=== PATIENT | male | born 1960 | race Caucasian/White ===

== ENCOUNTER 2016-08-23 13:11 | Inpatient (IN) | payer OTHER ==
[~2016-08-23] VITALS: Ht 177.8 cm; Wt 90.0 kg
[2016-08-23] VITALS (11 sets, daily range): BP systolic 108–178; BP diastolic 77–118; PULSE 87–150; RESP 14–23; TEMP 98.5; O2SAT 94–99
[~2016-08-23 13:11] MED LIST: AMIO200 PO; ASPI81TA21 PO; ATOR20TA42 PO; COUM1TAB PO; COUM5TAB PO; DIGO.25 PO; DILTCD240 PO; ENOX60P SQ; GLUCTAB PO; METO25 PO; WARF5TAB PO
[2016-08-23] MEDS ORDERED: DILTIAZEM HCL 25 MG/5 ML VIAL IV PUSH ONE (13:45)
[2016-08-23] MEDS ORDERED: SODIUM CHLORIDE 0.9% FLUSH 5 ML FLUSH IVF PRN ×3 (13:45→16:45)
[2016-08-23] MEDS ORDERED: ASPIRIN 81 MG CHEW TAB PO ONE (13:45)
--- NOTE | 2016-08-23 13:48 | PD ---
HPI . Rapid heartbeat Chief Complaint: Cardiac Complaint Time Seen by Provider: 13:30 Travel History International Travel<30 days: No Contact w/Intl Traveler<30days: No Traveled to known affect area: No History of Present Illness HPI Patient was sent to us from his primary care physician's office for rapid heartbeat. Patient reports no complaints. He states that he went there today to reestablish care. He states that his insurance had run out and he just recently got insurance back. As been out of all of his medications except Coumadin for a while now. He ran out of Coumadin about 3 days ago. He states that he always has an irregular heartbeat. 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) Psychiatric: No Reproductive: No Respiratory: No Seizures: Yes (NO MEDS) Thyroid Disease: No Tetanus Vaccination: < 5 Years Influenza Vaccination: No Past Surgical History Abdominal Surgery: Yes (APPENDECTOMY) Appendectomy: Yes Body Medical Devices: CARDIAC STENTS, plates and pins under r eye, AORTIC VALVE Cardiac Surgery: Yes (AVR) Coronary Artery Bypass Graft: Yes (TRIPLE BYPASS MAR 2015) Coronary Stent: Yes Ear Surgery: No Endocrine Surgery: No Eye Surgery: Yes (RT EYE SOCKET SHATTERED R/T TRAUMA) Genitourinary Surgery: No Joint Replacement: No Oral Surgery: Yes (TONSILLECTOMY) Pacemaker: No Thoracic Surgery: No Tonsillectomy: Yes Other Surgery: Yes (open heart , tonsilectomy, appy, cancer removal, facial) Social History Alcohol Use: Yes (often) Tobacco Use: Yes (CIGARETTES 1 PPD) Substance Use: No Allergies-Medications (Allergen,Severity, Reaction): Coded Allergies: No Known Allergies (Verified , 08/23/16) Reported Meds & Prescriptions Reported Meds & Active Scripts Active Reported Metoprolol Tartrate 25 Mg Tab 25 Mg PO BID Metformin ER (Metformin HCl) 500 Mg Tab 500 Mg PO DAILY Warfarin 10 Mg Tab 9 Mg PO DAILY Diltiazem HCl (Diltiazem HCl Extended Release) 360 Mg Cap 240 Mg MT DAILY Digoxin 0.25 Mg Tab 0.25 Mg PO DAILY Lipitor (Atorvastatin Calcium) 20 Mg Tab 20 Mg PO HS Aspirin 81 Mg Tabdr 81 Mg PO DAILY Review of Systems Except as stated in HPI: all other systems reviewed are Neg HENT: No: Lightheadedness Cardiovascular: No: Chest Pain or Discomfort, Palpitations Respiratory: No: Shortness of Breath Physical Exam Narrative GENERAL: Healthy-appearing older gentleman in no acute distress. SKIN: Warm and dry. HEAD: Atraumatic. Normocephalic. EYES: Pupils equal and round. ENT: No nasal bleeding or discharge. Mucous membranes pink and moist. NECK: Trachea midline. No JVD. CARDIOVASCULAR: Regular, rapid rate and rhythm. RESPIRATORY: No accessory muscle use. Lungs are clear with full air movement throughout. GASTROINTESTINAL: Abdomen soft, non-tender, nondistended. MUSCULOSKELETAL: No obvious deformities. No edema. NEUROLOGICAL: Awake and alert. No obvious cranial nerve deficits. Motor grossly within normal limits. Normal speech. PSYCHIATRIC: Appropriate mood and affect; insight and judgment normal. Data Data Last Documented VS Vital Signs Date Time Temp Pulse Resp B/P Pulse Ox O2 Delivery O2 Flow Rate FiO2 08/23/16 14:04 98 18 133/93 97 Room Air 08/23/16 13:13 98.5 Orders Ecg Monitoring (08/23/16 13:31) Blood Pressure (08/23/16 13:31) Iv Access Insert/Monitor (08/23/16 13:31) Oximetry (08/23/16 13:31) Vital Signs (08/23/16 13:31) Diltiazem Inj (Cardizem Inj) (08/23/16 13:45) Diltiazem Inj (Cardizem Inj) (08/23/16 13:45) Sodium Chloride 0.9% Flush (Ns Flush) (08/23/16 13:45) Electrocardiogram (08/23/16 13:32) Basic Metabolic Panel (Bmp) (08/23/16 13:32) Ckmb (Isoenzyme) Profile (08/23/16 13:32) Complete Blood Count With Diff (08/23/16 13:32) D-Dimer (08/23/16 13:32) Magnesium (Mg) (08/23/16 13:32) Prothrombin Time / Inr (Pt) (08/23/16 13:32) Act Partial Throm Time (Ptt) (08/23/16 13:32) Troponin I (08/23/16 13:32) Chest, Single Ap (08/23/16 13:32) Bilateral Bp Monitoring (08/23/16 13:32) Oxygen Administration (08/23/16 13:32) Aspirin Chew (Aspirin Chew) (08/23/16 13:45) Sodium Chloride 0.9% Flush (Ns Flush) (08/23/16 13:45) CKMB (08/23/16 13:35) CKMB% (08/23/16 13:35) Labs Laboratory Tests Test 08/23/16 13:35 White Blood Count 11.4 TH/MM3 Red Blood Count 5.22 MIL/MM3 Hemoglobin 17.4 GM/DL Hematocrit 51.3 % Mean Corpuscular Volume 98.2 FL Mean Corpuscular Hemoglobin 33.3 PG Mean Corpuscular Hemoglobin 33.9 % Concent Red Cell Distribution Width 14.4 % Platelet Count 226 TH/MM3 Mean Platelet Volume 8.2 FL Neutrophils (%) (Auto) 67.9 % Lymphocytes (%) (Auto) 20.6 % Monocytes (%) (Auto) 8.2 % Eosinophils (%) (Auto) 2.6 % Basophils (%) (Auto) 0.7 % Neutrophils # (Auto) 7.8 TH/MM3 Lymphocytes # (Auto) 2.4 TH/MM3 Monocytes # (Auto) 0.9 TH/MM3 Eosinophils # (Auto) 0.3 TH/MM3 Basophils # (Auto) 0.1 TH/MM3 CBC Comment DIFF FINAL Differential Comment Prothrombin Time 11.6 SEC Prothromb Time International 1.0 RATIO Ratio Activated Partial 27.2 SEC Thromboplast Time D-Dimer Quantitative (PE/DVT) 1.18 MG/L FEU Sodium Level 138 MEQ/L Potassium Level 4.2 MEQ/L Chloride Level 107 MEQ/L Carbon Dioxide Level 24.4 MEQ/L Anion Gap 7 MEQ/L Blood Urea Nitrogen 26 MG/DL Creatinine 1.15 MG/DL Estimat Glomerular Filtration 66 ML/MIN Rate Random Glucose 90 MG/DL Calcium Level 8.8 MG/DL Magnesium Level 2.2 MG/DL Total Creatine Kinase 110 U/L Creatine Kinase MB 1.8 NG/ML Troponin I 0.02 NG/ML [facility] Medical Decision Making Medical Screen Exam Complete: Yes Emergency Medical Condition: Yes Medical Record Reviewed: Yes (medical history is significant for a flutter, previous multivessel CABG and previous St. found. His last echo was done about a year ago and showed an ejection fraction of 50-55%. He had mild left ventricular dilation.) Interpretation(s) EKG shows atrial flutter with a rate of 146. The atrial flutter is not new. However his rate has been previously controlled. Differential Diagnosis Differential diagnosis includes but is not limited to tachycardia, SVT, atrial fibrillation with rapid ventricular response, atrial flutter with rapid ventricular. Narrative Course Patient presents asymptomatic with the chief complaint of a rapid heart rate. He is in atrial flutter with a rapid ventricular response. I have ordered Cardizem. Patient's heart rate quickly went below 100 following the Cardizem bolus. He has continued to have a rate less than 100. He has not required an additional bolus of Cardizem nor has he required a drip. Last Impressions Chest X-Ray 08/23/16 1332 Signed Impressions: Service Date/Time: Tuesday, August 23, 2016 13:44 - CONCLUSION: 1. Coarse streaky opacity at the left lung base which appears mildly increased from the prior study. 2. The left costophrenic angle now appears mildly blunted which could indicate a small effusion. 3. That is post median sternotomy with no evidence of perihilar edema. Willian Rai MD The chest x-ray was independently viewed by me. The patient reports no respiratory distress. CBC & BMP Diagram 08/23/16 13:35 Cardiac enzymes are negative. INR is 1.18. I will restart his usual medications. I will give him a prescription for Lovenox to use until his INR becomes therapeutic. He needs to follow up with his doctor later this week. Diagnosis Primary Impression: Paroxysmal atrial fibrillation Additional Impression: Subtherapeutic international normalized ratio (INR) Additional Instructions: Lovenox for now until INR is appropriate. See your doctor later this week for recheck. Scripts Enoxaparin Inj (Lovenox Inj)100 Mg/Ml Syr90 Mg SQ BID #10 SYRINGE Ref 0 Prov:Aliza Haro MD 08/23/16 Metoprolol Tartrate 25 Mg Tab25 Mg PO BID #60 TAB Ref 0 Prov:Aliza Haro MD 08/23/16 Metformin ER 500 Mg Cut733 Mg PO DAILY 90 Days Prov:Aliza Haro MD 08/23/16 Warfarin 10 Mg Tab9 Mg PO DAILY #30 TAB Ref 0 Prov:Aliza Haro MD 08/23/16 Diltiazem HCl Extended Release (Diltiazem HCl)360 Mg Mnl055 Mg MT DAILY 90 Days Prov:Aliza Haro MD 08/23/16 Digoxin 0.25 Mg Tab0.25 Mg PO DAILY #30 TAB Ref 0 Prov:Aliza Haro MD 08/23/16 Atorvastatin (Lipitor)20 Mg Tab20 Mg PO HS #30 TAB Ref 0 Prov:Aliza Haro MD 08/23/16 Aspirin 81 Mg Tabdr81 Mg PO DAILY 90 Days Prov:Aliza Haro MD 08/23/16 Disposition: 01 DISCHARGE HOME Condition: Stable Aliza Haro MD Aug 23, 2016 13:48
[2016-08-23 13:56] LABS: AUTOMATED NEUTROPHIL # 7.8 TH/MM3 (1.8-7.7); BASOPHIL # 0.1 TH/MM3 (0-0.2); BASOPHIL % 0.7 % (0.0-2.0); EOSINOPHIL # 0.3 TH/MM3 (0-0.4); EOSINOPHIL % 2.6 % (0.0-4.0); HEMATOCRIT 51.3 % (39.0-51.0); HEMO FLAGS DIFF FINAL; LYMPH % 20.6 % (9.0-44.0); LYMPHOCYTE # 2.4 TH/MM3 (1.0-4.8); MEAN CELL VOLUME 98.2 FL (80.0-100.0); MEAN CORPUSCULAR HEMOGLOBIN 33.3 PG (27.0-34.0); MEAN CORPUSCULAR HGB CONC 33.9 % (32.0-36.0); MONO % 8.2 % (0.0-8.0); NEUT % 67.9 % (16.0-70.0); PLATELET COUNT 226 TH/MM3 (150-450); RED BLOOD COUNT 5.22 MIL/MM3 (4.50-5.90); RED CELL DISTRIBUTION WIDTH 14.4 % (11.6-17.2); WHITE BLOOD COUNT 11.4 TH/MM3 (4.0-11.0)
[2016-08-23] MEDS ORDERED: DILT1CAP9 MT ×2 (14:04→14:47)
[2016-08-23] MEDS ORDERED: WARF-22 PO ×2 (14:04→14:47)
[2016-08-23] MEDS ORDERED: DIGO0.25 PO ×2 (14:04→14:47)
[2016-08-23] MEDS ORDERED: METO25TA3 PO ×2 (14:04→14:47)
[2016-08-23] MEDS ORDERED: LIPI20TA PO ×2 (14:04→14:47)
[2016-08-23] MEDS ORDERED: METF-639 PO ×2 (14:04→14:47)
[2016-08-23] MEDS ORDERED: ASPI1TAB69 PO ×2 (14:04→14:47)
[2016-08-23 14:11] LABS: APTT (PATIENT) 27.2 SEC (24.3-30.1); PROTHROMBIN TIME - PATIENT 11.6 SEC (9.8-11.6)
[2016-08-23 14:15] LABS: ANION GAP 7 MEQ/L (5-15); BICARBONATE 24.4 MEQ/L (21.0-32.0); BLOOD UREA NITROGEN 26 MG/DL (7-18); CHLORIDE 107 MEQ/L (98-107); CREATINE KINASE 110 U/L (39-308); GLOMERULAR FILTRATION RATE 66 ML/MIN (>89); MAGNESIUM 2.2 MG/DL (1.5-2.5); POTASSIUM 4.2 MEQ/L (3.5-5.1); SODIUM (NA) 138 MEQ/L (136-145)
[2016-08-23 14:28] LABS: CKMB 1.8 NG/ML (0.5-3.6)
--- NOTE | 2016-08-23 14:31 | RADRPT ---
EXAM DATE/TIME: 08/23/2016 13:44 [facility] COMPARISON: CHEST SINGLE AP, March 26, 2015, 5:08. CHEST SINGLE AP, September 11, 2015, 12:15. INDICATIONS : Shortness of breath. MEDICAL HISTORY : Hypertension. Myocardial infarction. SURGICAL HISTORY : CABG. ENCOUNTER: Initial ACUITY: 1 day PAIN SCORE: 0/10 LOCATION: Bilateral chest FINDINGS: A single AP portable erect view of the chest was obtained and again demonstrates that the patient is status post median sternotomy there is coarse streaky opacity at the left lung base which is mildly i ncreased from the prior study. The left lateral costophrenic angle appears mildly blunted. The right lung is clear. The heart size remains at the upper limits of normal with no perihilar edema. There is an artificial heart valve in place. CONCLUSION: 1. Coarse streaky opacity at the left lung base which appears mildly increased from the prior study. 2. The left costophrenic angle now appears mildly blunted which could indicate a small effusion. 3. That is post median sternotomy with no evidence of perihilar edema. Willian Rai MD on August 23, 2016 at 14:27 Board Certified Radiologist. This report was verified electronically.
[2016-08-23] MEDS ORDERED: ENOX100P SQ (14:47)
[2016-08-23] MEDS: DILTIAZEM INJ 125 MG in SODIUM CHLORIDE 0.9% INJ 100 ML IV SCH ×2 (16:14→16:38)
[2016-08-23] MEDS ORDERED: SODIUM CHLORIDE 0.9% FLUSH 5 ML FLUSH FLUSH PRN (16:45)
[2016-08-23] MEDS ORDERED: BISACODYL 10 MG SUPP PR PRN (16:45)
[2016-08-23] MEDS ORDERED: DILTIAZEM INJ 125 MG in SODIUM CHLORIDE 0.9% INJ 100 ML IV SCH (16:45)
[2016-08-23] MEDS ORDERED: ACETAMINOPHEN 325 MG TAB PO PRN (16:45)
[2016-08-23] MEDS ORDERED: NALOXONE HCL 0.4 MG/ML AMP IV PRN (16:45)
[2016-08-23] MEDS ORDERED: ENOXAPARIN SODIUM 40 MG/0.4 ML SYRINGE SQ SCH (16:45)
[2016-08-23] MEDS ORDERED: ONDANSETRON HCL 4 MG/2 ML VIAL IVP PRN (16:45)
[2016-08-23] MEDS ORDERED: MAGNESIUM HYDROXIDE SUSP 30 ML CUP PO PRN (16:45)
[2016-08-23] MEDS ORDERED: DILTIAZEM HCL 50 MG/10 ML VIAL IV PUSH ONE (17:00)
[2016-08-23] MEDS ORDERED: DEXTROSE 50% IN WATER 50 ML VIAL(D50) IV PUSH PRN (17:15)
[2016-08-23] MEDS ORDERED: GLUCAGON 1 MG/ML VIAL OTHER PRN (17:15)
[2016-08-23] MEDS ORDERED: WARFARIN SOD 3 MG TAB PO SCH (17:30)
[2016-08-23] MEDS: metFORMIN HCL 500 MG TAB PO SCH (18:20)
--- NOTE | 2016-08-23 19:28 | HHI.HP ---
HPI Service CP Hospitalists Primary Care Physician Yury Garcia Admission Diagnosis AF with RVR Chief Complaint: rapid heart rate Travel History International Travel<30 Days: No Contact w/Intl Traveler <30 Da: No Traveled to Known Affected Are: No History of Present Illness 56 y/o male with history of atrial fib /flutter on metoprolol and cardiazem also on coumadin who just got insurance and was without and waws unable to take his meds . Patient went to [facility] new PCP found to have rapid heart rate and sent to [place] for evaluation. In [place] was found to be in rapid a flutter started on cardiazem which initially helped then heart rate went back up and admitted and will restart his known medication . Patient to restart coumadin and use lovenox until therapeutis . Patient with hx AVR. Patient denies chest pain, shortness of breath,nausea or vomit. Review of Systems Cardiovascular: COMPLAINS OF: Palpitations Past Family Social History Past Medical History hyperlipidemia,CAD,dm,djd hx melanoma ,atrial fib,seizure in past Past Surgical History appendix,cardiac stent,triple by passs ,AVR,rt eye trama tonsil Reported Medications metoprolol 25 bid,metformin 250bid,coumadin 9,diltiazem 240,digoxin.25,[id number] ,asa Allergies: Coded Allergies: No Known Allergies (Verified , 08/23/16) Social History smokes 1ppd Physical Exam Vital Signs Vital Signs Date Time Temp Pulse Resp B/P Pulse Ox O2 Delivery O2 Flow Rate FiO2 08/23/16 18:22 115 20 140/94 97 Room Air 08/23/16 17:31 114 20 141/94 95 Room Air 08/23/16 16:12 94 20 126/85 97 Room Air 08/23/16 14:04 98 18 133/93 97 Room Air 08/23/16 13:43 148 18 178/111 96 Room Air 08/23/16 13:38 97 Room Air 08/23/16 13:38 20 97 Room Air 08/23/16 13:30 148 20 97 Room Air 08/23/16 13:13 98.5 150 14 166/118 96 Room Air Physical Exam GENERAL: This is a well-nourished, well-developed patient, in no apparent distress. SKIN: No rashes, ecchymoses or lesions. Cool and dry. HEAD: Atraumatic. Normocephalic. No temporal or scalp tenderness. EYES: Pupils equal round and reactive. Extraocular motions intact. No scleral icterus. No injection or drainage. ENT: Nose without bleeding, purulent drainage or septal hematoma. Throat without erythema, tonsillar hypertrophy or exudate. Uvula midline. Airway patent. NECK: Trachea midline. No JVD or lymphadenopathy. Supple, nontender, no meningeal signs. CARDIOVASCULAR: IRREG rate and rhythm without murmurs, gallops, or rubs. RESPIRATORY: Clear to auscultation. Breath sounds equal bilaterally. No wheezes , rales, or rhonchi. GASTROINTESTINAL: Abdomen soft, non-tender, nondistended. No hepato-splenomegaly , or palpable masses. No guarding. MUSCULOSKELETAL: Extremities without clubbing, cyanosis, or edema. No joint tenderness, effusion, or edema noted. No calf tenderness. Negative Homans sign bilaterally. NEUROLOGICAL: Awake and alert. Cranial nerves II through XII intact. Motor and sensory grossly within normal limits. Five out of 5 muscle strength in all muscle groups. Normal speech. Laboratory Laboratory Tests Test 08/23/16 13:35 White Blood Count 11.4 Red Blood Count 5.22 Hemoglobin 17.4 Hematocrit 51.3 Mean Corpuscular Volume 98.2 Mean Corpuscular Hemoglobin 33.3 Mean Corpuscular Hemoglobin 33.9 Concent Red Cell Distribution Width 14.4 Platelet Count 226 Mean Platelet Volume 8.2 Neutrophils (%) (Auto) 67.9 Lymphocytes (%) (Auto) 20.6 Monocytes (%) (Auto) 8.2 Eosinophils (%) (Auto) 2.6 Basophils (%) (Auto) 0.7 Neutrophils # (Auto) 7.8 Lymphocytes # (Auto) 2.4 Monocytes # (Auto) 0.9 Eosinophils # (Auto) 0.3 Basophils # (Auto) 0.1 CBC Comment DIFF FINAL Differential Comment Prothrombin Time 11.6 Prothromb Time International 1.0 Ratio Activated Partial 27.2 Thromboplast Time D-Dimer Quantitative (PE/DVT) 1.18 Sodium Level 138 Potassium Level 4.2 Chloride Level 107 Carbon Dioxide Level 24.4 Anion Gap 7 Blood Urea Nitrogen 26 Creatinine 1.15 Estimat Glomerular Filtration 66 Rate Random Glucose 90 Calcium Level 8.8 Magnesium Level 2.2 Total Creatine Kinase 110 Creatine Kinase MB 1.8 Troponin I 0.02 Result Diagram: 08/23/16 1335 08/23/16 1335 Imaging Last 24 hours Impressions Chest X-Ray 08/23/16 1332 Signed Impressions: Service Date/Time: Tuesday, August 23, 2016 13:44 - CONCLUSION: 1. Coarse streaky opacity at the left lung base which appears mildly increased from the prior study. 2. The left costophrenic angle now appears mildly blunted which could indicate a small effusion. 3. That is post median sternotomy with no evidence of perihilar edema. Willian Rai MD Course in er started on cardiazem IV Assessment and Plan Problem List: (1) Paroxysmal atrial fibrillation Status: Acute Plan: started on cardiazem drip and will restart his regular meds (2) Subtherapeutic international normalized ratio (INR) Status: Acute Plan: restart coumadin and add lovenox until therapeutic (3) Diabetes Status: Chronic Plan: continue home meds Assessment and Plan further plan depending on response to cardiazem also ? abnormal chest xray no signs of chf or pneumonia will follow up xray and lab work . Patient did have abnormal d dimmer will get CTA Code Status full Discussed Condition With patient Physician Certification 2 Midnight Certification Type: Admission for Inpatient Services Order for Inpatient Services The services are ordered in accordance with Medicare regulations or non- Medicare payer requirements, as applicable. In the case of services not specified as inpatient-only, they are appropriately provided as inpatient services in accordance with the 2-midnight benchmark. Estimated LOS (days): 3 3 days is the estimated time the patient will need to remain in the hospital, assuming treatment plan goals are met and no additional complications. Post-Hospital Plan: Not yet determined Problem Qualifiers (1) Diabetes: Brandon Nicholson MD Aug 23, 2016 19:28
--- NOTE | 2016-08-23 19:44 | HHI.HP ---
HPI Service CP Hospitalists Primary Care Physician Yury Garcia Admission Diagnosis AF with RVR Travel History International Travel<30 Days: No Contact w/Intl Traveler <30 Da: No Traveled to Known Affected Are: No History of Present Illness 56 y/o male with history of atrial fib /flutter on metoprolol and cardiazem also on coumadin who just got insurance and was without and waws unable to take his meds . Patient went to [facility] new PCP found to have rapid heart rate and sent to [place] for evaluation. In er was found to be in rapid a flutter started on cardiazem which initially helped then heart rate went back up and admitted and will restart his known medication . Patient to restart coumadin and use lovenox until therapeutis . Patient with hx AVR. Patient denies chest pain, shortness of breath,nausea or vomit. Past Family Social History Past Medical History hyperlipidemia,CAD,dm,djd hx melanoma ,atrial fib,seizure in past Past Surgical History appendix,cardiac stent,triple by passs ,AVR,rt eye trama tonsil Allergies: Coded Allergies: No Known Allergies (Verified , 08/23/16) Social History smokes 1ppd Physical Exam Vital Signs Vital Signs Date Time Temp Pulse Resp B/P Pulse Ox O2 Delivery O2 Flow Rate FiO2 08/23/16 18:22 115 20 140/94 97 Room Air 08/23/16 17:31 114 20 141/94 95 Room Air 08/23/16 16:12 94 20 126/85 97 Room Air 08/23/16 14:04 98 18 133/93 97 Room Air 08/23/16 13:43 148 18 178/111 96 Room Air 08/23/16 13:38 97 Room Air 08/23/16 13:38 20 97 Room Air 08/23/16 13:30 148 20 97 Room Air 08/23/16 13:13 98.5 150 14 166/118 96 Room Air Physical Exam GENERAL: This is a well-nourished, well-developed patient, in no apparent distress. SKIN: No rashes, ecchymoses or lesions. Cool and dry. HEAD: Atraumatic. Normocephalic. No temporal or scalp tenderness. EYES: Pupils equal round and reactive. Extraocular motions intact. No scleral icterus. No injection or drainage. ENT: Nose without bleeding, purulent drainage or septal hematoma. Throat without erythema, tonsillar hypertrophy or exudate. Uvula midline. Airway patent. NECK: Trachea midline. No JVD or lymphadenopathy. Supple, nontender, no meningeal signs. CARDIOVASCULAR: Regular rate and rhythm without murmurs, gallops, or rubs. RESPIRATORY: Clear to auscultation. Breath sounds equal bilaterally. No wheezes , rales, or rhonchi. GASTROINTESTINAL: Abdomen soft, non-tender, nondistended. No hepato-splenomegaly , or palpable masses. No guarding. MUSCULOSKELETAL: Extremities without clubbing, cyanosis, or edema. No joint tenderness, effusion, or edema noted. No calf tenderness. Negative Homans sign bilaterally. NEUROLOGICAL: Awake and alert. Cranial nerves II through XII intact. Motor and sensory grossly within normal limits. Five out of 5 muscle strength in all muscle groups. Normal speech. Laboratory Laboratory Tests Test 08/23/16 13:35 White Blood Count 11.4 Red Blood Count 5.22 Hemoglobin 17.4 Hematocrit 51.3 Mean Corpuscular Volume 98.2 Mean Corpuscular Hemoglobin 33.3 Mean Corpuscular Hemoglobin 33.9 Concent Red Cell Distribution Width 14.4 Platelet Count 226 Mean Platelet Volume 8.2 Neutrophils (%) (Auto) 67.9 Lymphocytes (%) (Auto) 20.6 Monocytes (%) (Auto) 8.2 Eosinophils (%) (Auto) 2.6 Basophils (%) (Auto) 0.7 Neutrophils # (Auto) 7.8 Lymphocytes # (Auto) 2.4 Monocytes # (Auto) 0.9 Eosinophils # (Auto) 0.3 Basophils # (Auto) 0.1 CBC Comment DIFF FINAL Differential Comment Prothrombin Time 11.6 Prothromb Time International 1.0 Ratio Activated Partial 27.2 Thromboplast Time D-Dimer Quantitative (PE/DVT) 1.18 Sodium Level 138 Potassium Level 4.2 Chloride Level 107 Carbon Dioxide Level 24.4 Anion Gap 7 Blood Urea Nitrogen 26 Creatinine 1.15 Estimat Glomerular Filtration 66 Rate Random Glucose 90 Calcium Level 8.8 Magnesium Level 2.2 Total Creatine Kinase 110 Creatine Kinase MB 1.8 Troponin I 0.02 Result Diagram: 08/23/16 5727 08/23/16 0649 Imaging Last 24 hours Impressions Chest X-Ray 08/23/16 1332 Signed Impressions: Service Date/Time: Tuesday, August 23, 2016 13:44 - CONCLUSION: 1. Coarse streaky opacity at the left lung base which appears mildly increased from the prior study. 2. The left costophrenic angle now appears mildly blunted which could indicate a small effusion. 3. That is post median sternotomy with no evidence of perihilar edema. Willian Rai MD Assessment and Plan Problem List: (1) Paroxysmal atrial fibrillation Status: Acute Plan: started on cardiazem drip and will restart his regular meds (2) Subtherapeutic international normalized ratio (INR) Status: Acute Plan: restart coumadin and add lovenox until therapeutic (3) Diabetes Status: Chronic Plan: continue home meds (4) Atrial flutter with rapid ventricular response Status: Acute Plan: start cardiazem drip restart on medications consult cardiology Assessment and Plan Patient had positive d dimmer will get CTA also chest xray slightly abnormal will recheck and recheck labs Code Status full Discussed Condition With patient Physician Certification 2 Midnight Certification Type: Admission for Inpatient Services Order for Inpatient Services The services are ordered in accordance with Medicare regulations or non- Medicare payer requirements, as applicable. In the case of services not specified as inpatient-only, they are appropriately provided as inpatient services in accordance with the 2-midnight benchmark. Estimated LOS (days): 3 3 days is the estimated time the patient will need to remain in the hospital, assuming treatment plan goals are met and no additional complications. Post-Hospital Plan: Not yet determined Problem Qualifiers (1) Diabetes: Brandon Nicholson MD Aug 23, 2016 19:44
[2016-08-23] MEDS ORDERED: IOHEXOL 350 MG/ML 10 ML VIAL (for RAD DIAG) IV ONE (20:23)
[2016-08-23] MEDS: SODIUM CHLORIDE 0.9% FLUSH 5 ML FLUSH FLUSH SCH (20:52)
[2016-08-23] MEDS: ENOXAPARIN SODIUM 100 MG/ML SYRINGE SQ SCH (20:56)
[2016-08-23] MEDS ORDERED: ATORVASTATIN 20 MG TAB PO SCH (21:00)
[2016-08-23] MEDS ORDERED: METOPROLOL TARTRATE 25 MG TAB PO SCH (21:00)
--- NOTE | 2016-08-23 21:03 | RADRPT ---
EXAM DATE/TIME: 08/23/2016 20:18 [facility] COMPARISON: No previous studies available for comparison. INDICATIONS : Rapid heart beat with elevated D-Dimer. IV CONTRAST: 65 cc Omnipaque 350 (iohexol) IV RADIATION DOSE: 23.16 CTDIvol (mGy) MEDICAL HISTORY : Cardiovascular disease. Hypertension. Diabetes mellitus type 2.Melanoma SURGICAL HISTORY : Cardiac valve replacement ENCOUNTER: Initial ACUITY: 1 day PAIN SCALE: 0/10 LOCATION: Chest TECHNIQUE: Volumetric scanning of the chest was performed using a pulmonary embolism protocol MIP images were reconstructed. Using automated exposure control and adjustment of the mA and/or kV acco rding to patient size, radiation dose was kept as low as reasonably achievable to obtain optimal diag nostic quality images. FINDINGS: No pulmonary embolus is seen. The lungs demonstrate emphysematous change in the mid an d upper lungs. There is some increased density at the posterior left lung base likely representing at electasis or consolidation. There is a lesser degree of consolidation or atelectasis at the anterior lateral left base. There is a mild pleural effusion on the left side. The patient is status post sternotomy. There is a prosthetic aortic valve in place. There is aneurys mal dilatation of the ascending aorta measuring up to 4.5 cm. CONCLUSION: 1. No pulmonary embolus. 2. Diffuse emphysematous change. 3. Mild left pleural effusion with some focal areas of consolidation or atelectasis at the left base. Patrice Cota MD on August 23, 2016 at 20:37 Board Certified Radiologist. This report was verified electronically.
[2016-08-23] MEDS: INSULIN ASPART SUPPLEMENTAL SCALE SQ SCH (21:04)
[2016-08-24] VITALS (7 sets, daily range): BP systolic 111–132; BP diastolic 71–81; PULSE 68–80; RESP 15–20; TEMP 97.8; O2SAT 93–96
--- NOTE | 2016-08-24 05:55 | RADRPT ---
EXAM DATE/TIME: 08/24/2016 05:35 [facility] COMPARISON: CHEST PA & LAT, March 19, 2015, 13:01. INDICATIONS : Chest pain. MEDICAL HISTORY : Hypertension. Myocardial infarction. SURGICAL HISTORY : CABG. ENCOUNTER: Subsequent ACUITY: 2 days PAIN SCORE: 0/10 LOCATION: Bilateral chest FINDINGS: The cardiac silhouette is normal in transverse diameter. Median sternotomy wires are present. A prost hetic valve is in place. There is left lower lobe atelectasis versus pneumonia. A small left sided ef fusion is present.CONCLUSION: 1. Cardiomegaly Left lower lobe atelectasis versus pneumonia.left pleural effusion Doug There is aB. Lelia MD on August 24, 2016 at 5:52 Board Certified Radiologist. This report was verified electronically.
[2016-08-24] MEDS: INSULIN ASPART SUPPLEMENTAL SCALE SQ SCH ×2 (07:00→11:00)
[2016-08-24 07:48] LABS: AUTOMATED NEUTROPHIL # 6.2 TH/MM3 (1.8-7.7); BASOPHIL # 0.1 TH/MM3 (0-0.2); BASOPHIL % 0.8 % (0.0-2.0); EOSINOPHIL # 0.3 TH/MM3 (0-0.4); EOSINOPHIL % 3.2 % (0.0-4.0); HEMO FLAGS DIFF FINAL; LYMPH % 26.2 % (9.0-44.0); LYMPHOCYTE # 2.6 TH/MM3 (1.0-4.8); MEAN CELL VOLUME 98.8 FL (80.0-100.0); MEAN CORPUSCULAR HEMOGLOBIN 33.8 PG (27.0-34.0); MEAN CORPUSCULAR HGB CONC 34.2 % (32.0-36.0); MONO % 8.8 % (0.0-8.0); PLATELET COUNT 214 TH/MM3 (150-450); RED BLOOD COUNT 4.86 MIL/MM3 (4.50-5.90); RED CELL DISTRIBUTION WIDTH 14.2 % (11.6-17.2); WHITE BLOOD COUNT 10.1 TH/MM3 (4.0-11.0)
--- NOTE | 2016-08-24 07:50 | MB ---
cc: FERMÍN HERNANDEZ MD DATE OF CONSULTATION: 08/24/2016 HISTORY OF PRESENT ILLNESS This is a 56-year-old gentleman who is admitted to the hospital with rapid heart rate. He has a history of coronary artery disease and atrial fibrillation and atrial flutter with revascularization in 2014 with aortic valve replacement for severe aortic stenosis. At that time he underwent SANTINO and maze procedure, but has had recurrent atrial fibrillation. He had been medicated with metoprolol, diltiazem and digoxin as well as Coumadin. He recently got his insurance but stopped taking his medications on Tuesday because he had run out. He went to see his primary care doctor and was found to have a rapid heart rate and he was sent to [place] for further evaluation. While here an electrocardiogram has demonstrated atrial flutter with a rapid response. MEDICATIONS His medications at home have included: 1. Metoprolol 25 mg twice a day. 2. Diltiazem 240 mg daily. 3. Digoxin 0.25 mg daily. 4. Warfarin 9 mg daily for thromboembolic control. 5. Metformin. 6. NovoLog sliding scale. 7. Atorvastatin 20 mg daily. His INR here in the hospital was 1.0, probably secondary to medical noncompliance. PAST MEDICAL HISTORY 1. Type 2 diabetes. 2. Hyperlipidemia. ALLERGIES None. SOCIAL HISTORY The patient smokes a pack of cigarettes per day. He has a moderate to heavy use of alcohol. He does not use recreational drugs. PHYSICAL EXAMINATION VITAL SIGNS: Heart rate varies between 80 and 125. Blood pressure is 130/70. NECK: There is no neck vein distension. LUNGS: Clear. CARDIOVASCULAR: Irregular rate and rhythm. No significant murmur is noted and there is no gallop. ABDOMEN: Soft. There is no tenderness or organomegaly. EXTREMITIES: No edema. ASSESSMENT The patient has a long history of atrial fibrillation/flutter with a rapid response, probably secondary to not taking his medications. Certainly agree with restarting them and I have increased the dose of his metoprolol to 50 mg twice a day to help better control his heart rate. Will need to recheck an INR in 2-3 days as he has just been restarted. I have also drawn a lipid profile this morning to further evaluate his LDL in view of his coronary artery disease. MD ELIZABETH Braun/TYSON /7:12 AM /7:40 AM
[2016-08-24 07:55] LABS: INTERNATIONAL NORMALIZED RATIO 1.1 RATIO; PROTHROMBIN TIME - PATIENT 11.7 SEC (9.8-11.6)
[2016-08-24 08:08] LABS: ALT (GPT) 21 U/L (12-78); ANION GAP 7 MEQ/L (5-15); AST (GOT) 14 U/L (15-37); BLOOD UREA NITROGEN 23 MG/DL (7-18); CHLORIDE 103 MEQ/L (98-107); GLOMERULAR FILTRATION RATE 64 ML/MIN (>89); POTASSIUM 4.2 MEQ/L (3.5-5.1); SODIUM (NA) 136 MEQ/L (136-145)
[2016-08-24 08:09] LABS: ALKALINE PHOSPHATASE 81 U/L (45-117); HDL CHOLESTEROL 38.9 MG/DL (40.0-60.0); TOTAL BILIRUBIN ADULT 1.5 MG/DL (0.2-1.0)
[2016-08-24] MEDS ORDERED: DIGOXIN 0.25 MG TAB PO SCH (09:00)
[2016-08-24] MEDS ORDERED: DILTIAZEM-CD 240 MG CAP ER PO SCH (09:00)
[2016-08-24] MEDS ORDERED: ASPIRIN EC 81 MG TABEC PO SCH (09:00)
[2016-08-24] MEDS ORDERED: NON-FORMULARY DRUG (Metformin ER 500 MG) PO SCH (09:00)
[2016-08-24] MEDS: SODIUM CHLORIDE 0.9% FLUSH 5 ML FLUSH FLUSH SCH (09:00)
[2016-08-24] MEDS ORDERED: METOPROLOL TARTRATE 100 MG TAB PO SCH (09:00)
[2016-08-24] MEDS: metFORMIN HCL 500 MG TAB PO SCH ×2 (09:36→13:43)
[2016-08-24] MEDS: ENOXAPARIN SODIUM 100 MG/ML SYRINGE SQ SCH (09:41)
--- NOTE | 2016-08-24 11:10 | EKG ---
Date Performed: 08/23/2016 Time Performed: 13:36:47 PTAGE: 56 years EKG: ATRIAL FLUTTER WITH 2:1 CONDUCTION Compared to previous tracing, increased ventricular rate is new. ABNORMAL ECG PREVIOUS TRACING : 09/11/2015 16.45 DOCTOR: Gabe Hoff Interpretating Date/Time 08/24/2016 11:08:14
[2016-08-24] MEDS ORDERED: METO-338 PO (12:59)
[2016-08-24] MEDS ORDERED: APIX5TAB PO (12:59)
--- NOTE | 2016-08-24 13:02 | HHI.PR ---
Subjective Remarks Pt currently in rate controlled atrial fibrillation Pt is anxious for discharge. Objective Vitals Vital Signs Date Time Temp Pulse Resp B/P Pulse Ox O2 Delivery O2 Flow Rate FiO2 08/24/16 12:00 80 16 132/78 96 Room Air 08/24/16 10:00 76 16 125/76 96 Room Air 08/24/16 08:15 97.8 68 17 124/81 96 Room Air 08/24/16 08:15 Room Air 08/24/16 05:00 78 15 121/72 93 Room Air 08/24/16 04:00 74 16 121/71 94 Room Air 08/24/16 02:00 72 18 94 Room Air 08/24/16 01:00 80 20 111/80 95 Room Air 08/23/16 23:00 92 23 108/77 94 Room Air 08/23/16 22:00 95 20 146/95 98 Room Air 08/23/16 20:54 87 18 130/86 96 Room Air 08/23/16 20:35 102 18 139/79 99 Room Air 08/23/16 18:22 115 20 140/94 97 Room Air 08/23/16 17:31 114 20 141/94 95 Room Air 08/23/16 16:12 94 20 126/85 97 Room Air 08/23/16 14:04 98 18 133/93 97 Room Air 08/23/16 13:43 148 18 178/111 96 Room Air 08/23/16 13:38 97 Room Air 08/23/16 13:38 20 97 Room Air 08/23/16 13:30 148 20 97 Room Air 08/23/16 13:13 98.5 150 14 166/118 96 Room Air 08/23/16 08/23/16 08/24/16 15:00 23:00 07:00 Output Total 280 ml Balance -280 ml Output Urine Total 280 ml # Voids 1 Result Diagram: 08/24/16 0733 08/24/16 0733 Other Results Laboratory Tests Test 08/23/16 08/24/16 13:35 07:33 White Blood Count 11.4 TH/MM3 10.1 TH/MM3 Red Blood Count 5.22 MIL/MM3 4.86 MIL/MM3 Hemoglobin 17.4 GM/DL 16.4 GM/DL Hematocrit 51.3 % 48.0 % Mean Corpuscular Volume 98.2 FL 98.8 FL Mean Corpuscular Hemoglobin 33.3 PG 33.8 PG Mean Corpuscular Hemoglobin 33.9 % 34.2 % Concent Red Cell Distribution Width 14.4 % 14.2 % Platelet Count 226 TH/MM3 214 TH/MM3 Mean Platelet Volume 8.2 FL 8.2 FL Neutrophils (%) (Auto) 67.9 % 61.0 % Lymphocytes (%) (Auto) 20.6 % 26.2 % Monocytes (%) (Auto) 8.2 % 8.8 % Eosinophils (%) (Auto) 2.6 % 3.2 % Basophils (%) (Auto) 0.7 % 0.8 % Neutrophils # (Auto) 7.8 TH/MM3 6.2 TH/MM3 Lymphocytes # (Auto) 2.4 TH/MM3 2.6 TH/MM3 Monocytes # (Auto) 0.9 TH/MM3 0.9 TH/MM3 Eosinophils # (Auto) 0.3 TH/MM3 0.3 TH/MM3 Basophils # (Auto) 0.1 TH/MM3 0.1 TH/MM3 CBC Comment DIFF FINAL DIFF FINAL Differential Comment Prothrombin Time 11.6 SEC 11.7 SEC Prothromb Time International 1.0 RATIO 1.1 RATIO Ratio Activated Partial 27.2 SEC Thromboplast Time D-Dimer Quantitative (PE/DVT) 1.18 MG/L FEU Sodium Level 138 MEQ/L 136 MEQ/L Potassium Level 4.2 MEQ/L 4.2 MEQ/L Chloride Level 107 MEQ/L 103 MEQ/L Carbon Dioxide Level 24.4 MEQ/L 26.0 MEQ/L Anion Gap 7 MEQ/L 7 MEQ/L Blood Urea Nitrogen 26 MG/DL 23 MG/DL Creatinine 1.15 MG/DL 1.19 MG/DL Estimat Glomerular Filtration 66 ML/MIN 64 ML/MIN Rate Random Glucose 90 MG/DL 111 MG/DL Calcium Level 8.8 MG/DL 8.7 MG/DL Magnesium Level 2.2 MG/DL Total Creatine Kinase 110 U/L Creatine Kinase MB 1.8 NG/ML Troponin I 0.02 NG/ML Total Bilirubin 1.5 MG/DL Aspartate Amino Transf 14 U/L (AST/SGOT) Alanine Aminotransferase 21 U/L (ALT/SGPT) Alkaline Phosphatase 81 U/L Total Protein 6.9 GM/DL Albumin 3.4 GM/DL Triglycerides Level 122 MG/DL Cholesterol Level 148 MG/DL LDL Cholesterol 85 MG/DL HDL Cholesterol 38.9 MG/DL Cholesterol/HDL Ratio 3.80 RATIO Imaging Last Impressions Chest X-Ray 08/24/16 0600 Signed Impressions: Service Date/Time: Wednesday, August 24, 2016 05:35 - CONCLUSION: 1. Cardiomegaly Left lower lobe atelectasis versus pneumonia.left pleural effusion Doug There is aB. MD Lelia CT Angiography 08/23/16 0000 Signed Impressions: Service Date/Time: Tuesday, August 23, 2016 20:18 - CONCLUSION: 1. No pulmonary embolus. 2. Diffuse emphysematous change. 3. Mild left pleural effusion with some focal areas of consolidation or atelectasis at the left base. Patrice Cota MD Last 24 hours Impressions Chest X-Ray 08/23/16 1332 Signed Impressions: Service Date/Time: Tuesday, August 23, 2016 13:44 - CONCLUSION: 1. Coarse streaky opacity at the left lung base which appears mildly increased from the prior study. 2. The left costophrenic angle now appears mildly blunted which could indicate a small effusion. 3. That is post median sternotomy with no evidence of perihilar edema. Willian Rai MD Objective Remarks General: NAD, AAOx3 Chest: CTA Cardiac: Irregular, rate controlled Abd: +BS, soft ND/NT Ext: No edema A/P Problem List: (1) Atrial fibrillation and flutter Status: Acute Plan: - Pt presented to the ED at [facility] on 08/23/16 from his PCP office for A. fib RVR - Pt had recently ran out of his medications prior to admission. - Pt found to be in A. fib/flutter with RVR and was started on Cardizem gtt - Pt previous home meds were resumed (Cardizem 240mg po daily, Digoxin 0,25mg po daily, and Metoprolol was increased to 100mg po BID) - Appreciate Cardiology consult - Coumadin was resumed at 9mg po daily - INR was 1.1 today - Pt is on Lovenox 90mg BID - Cont. Lipitor 20mg QHS - Currently pt is rate controlled on telemetry - Pulmonary CTA (08/23) --> No pulmonary embolus. Diffuse emphysematous change. Mild left pleural effusion with some focal areas of consolidation or atelectasis at the left base. - Pt has not had any fevers, cough, congestion and WBC count is WNL. - Pt is anxious to go home. - We will change his anticoagulant to Eliquis 5mg po BID to be started tonight. - He will be discharged home this afternoon and will need followup with Dr. Garcia in [address] Angela in 2-3 weeks. \ - Pt will be discharged on increased dose of Metoprolol 100mg BID. (2) Subtherapeutic international normalized ratio (INR) Status: Acute Plan: - Stop Coumadin and Lovenox - Pt to be discharged on Eliquis 5mg po BID (3) Diabetes Status: Chronic Plan: - Continue home meds Problem Qualifiers (1) Diabetes: Irma Lundy Aug 24, 2016 13:02 Aubrey Randolph DO Aug 29, 2016 06:57
--- NOTE | 2016-08-24 13:03 | HHI.DCPOC ---
Discharge Care Plan Diagnosis: (1) Atrial flutter with rapid ventricular response (2) HTN (hypertension) (3) Diabetes Goals to Promote Your Health - Patient is being discharged with new medications and new prescriptions for his previous medications including: - Metoprolol 100mg twice daily (increased from previous dose for blood pressure management and heart rate control). Start this medication tonight. - Eliquis 5mg twice daily (this is a blood thinner which is taking the place of the Coumadin you were previously taking). Start this medication tonight - Digoxin 0.25mg once daily. Resume this tomorrow morning. - Diltiazem HCL 240mg once daily. Resume this tomorrow morning. - Atorvastatin 20mg before bedtime. Take this tonight. - Aspirin 81mg once daily. Resume this tomorrow morning. - Metformin 500mg once daily. Resume this tomorrow morning. - Pt is to followup with his PCP, Dr. Garcia, in 1 week, call for an appt. - Pt is to followup with Dr. Angela in 2-3 weeks, call for an appt. Directions to Meet Your Goals Take your medications as prescribed Follow your dietary instruction Follow activity as directed Keep your appointments as scheduled Take your immunizations and boosters as scheduled If your symptoms worsen call your PCP, if no PCP go to Urgent Care Center or Emergency Room Smoking is Dangerous to Your Health. Avoid second hand smoke Call the 24-hour hour crisis hotline for domestic abuse at Irma Lundy Aug 24, 2016 13:03 Aubrey Randolph DO Aug 29, 2016 06:57
== END 2016-08-24 14:35 | disposition home or self-care (01) | DRG 310 ==
LOC: NEPA 13:11 → NEDA 16:34 → NEDH 20:59
PROVIDERS: ADMIT Hospitalist; ATTEND Hospitalist
DX: I48.0 Paroxysmal atrial fibrillation (principal); I48.92 Unspecified atrial flutter; I25.10 Atherosclerotic heart disease of native coronary artery without angina pectoris; Z95.1 Presence of aortocoronary bypass graft; Z95.2 Presence of prosthetic heart valve; Z95.5 Presence of coronary angioplasty implant and graft; E11.9 Type 2 diabetes mellitus without complications; Z85.820 Personal history of malignant melanoma of skin; E78.5 Hyperlipidemia, unspecified; M19.90 Unspecified osteoarthritis, unspecified site; F17.210 Nicotine dependence, cigarettes, uncomplicated; Z79.84 Long term (current) use of oral hypoglycemic drugs; Z79.82 Long term (current) use of aspirin; Z91.14 Patient's other noncompliance with medication regimen
CPT/HCPCS: 71010; 71020; 71275; 80048; 80053; 80061; 82550; 82552; 83735; 84484; 85025; 85379; 85610; 85730; 93005; 96374; J1650; J1815; Q9967

== ENCOUNTER 2017-08-17 23:24 | Inpatient (IN) | payer MEDICARE, MEDICAID ==
[~2017-08-17] VITALS: Ht 177.8 cm; Wt 94.5 kg
[~2017-08-17 23:24] MED LIST changes: -AMIO200 PO; +APIX5TAB PO; +ASPI1TAB69 PO; -ASPI81TA21 PO; -ATOR20TA42 PO; -COUM1TAB PO; -COUM5TAB PO; -DIGO.25 PO; +DIGO0.25 PO; +DILT1CAP9 MT; -DILTCD240 PO; -ENOX60P SQ; -GLUCTAB PO; +LIPI20TA PO; +METF-639 PO; +METO-338 PO; -METO25 PO; -WARF5TAB PO
[2017-08-17 23:34] VITALS: BP 116/76; PULSE 119; RESP 15; TEMP 98.9; O2SAT 94
[2017-08-17] MEDS ORDERED: ASPI81CH6 CHEW (23:40)
[2017-08-17] MEDS ORDERED: SODIUM CHLORID 0.9% 500 ML INJ 500 ML IV ONE (23:45)
[2017-08-17] MEDS ORDERED: SODIUM CHLORIDE 0.9% FLUSH 10 ML FLUSH IVF PRN (23:45)
[2017-08-17] MEDS ORDERED: NITROGLYCERIN-D5W 50 MG/250 ML 250 ML IV ONE (23:45)
[2017-08-17 23:47] VITALS: RESP 17; O2SAT 96
--- NOTE | 2017-08-17 23:51 | PD ---
HPI Chief Complaint: Chest Pain Time Seen by Provider: 23:43 Travel History International Travel<30 days: No Contact w/Intl Traveler<30days: No Traveled to known affect area: No History of Present Illness HPI 57-year-old male presents to the emergency department from home by EMS transport for evaluation of chest pain. Patient states he has known coronary vessel disease with previous stent placement and bypass surgery. Patient also has history of diabetes hypertension dyslipidemia and tobaccoism. Patient states he was experiencing 8/10 chest pain across his chest since 4 PM until the paramedics arrived and administered sublingual nitroglycerin 3. Patient rates his discomfort is milder insignificant at this time he gives it a number of 1-2/10 in intensity. Patient denies any shortness of breath. Patient reports earlier he had shortness of breath sweats and nausea but no vomiting. Patient denies any referred neck jaw back shoulder abdominal pain. She also has history of atrial fibrillation and is prescribed Eliquis but has been out of his Eliquis and his digoxin and Cardizem for the past 3 days. Patient used to be under the care of Dr. Flores'carlito but now does not have a medicaid specialist. PFSH Past Medical History Narrative Medical cad, mi cath w stents cabg htn high cholesterol dm tobacco use afib medical non- compliance; nursing notes reviewed Hx Anticoagulant Therapy: Yes (COUMADIN) Blood Disorders: No Cancer: Yes (MELANOMA) Cardiac Catheterization: Yes Cardiovascular Problems: Yes High Cholesterol: Yes Chest Pain: Yes COPD: Yes Coronary Artery Disease: Yes Diabetes: Yes Patient Takes Glucophage: Yes Diminished Hearing: No Endocrine: No Gastrointestinal Disorders: No Genitourinary: No Hepatitis: Yes Hiatal Hernia: No Hypertension: Yes Immune Disorder: No Implanted Vascular Access Dvce: Yes Musculoskeletal: Yes (PAIN IN KNEES) 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) Psychiatric: No Reproductive: No Respiratory: No Seizures: Yes (NO MEDS) Thyroid Disease: No Tetanus Vaccination: < 5 Years Influenza Vaccination: No Past Surgical History Abdominal Surgery: Yes (APPENDECTOMY) Appendectomy: Yes Body Medical Devices: CARDIAC STENTS, plates and pins under r eye, AORTIC VALVE Cardiac Surgery: Yes (AVR) Coronary Artery Bypass Graft: Yes (TRIPLE BYPASS MAR 2015) Coronary Stent: Yes Ear Surgery: No Endocrine Surgery: No Eye Surgery: Yes (RT EYE SOCKET SHATTERED R/T TRAUMA) Genitourinary Surgery: No Joint Replacement: No Oral Surgery: Yes (TONSILLECTOMY) Pacemaker: No Thoracic Surgery: No Tonsillectomy: Yes Other Surgery: Yes (open heart , tonsilectomy, appy, cancer removal, facial) Social History Alcohol Use: Yes (often) Tobacco Use: Yes (1 PPD) Substance Use: No Allergies-Medications (Allergen,Severity, Reaction): Coded Allergies: No Known Allergies (Verified Allergy, Unknown, 08/17/17) Reported Meds & Prescriptions Reported Meds & Active Scripts Active Eliquis (Apixaban) 5 Mg Tab 5 Mg PO BID Lopressor (Metoprolol Tartrate) 100 Mg Tab 100 Mg PO BID Metformin ER (Metformin HCl) 500 Mg Tab 500 Mg PO DAILY 90 Days Diltiazem HCl (Diltiazem HCl Extended Release) 360 Mg Cap 240 Mg MT DAILY 90 Days Digoxin 0.25 Mg Tab 0.25 Mg PO DAILY Lipitor (Atorvastatin Calcium) 20 Mg Tab 20 Mg PO HS Reported Aspirin Low Dose (Aspirin) 81 Mg Chew 81 Mg CHEW DAILY Review of Systems Except as stated in HPI: all other systems reviewed are Neg Physical Exam Narrative GENERAL: Well developed well nourished male in no acute distress no respiratory distress. SKIN: Warm and dry. HEAD: Normocephalic. EYES: No scleral icterus. No injection or drainage. NECK: Supple, trachea midline. No JVD or lymphadenopathy. CARDIOVASCULAR: Regular rate and rhythm without murmurs, gallops, or rubs. RESPIRATORY: Breath sounds equal bilaterally. No accessory muscle use. GASTROINTESTINAL: Abdomen soft, non-tender, nondistended. MUSCULOSKELETAL: No cyanosis, or edema. BACK: Nontender without obvious deformity. No CVA tenderness. Data Data Last Documented VS Vital Signs Date Time Temp Pulse Resp B/P (MAP) Pulse Ox O2 Delivery O2 Flow Rate FiO2 08/18/17 01:00 78 16 91/55 (67) 98 Room Air 08/17/17 23:47 2.00 08/17/17 23:34 98.9 Orders Orders Electrocardiogram (08/17/17 23:43) Basic Metabolic Panel (Bmp) (08/17/17 23:43) B-Type Natriuretic Peptide (08/17/17 23:43) Ckmb (Isoenzyme) Profile (08/17/17 23:43) Complete Blood Count With Diff (08/17/17 23:43) Magnesium (Mg) (08/17/17 23:43) Prothrombin Time / Inr (Pt) (08/17/17 23:43) Act Partial Throm Time (Ptt) (08/17/17 23:43) Troponin I (08/17/17 23:43) Chest, Single Ap (08/17/17 23:43) Ecg Monitoring (08/17/17 23:43) Bilateral Bp Monitoring (08/17/17 23:43) Iv Access Insert/Monitor (08/17/17 23:43) Oximetry (08/17/17 23:43) Oxygen Administration (08/17/17 23:43) Nitroglycerin-D5w 50 Mg/250 Ml (Nitrogly (08/17/17 23:45) Sodium Chloride 0.9% Flush (Ns Flush) (08/17/17 23:45) Sodium Chlorid 0.9% 500 Ml Inj (Ns 500 M (08/17/17 23:45) Sodium Chlor 0.9% 1000 Ml Inj (Ns 1000 M (08/17/17 23:45) Digoxin (08/17/17 23:43) Heparin Inj (Heparin Inj) (08/18/17 01:00) Heparin-D5w 25,000 U/250 Ml (Heparin-D5w (08/18/17 01:00) Cbc No Diff, Includes Plts (08/21/17 06:00) Act Partial Throm Time (Ptt) (08/18/17 07:57) Occult Blood (Hemoccult) Stool (08/18/17 00:57) Morphine Inj (Morphine Inj) (08/18/17 01:00) CKMB (08/17/17 23:55) CKMB% (08/17/17 23:55) Admit Order (Ed Use Only) (08/18/17 ) Lineworker / Telemetry [email or web address] (08/18/17 02:33) Activity Bed Rest (08/18/17 02:33) Notify Dr: Other (08/18/17 02:33) Labs Laboratory Tests Test 08/17/17 23:55 White Blood Count 13.4 TH/MM3 Red Blood Count 4.41 MIL/MM3 Hemoglobin 15.3 GM/DL Hematocrit 43.1 % Mean Corpuscular Volume 97.8 FL Mean Corpuscular Hemoglobin 34.7 PG Mean Corpuscular Hemoglobin Concent 35.4 % Red Cell Distribution Width 13.6 % Platelet Count 165 TH/MM3 Mean Platelet Volume 8.7 FL Neutrophils (%) (Auto) 59.1 % Lymphocytes (%) (Auto) 25.8 % Monocytes (%) (Auto) 9.0 % Eosinophils (%) (Auto) 5.6 % Basophils (%) (Auto) 0.5 % Neutrophils # (Auto) 7.9 TH/MM3 Lymphocytes # (Auto) 3.5 TH/MM3 Monocytes # (Auto) 1.2 TH/MM3 Eosinophils # (Auto) 0.7 TH/MM3 Basophils # (Auto) 0.1 TH/MM3 CBC Comment DIFF FINAL Differential Comment Prothrombin Time 10.5 SEC Prothromb Time International Ratio 1.0 RATIO Activated Partial Thromboplast Time 24.3 SEC Blood Urea Nitrogen 22 MG/DL Creatinine 1.19 MG/DL Random Glucose 111 MG/DL Calcium Level 8.5 MG/DL Magnesium Level 1.9 MG/DL Sodium Level 138 MEQ/L Potassium Level 4.2 MEQ/L Chloride Level 106 MEQ/L Carbon Dioxide Level 25.9 MEQ/L Anion Gap 6 MEQ/L Estimat Glomerular Filtration Rate 63 ML/MIN Total Creatine Kinase 127 U/L Creatine Kinase MB 2.8 NG/ML Troponin I 0.39 NG/ML B-Type Natriuretic Peptide 628 PG/ML Digoxin Level LESS THAN 0.1 NG/ML MDM Medical Decision Making Medical Screen Exam Complete: Yes Emergency Medical Condition: Yes Medical Record Reviewed: Yes Interpretation(s) EKG: normal sinus rhythm with no st elevation subendocardial st depression noted Last Impressions Chest X-Ray 08/17/17 1610 Signed Impressions: Service Date/Time: Thursday, August 17, 2017 23:53 - CONCLUSION: 1. No acute finding is identified. 2. Stable emphysema with subpleural interstitial opacities/scar in the inferior left upper lobe. There is blunting of the left costophrenic sulcus which previously was related to mild pleural thickening and small pleural effusion. Patrice Beasley MD CBC & BMP Diagram 08/17/17 23:55 Calcium Level 8.5, Magnesium Level 1.9 Vital Signs Date Time Temp Pulse Resp B/P (MAP) Pulse Ox O2 Delivery O2 Flow Rate FiO2 08/18/17 01:00 78 16 91/55 (67) 98 Room Air 08/18/17 00:12 93 113/80 08/17/17 23:47 17 96 Nasal Cannula 2.00 08/17/17 23:47 96 Nasal Cannula 2.00 08/17/17 23:36 119 15 94 Room Air 08/17/17 23:34 98.9 119 15 116/76 (89) 94 troponin I: 0.39, elevated Differential Diagnosis chest pain, acs, mi, chf, dissection aneurysm Narrative Course placed on environmental monitoring technician, continuous pulse oximeter; received aspirin and sublingual nitroglycerin x 3 by EMS pain 1-08/20 started on nitroglycerin infusion; denies current medicaid specialist administered heparin bolus and heparin infusion troponin I: 0.39, elevated patient is CP free 010 and otherwise asymptomatic call placed to [facility] service --admit to [facility] for nstemi Physician Communication Physician Communication discussed with Dr Gentile --- admit to [facility] Diagnosis Primary Impression: NSTEMI (non-ST elevated myocardial infarction) Admitting Information Admitting Physician Requests: it Ana Roberto MD Aug 17, 2017 23:51
[2017-08-18] VITALS (19 sets, daily range): BP systolic 89–116; BP diastolic 55–74; PULSE 62–96; RESP 16–24; TEMP 97.9–98.5; O2SAT 93–98
[2017-08-18 00:04] LABS: AUTOMATED NEUTROPHIL # 7.9 TH/MM3 (1.8-7.7); BASOPHIL # 0.1 TH/MM3 (0-0.2); BASOPHIL % 0.5 % (0.0-2.0); EOSINOPHIL # 0.7 TH/MM3 (0-0.4); EOSINOPHIL % 5.6 % (0.0-4.0); HEMATOCRIT 43.1 % (39.0-51.0); HEMOGLOBIN 15.3 GM/DL (13.0-17.0); LYMPH % 25.8 % (9.0-44.0); LYMPHOCYTE # 3.5 TH/MM3 (1.0-4.8); MEAN CELL VOLUME 97.8 FL (80.0-100.0); MEAN CORPUSCULAR HEMOGLOBIN 34.7 PG (27.0-34.0); MEAN CORPUSCULAR HGB CONC 35.4 % (32.0-36.0); MEAN PLATELET VOLUME 8.7 FL (7.0-11.0); MONOCYTE # 1.2 TH/MM3 (0-0.9); NEUT % 59.1 % (16.0-70.0); PLATELET COUNT 165 TH/MM3 (150-450); RED BLOOD COUNT 4.41 MIL/MM3 (4.50-5.90); RED CELL DISTRIBUTION WIDTH 13.6 % (11.6-17.2); WHITE BLOOD COUNT 13.4 TH/MM3 (4.0-11.0)
--- NOTE | 2017-08-18 00:09 | RADRPT ---
EXAM DATE/TIME: 08/17/2017 23:53 [facility] COMPARISON: CT PULMONARY ANGIOGRAM, August 23, 2016, 20:18. CHEST PA & LAT, August 24, 2016, 5:35. CHEST SI NGLE AP, August 23, 2016, 13:44. INDICATIONS : Chest pain. MEDICAL HISTORY : Diabetes mellitus type II. Hypertension Chronic obstructive pulmonary disease. SURGICAL HISTORY : Coronary artery stent. CABG. Valve replacement. ENCOUNTER: Initial ACUITY: 1 day PAIN SCORE: 1/10 LOCATION: Bilateral chest FINDINGS: Portable AP view of the chest demonstrates a normal-sized cardiac silhouette post median sternotomy a nd valve replacement. There are chronic changes in the left inferior hemithorax with subpleural inter stitial lung changes and blunting of the left costophrenic sulcus. The findings are similar to the pr ior studies. Right lung demonstrates no acute abnormality. Bones and soft tissues demonstrate no acut e finding. CONCLUSION: 1. No acute finding is identified. 2. Stable emphysema with subpleural interstitial opacities/scar in the inferior left upper lobe. Ther e is blunting of the left costophrenic sulcus which previously was related to mild pleural thickening and small pleural effusion. Patrice Beasley MD on August 18, 2017 at 0:05 Board Certified Radiologist. This report was verified electronically.
[2017-08-18] MEDS: SODIUM CHLOR 0.9% 1000 ML INJ 1,000 ML IV SCH ×4 (00:11→19:45)
[2017-08-18 00:19] LABS: PROTHROMBIN TIME - PATIENT 10.5 SEC (9.8-11.6)
[2017-08-18 00:25] LABS: BICARBONATE 25.9 MEQ/L (21.0-32.0); BLOOD UREA NITROGEN 22 MG/DL (7-18); CALCIUM 8.5 MG/DL (8.5-10.1); CHLORIDE 106 MEQ/L (98-107); CREATININE 1.19 MG/DL (0.60-1.30); GLOMERULAR FILTRATION RATE 63 ML/MIN (>89); GLUCOSE,RANDOM 111 MG/DL (74-106); MAGNESIUM 1.9 MG/DL (1.5-2.5); SODIUM (NA) 138 MEQ/L (136-145)
[2017-08-18] MEDS ORDERED: HEPARIN SODIUM - IV 10,000 UNITS/10 ML VIAL IV PUSH ONE (01:00)
[2017-08-18] MEDS ORDERED: MORPHINE SULFATE 2 MG/ML INJ IV PUSH ONE (01:00)
[2017-08-18 01:02] LABS: DIGOXIN LESS THAN 0.1 NG/ML (0.8-2.0); TROPONIN I 0.39 NG/ML (0.02-0.05)
[2017-08-18] MEDS: HEPARIN-D5W 25,000 U/250 ML 250 ML IV PRN ×2 (02:13→09:49)
[2017-08-18] MEDS ORDERED: SODIUM CHLORIDE 0.9% FLUSH 10 ML FLUSH IV FLUSH PRN (02:45)
[2017-08-18] MEDS ORDERED: DEXTROSE 50% IN WATER 50 ML VIAL(D50) IV PUSH PRN (02:45)
[2017-08-18] MEDS ORDERED: MORPHINE SULFATE 4 MG/ML INJ IV PUSH PRN (02:45)
[2017-08-18] MEDS ORDERED: GLUCAGON 1 MG/ML VIAL OTHER PRN (02:45)
[2017-08-18] MEDS ORDERED: ACETAMINOPHEN 500 MG CPLT PO PRN (02:45)
[2017-08-18] MEDS ORDERED: SODIUM CHLOR 0.9% 1000 ML INJ 1,000 ML IV ONE (03:00)
[2017-08-18] MEDS: RESP: ALBUTEROL 2.5 MG/IPRATROPIUM 0.5 MG NEB (PRN) NEB (04:01)
--- NOTE | 2017-08-18 05:25 | HHI.HP ---
HPI Service [facility] Primary Care Physician Yury Garcia D.O. Admission Diagnosis nstemi Diagnoses: Travel History International Travel<30 Days: No Contact w/Intl Traveler <30 Da: No Traveled to Known Affected Are: No History of Present Illness 57-year-old male with a past medical history significant for CAD status post CABG, atrial fibrillation anticoagulated on Eliquis, hypertension, diabetes mellitus, hyperlipidemia and COPD presents to the emergency department complaining of chest pain. The patient states his chest pain began last night and felt as though an elephant was sitting on his chest. He describes it as substernal and nonradiating. He endorses positive shortness of breath. He has had a cough productive of yellow sputum for approximately 3 weeks. He denies nausea vomiting. Denies fever/chills. Of note, the patient reports he has been out of his medications including his Cardizem and Eliquis for the past 3 days. Review of Systems Except as stated in HPI: all other systems reviewed are Neg Past Family Social History Past Medical History CAD Hypertension Diabetes mellitus Hyperlipidemia COPD Atrial fibrillation anticoagulated on Eliquis Past Surgical History CABG 3 and aVR in 2014 Cardiac catheterization with stent 2 in 2006 Appendectomy Orbital floor repair Reported Medications Reported Meds & Active Scripts Active Eliquis (Apixaban) 5 Mg Tab 5 Mg PO BID Lopressor (Metoprolol Tartrate) 100 Mg Tab 100 Mg PO BID Metformin ER (Metformin HCl) 500 Mg Tab 500 Mg PO DAILY 90 Days Diltiazem HCl (Diltiazem HCl Extended Release) 360 Mg Cap 240 Mg MT DAILY 90 Days Digoxin 0.25 Mg Tab 0.25 Mg PO DAILY Lipitor (Atorvastatin Calcium) 20 Mg Tab 20 Mg PO HS Reported Aspirin Low Dose (Aspirin) 81 Mg Chew 81 Mg CHEW DAILY Allergies: Coded Allergies: No Known Allergies (Verified Allergy, Unknown, 08/17/17) Family History Mother with diabetes mellitus. Father of an [place] at age 59. Social History Smokes approximately one pack per day. Occasional alcohol. Denies illicit drugs. Physical Exam Vital Signs Vital Signs Date Time Temp Pulse Resp B/P (MAP) Pulse Ox O2 Delivery O2 Flow Rate FiO2 2/8/18 03:59 98 Nasal Cannula 2.00 08/18/17 00:12 93 113/80 08/17/17 23:47 17 96 Nasal Cannula 2.00 08/17/17 23:47 96 Nasal Cannula 2.00 08/17/17 23:36 119 15 94 Room Air 08/17/17 23:34 98.9 119 15 116/76 (89) 94 Physical Exam GENERAL: male sitting up in bed SKIN: No rashes, ecchymoses or lesions. Cool and dry. HEAD: Atraumatic. Normocephalic. No temporal or scalp tenderness. EYES: Pupils equal round and reactive. Extraocular motions intact. No scleral icterus. No injection or drainage. ENT: Nose without bleeding, purulent drainage or septal hematoma. Throat without erythema, tonsillar hypertrophy or exudate. Uvula midline. Airway patent. NECK: Trachea midline. No JVD or lymphadenopathy. Supple, nontender, no meningeal signs. CARDIOVASCULAR: Regular rate and rhythm without murmurs, gallops, or rubs. RESPIRATORY: Clear to auscultation. Breath sounds equal bilaterally. No wheezes , rales, or rhonchi. GASTROINTESTINAL: Abdomen soft, non-tender, nondistended. No hepato-splenomegaly , or palpable masses. No guarding. MUSCULOSKELETAL: Extremities without clubbing, cyanosis, or edema. No joint tenderness, effusion, or edema noted. No calf tenderness. NEUROLOGICAL: Awake and alert. Cranial nerves II through XII intact. Motor and sensory grossly within normal limits. Normal speech. Laboratory Laboratory Tests Test 08/17/17 23:55 White Blood Count 13.4 Red Blood Count 4.41 Hemoglobin 15.3 Hematocrit 43.1 Mean Corpuscular Volume 97.8 Mean Corpuscular Hemoglobin 34.7 Mean Corpuscular Hemoglobin Concent 35.4 Red Cell Distribution Width 13.6 Platelet Count 165 Mean Platelet Volume 8.7 Neutrophils (%) (Auto) 59.1 Lymphocytes (%) (Auto) 25.8 Monocytes (%) (Auto) 9.0 Eosinophils (%) (Auto) 5.6 Basophils (%) (Auto) 0.5 Neutrophils # (Auto) 7.9 Lymphocytes # (Auto) 3.5 Monocytes # (Auto) 1.2 Eosinophils # (Auto) 0.7 Basophils # (Auto) 0.1 CBC Comment DIFF FINAL Differential Comment Prothrombin Time 10.5 Prothromb Time International Ratio 1.0 Activated Partial Thromboplast Time 24.3 Blood Urea Nitrogen 22 Creatinine 1.19 Random Glucose 111 Calcium Level 8.5 Magnesium Level 1.9 Sodium Level 138 Potassium Level 4.2 Chloride Level 106 Carbon Dioxide Level 25.9 Anion Gap 6 Estimat Glomerular Filtration Rate 63 Total Creatine Kinase 127 Creatine Kinase MB 2.8 Troponin I 0.39 B-Type Natriuretic Peptide 628 Digoxin Level LESS THAN 0.1 Result Diagram: 08/17/17235408/17/172354 Caprin VTE Risk Assessment [facility] VTE Risk Assessment: No/Low Risk (score <= 1) Caprini Risk Assessment Model Point Value = 1 Point Value = 2 Point Value = 3 Point Value = 5 Age 41-60 Minor surgery BMI > 25 kg/m2 Swollen legs Varicose veins or History of unexplained or recurrent spontaneous Oral contraceptives or hormone replacement Sepsis (< 1 month) Serious lung disease, including pneumonia (< 1 month) Abnormal pulmonary function Acute myocardial infarction Congestive heart failure (< 1 month) History of inflammatory bowel disease Medical patient at bed rest Age 61-74 Arthroscopic surgery Major open surgery (> 45 min) Laparoscopic surgery (> 45 min) Malignancy Confined to bed (> 72 hours) Immobilizing plaster cast Central venous access Age >= 75 History of VTE Family history of VTE Factor V Leiden Prothrombin [id number] Lupus anticoagulant Anticardiolipin antibodies Elevated serum homocysteine Heparin-induced thrombocytopenia Other congenital or acquired thrombophilia Stroke (< 1 month) Elective arthroplasty Hip, pelvis, or leg fracture Acute spinal cord injury (< 1 month) Prophylaxis Regimen Total Risk Factor Score Risk Level Prophylaxis Regimen 0-1 Low Early ambulation 2 Moderate Order ONE of the following: *Sequential Compression Device (SCD) *Heparin 5000 units SQ BID 3-4 Higher Order ONE of the following medications: *Heparin 5000 units SQ TID *Enoxaparin/Lovenox 40 mg SQ daily (WT < 150 kg, CrCl > 30 mL/min) *Enoxaparin/Lovenox 30 mg SQ daily (WT < 150 kg, CrCl > 10-29 mL/min) *Enoxaparin/Lovenox 30 mg SQ BID (WT < 150 kg, CrCl > 30 mL/min) AND/OR *Sequential Compression Device (SCD) 5 or more Highest Order ONE of the following medications: *Heparin 5000 units SQ TID (Preferred with Epidurals) *Enoxaparin/Lovenox 40 mg SQ daily (WT < 150 kg, CrCl > 30 mL/min) *Enoxaparin/Lovenox 30 mg SQ daily (WT < 150 kg, CrCl > 10-29 mL/min) *Enoxaparin/Lovenox 30 mg SQ BID (WT < 150 kg, CrCl > 30 mL/min) AND *Sequential Compression Device (SCD) Assessment and Plan Assessment and Plan Assessment/plan: 1. NSTEMI/chest pain Initial troponin 0.39 EKG significant for sinus tachycardia with ST depression in lateral leads, personally reviewed Heparin drip Nitro drip Aspirin Morphine for pain Cardiology consulted, appreciate recommendations Serial troponin/EKGs 2. Atrial fibrillation Continue home diltiazem, metoprolol Holding Eliquis until cleared by cardiology 3. CAD/CHF/HLD Continue home medications including digoxin 4. Diabetes mellitus Sliding scale insulin Monitor blood glucose 5. COPD DuoNeb's FEN Nothing by mouth Electrolytes: Monitor and replete when necessary Heparin drip Physician Certification 2 Midnight Certification Type: Admission for Inpatient Services Order for Inpatient Services The services are ordered in accordance with Medicare regulations or non- Medicare payer requirements, as applicable. In the case of services not specified as inpatient-only, they are appropriately provided as inpatient services in accordance with the 2-midnight benchmark. Estimated LOS (days): 2 2 days is the estimated time the patient will need to remain in the hospital, assuming treatment plan goals are met and no additional complications. Post-Hospital Plan: Not yet determined Irma Gentile MD Aug 18, 2017 05:25
[2017-08-18] MEDS ORDERED: RESP: ALBUTEROL 2.5 MG/IPRATROPIUM 0.5 MG NEB (PRN) NEB (05:30)
[2017-08-18 06:31] LABS: TROPONIN I 0.84 NG/ML (0.02-0.05)
[2017-08-18] MEDS: INSULIN ASPART SUPPLEMENTAL SCALE SQ SCH ×4 (08:00→21:00)
--- NOTE | 2017-08-18 08:00 | PD.CONS ---
HPI Service cardiology Consult Requested By Reason for Consult NSTEMI Primary Care Physician Yury Garcia D.O. History of Present Illness this is a 57 yo WM with history of CAD, CABG x 3 in 2014 (LOPEZ-LAD, SVG-PDA, SVG - OM1), mechanical AVR, afib (on Eliquis), HTN, COPD and DMII who presents with intermittent exertional chest pain and sob x 3 weeks. Yesterday symptoms became more pronounced, he was seen in his PCP office where HR was ~120bpm and he was directed to the ED for evaluation. 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 Upon evaluation in ED he was tachycardic with HR approx 120 bpm. ECG shows T wave inversion laterally and troponins elevated and increasing. He is now on digoxin and Cardizem with controlled HR in sinus rhythm. no chest pain currently. Review of Systems Consitutional: DENIES: Fatigue, Fever, Chills, Weight gain, Weight loss Respiratory: DENIES: Cough, Snoring, Shortness of breath, Wheezing, Sputum production Cardiovascular: DENIES: Palpitations, Syncope, Tachycardia Gastrointestinal: DENIES: Nausea, Vomiting, Change in bowel habits, Reflux, Bloody stools, Melena Past Family Social History Allergies: Coded Allergies: No Known Allergies (Verified Allergy, Unknown, 08/17/17) Past Medical History CAD Hypertension Diabetes mellitus Hyperlipidemia COPD Atrial fibrillation anticoagulated on Eliquis Past Surgical History CABG 3 and aVR in 2014 Cardiac catheterization with stent 2 in 2006 Appendectomy Orbital floor repair Reported Medications Reported Meds & Active Scripts Active Eliquis (Apixaban) 5 Mg Tab 5 Mg PO BID Lopressor (Metoprolol Tartrate) 100 Mg Tab 100 Mg PO BID Metformin ER (Metformin HCl) 500 Mg Tab 500 Mg PO DAILY 90 Days Diltiazem HCl (Diltiazem HCl Extended Release) 360 Mg Cap 240 Mg MT DAILY 90 Days Digoxin 0.25 Mg Tab 0.25 Mg PO DAILY Lipitor (Atorvastatin Calcium) 20 Mg Tab 20 Mg PO HS Reported Aspirin Low Dose (Aspirin) 81 Mg Chew 81 Mg CHEW DAILY Active Ordered Medications Current Medications Medications (Trade) Dose Ordered Sig/Mitchel Route Start Time Stop Time Status Last Admin Nitroglycerin/ Dextrose 250 ml @ 1.5 mls/hr TITRATE ONCE IV 08/17/17 23:45 2/14/18 22:24 08/18/17 00:12 Sodium Chloride 1,000 ml @ 100 mls/hr Q10H IV 08/17/17 23:45 08/18/17 00:11 Heparin Sodium/ Dextrose 250 ml @ 10 mls/hr TITRATE PRN IV 08/18/17 01:00 08/18/17 02:13 (NS Flush) 2 ml BID IV FLUSH 08/18/17 09:00 (NS Flush) 2 ml UNSCH PRN IV FLUSH 08/18/17 02:45 (Aspirin) 325 mg DAILY PO 08/18/17 09:00 (Tylenol) 500 mg Q4H PRN PO 08/18/17 02:45 (Morphine Inj) 2 mg Q3H PRN IV PUSH 08/18/17 02:45 (D50w (Vial) Inj) 50 ml UNSCH PRN IV PUSH 08/18/17 02:45 (Glucagon Inj) 1 mg UNSCH PRN OTHER 08/18/17 02:45 (NovoLOG SUPPLEMENTAL SCALE) 1 ACHS SLIDING SCALE SQ 08/18/17 08:00 (Duoneb Neb) 1 ampule Q4HR NEB PRN NEB 08/18/17 02:45 08/18/17 04:01 (Lipitor) 20 mg HS PO 08/18/17 21:00 (Lanoxin) 0.25 mg DAILY PO 08/18/17 09:00 (Lopressor) 100 mg BID PO 08/18/17 09:00 (Cardizem Cd) 240 mg DAILY PO 08/18/17 09:00 (Duoneb Neb) 1 ampule Q4HR NEB PRN NEB 08/18/17 05:30 Family History Mother with diabetes mellitus. Father of an [place] at age 59. Social History Smokes approximately one pack per day. Occasional alcohol. Denies illicit drugs. Physical Exam Vital Signs Vital Signs Date Time Temp Pulse Resp B/P (MAP) Pulse Ox O2 Delivery O2 Flow Rate FiO2 08/18/17 07:14 71 18 99/68 (78) 93 08/18/17 05:00 78 16 106/70 (82) 97 Room Air 08/18/17 03:59 98 Nasal Cannula 2.00 08/18/17 03:00 96 16 97/70 (79) 98 Room Air 08/18/17 01:00 78 16 91/55 (67) 98 Room Air 08/18/17 00:12 93 113/80 08/17/17 23:47 17 96 Nasal Cannula 2.00 08/17/17 23:47 96 Nasal Cannula 2.00 08/17/17 23:36 119 15 94 Room Air 08/17/17 23:34 98.9 119 15 116/76 (89) 94 Physical Exam GENERAL: SKIN: Warm and dry. HEAD: Atraumatic. Normocephalic. EYES: Pupils equal and round. No scleral icterus. No injection or drainage. ENT: No nasal bleeding or discharge. NECK: Trachea midline. No JVD. CARDIOVASCULAR: Regular rate and rhythm. no murmurs RESPIRATORY: No accessory muscle use. coarse breath sounds bilaterally GASTROINTESTINAL: Abdomen soft, non-tender, nondistended. MUSCULOSKELETAL: Extremities without clubbing, cyanosis, or edema. No obvious deformities. NEUROLOGICAL: Awake and alert. No obvious cranial nerve deficits. Normal speech. PSYCHIATRIC: Appropriate mood and affect; insight and judgment normal. Laboratory Laboratory Tests Test 08/17/17 23:55 08/18/17 05:30 White Blood Count 13.4 Red Blood Count 4.41 Hemoglobin 15.3 Hematocrit 43.1 Mean Corpuscular Volume 97.8 Mean Corpuscular Hemoglobin 34.7 Mean Corpuscular Hemoglobin Concent 35.4 Red Cell Distribution Width 13.6 Platelet Count 165 Mean Platelet Volume 8.7 Neutrophils (%) (Auto) 59.1 Lymphocytes (%) (Auto) 25.8 Monocytes (%) (Auto) 9.0 Eosinophils (%) (Auto) 5.6 Basophils (%) (Auto) 0.5 Neutrophils # (Auto) 7.9 Lymphocytes # (Auto) 3.5 Monocytes # (Auto) 1.2 Eosinophils # (Auto) 0.7 Basophils # (Auto) 0.1 CBC Comment DIFF FINAL Differential Comment Prothrombin Time 10.5 Prothromb Time International Ratio 1.0 Activated Partial Thromboplast Time 24.3 Blood Urea Nitrogen 22 Creatinine 1.19 Random Glucose 111 Calcium Level 8.5 Magnesium Level 1.9 Sodium Level 138 Potassium Level 4.2 Chloride Level 106 Carbon Dioxide Level 25.9 Anion Gap 6 Estimat Glomerular Filtration Rate 63 Total Creatine Kinase 127 109 Creatine Kinase MB 2.8 Troponin I 0.39 0.84 B-Type Natriuretic Peptide 628 Digoxin Level LESS THAN 0.1 Result Diagram: 08/17/17 2355 08/17/17 2355 Imaging Last 48 hours Impressions Chest X-Ray 08/17/17 2343 Signed Impressions: Service Date/Time: Thursday, August 17, 2017 23:53 - CONCLUSION: 1. No acute finding is identified. 2. Stable emphysema with subpleural interstitial opacities/scar in the inferior left upper lobe. There is blunting of the left costophrenic sulcus which previously was related to mild pleural thickening and small pleural effusion. Patrice Beasley MD Assessment and Plan Problem List: (1) NSTEMI (non-ST elevated myocardial infarction) ICD Codes: I21.4 - Non-ST elevation (NSTEMI) myocardial infarction Status: Acute (2) HTN (hypertension) ICD Codes: I10 - Hypertension Status: Chronic (3) CAD (coronary artery disease) ICD Codes: I25.10 - Coronary artery disease Status: Acute Assessment and Plan this is a 57 yo WM with history of CAD, CABG x 3 in 2014 (LOPEZ-LAD, SVG-PDA, SVG - OM1), mechanical AVR, afib (on Eliquis), HTN, COPD and DMII who presents with intermittent exertional chest pain and sob x 3 weeks. Yesterday symptoms became more pronounced, he was seen in his PCP office where HR was ~120bpm and he was directed to the ED for evaluation. NSTEMI- troponins increasing. patient currently asymptomatic will need cardiac catheterization likely tomorrow. hold Maura Leon Aug 18, 2017 08:00
[2017-08-18] MEDS: SODIUM CHLORIDE 0.9% FLUSH 10 ML FLUSH IV FLUSH SCH ×2 (09:00→21:26)
[2017-08-18] MEDS: DIGOXIN 0.25 MG TAB PO SCH (09:50)
[2017-08-18] MEDS: DILTIAZEM-CD 240 MG CAP ER PO SCH (09:50)
[2017-08-18] MEDS: ASPIRIN 325 MG TAB PO SCH (09:50)
[2017-08-18] MEDS: METOPROLOL TARTRATE 100 MG TAB PO SCH ×2 (09:51→21:25)
[2017-08-18 15:44] LABS: TROPONIN I 1.09 NG/ML (0.02-0.05)
[2017-08-18] MEDS: ATORVASTATIN 20 MG TAB PO SCH (21:25)
[2017-08-19] VITALS (23 sets, daily range): BP systolic 96–107; BP diastolic 60–78; PULSE 66–84; RESP 17–20; TEMP 97.8–98.9; O2SAT 93–98
[2017-08-19] MEDS: HEPARIN-D5W 25,000 U/250 ML 250 ML IV PRN ×2 (01:34→22:54)
[2017-08-19 05:06] LABS: AUTOMATED NEUTROPHIL # 9.7 TH/MM3 (1.8-7.7); BASOPHIL # 0.1 TH/MM3 (0-0.2); BASOPHIL % 0.7 % (0.0-2.0); EOSINOPHIL # 0.6 TH/MM3 (0-0.4); EOSINOPHIL % 4.2 % (0.0-4.0); HEMATOCRIT 40.8 % (39.0-51.0); HEMOGLOBIN 14.3 GM/DL (13.0-17.0); LYMPH % 19.2 % (9.0-44.0); LYMPHOCYTE # 2.7 TH/MM3 (1.0-4.8); MEAN CELL VOLUME 98.4 FL (80.0-100.0); MEAN CORPUSCULAR HEMOGLOBIN 34.4 PG (27.0-34.0); MEAN PLATELET VOLUME 8.7 FL (7.0-11.0); MONO % 7.3 % (0.0-8.0); NEUT % 68.6 % (16.0-70.0); PLATELET COUNT 142 TH/MM3 (150-450); RED BLOOD COUNT 4.15 MIL/MM3 (4.50-5.90); RED CELL DISTRIBUTION WIDTH 13.5 % (11.6-17.2); WHITE BLOOD COUNT 14.2 TH/MM3 (4.0-11.0)
[2017-08-19 05:33] LABS: ALBUMIN 3.2 GM/DL (3.4-5.0); AST (GOT) 20 U/L (15-37); BICARBONATE 26.5 MEQ/L (21.0-32.0); BLOOD UREA NITROGEN 14 MG/DL (7-18); CALCIUM 8.2 MG/DL (8.5-10.1); CHLORIDE 105 MEQ/L (98-107); CREATININE 0.95 MG/DL (0.60-1.30); GLOMERULAR FILTRATION RATE 82 ML/MIN (>89); GLUCOSE,RANDOM 123 MG/DL (74-106); SODIUM (NA) 139 MEQ/L (136-145)
[2017-08-19 05:34] LABS: ALT (GPT) 29 U/L (12-78)
[2017-08-19 05:37] LABS: ALKALINE PHOSPHATASE 73 U/L (45-117); TOTAL BILIRUBIN ADULT 1.5 MG/DL (0.2-1.0); TOTAL PROTEIN 6.2 GM/DL (6.4-8.2)
--- NOTE | 2017-08-19 07:48 | PD.CARD.PN ---
Subjective Subjective Remarks no complaints Objective Medications Current Medications Medications (Trade) Dose Ordered Sig/Mitchel Route Start Time Stop Time Status Last Admin Nitroglycerin/ Dextrose 250 ml @ 1.5 mls/hr TITRATE ONCE IV 08/17/17 23:45 08/24/17 22:24 08/18/17 00:12 Sodium Chloride 1,000 ml @ 100 mls/hr Q10H IV 08/17/17 23:45 08/18/17 19:00 Heparin Sodium/ Dextrose 250 ml @ 10 mls/hr TITRATE PRN IV 08/18/17 01:00 08/19/17 01:34 (NS Flush) 2 ml BID IV FLUSH 08/18/17 09:00 08/18/17 21:26 (NS Flush) 2 ml UNSCH PRN IV FLUSH 08/18/17 02:45 (Aspirin) 325 mg DAILY PO 08/18/17 09:00 08/18/17 09:50 (Tylenol) 500 mg Q4H PRN PO 08/18/17 02:45 (Morphine Inj) 2 mg Q3H PRN IV PUSH 08/18/17 02:45 (D50w (Vial) Inj) 50 ml UNSCH PRN IV PUSH 08/18/17 02:45 (Glucagon Inj) 1 mg UNSCH PRN OTHER 08/18/17 02:45 (NovoLOG SUPPLEMENTAL SCALE) 1 ACHS SLIDING SCALE SQ 08/18/17 08:00 08/18/17 17:00 (Duoneb Neb) 1 ampule Q4HR NEB PRN NEB 08/18/17 02:45 08/18/17 04:01 (Lipitor) 20 mg HS PO 08/18/17 21:00 08/18/17 21:25 (Lanoxin) 0.25 mg DAILY PO 08/18/17 09:00 08/18/17 09:50 (Lopressor) 100 mg BID PO 08/18/17 09:00 08/18/17 21:25 (Cardizem Cd) 240 mg DAILY PO 08/18/17 09:00 08/18/17 09:50 (Duoneb Neb) 1 ampule Q4HR NEB PRN NEB 08/18/17 05:30 Vital Signs / I&O Vital Signs Date Time Temp Pulse Resp B/P (MAP) Pulse Ox O2 Delivery O2 Flow Rate FiO2 08/19/17 07:31 97.8 79 20 104/76 (85) 98 08/19/17 06:00 70 08/19/17 05:00 66 08/19/17 04:00 74 08/19/17 03:06 98.9 68 18 104/60 (75) 97 08/19/17 03:00 69 08/19/17 02:00 66 08/19/17 01:00 66 08/19/17 00:00 98.9 70 20 107/72 (84) 97 08/19/17 00:00 74 08/18/17 23:00 74 08/18/17 22:00 76 08/18/17 21:00 74 18 116/73 (87) 96 08/18/17 21:00 76 08/18/17 20:00 74 08/18/17 20:00 98.5 80 22 90/65 (73) 96 08/18/17 19:00 80 08/18/17 19:00 70 20 95/68 (77) 94 08/18/17 18:00 68 08/18/17 18:00 78 17 102/71 (81) 96 08/18/17 17:00 73 08/18/17 17:00 68 24 104/64 (77) 94 08/18/17 16:00 66 08/18/17 16:00 64 18 89/63 (72) 94 08/18/17 15:00 65 08/18/17 15:00 68 21 97/67 (77) 97 08/18/17 14:00 67 22 95/71 (79) 95 08/18/17 14:00 67 08/18/17 13:00 63 08/18/17 13:00 63 18 96/65 (75) 96 08/18/17 12:30 97.9 69 20 99/74 (82) 97 08/18/17 12:30 69 08/18/17 11:34 08/18/17 11:30 62 17 103/63 (76) 98 08/18/17 08:03 77 18 109/71 (84) 96 Nasal Cannula 2.00 I/O 08/18/17 08/18/17 08/18/17 08/19/17 08/19/17 08/19/17 07:00 15:00 23:00 07:00 15:00 23:00 Intake Total 1775 ml Output Total 1500 ml Balance 275 ml Intake Oral 420 ml IV Total 1355 ml Output Urine Total 1500 ml Physical Exam EYES: No scleral icterus. No injection or drainage. NECK: Supple, trachea midline. No JVD or lymphadenopathy. CARDIOVASCULAR: Regular rate and rhythm without murmurs, gallops, or rubs. RESPIRATORY: Breath sounds equal bilaterally. No accessory muscle use. GASTROINTESTINAL: Abdomen soft, non-tender, nondistended. MUSCULOSKELETAL: No cyanosis, or edema. BACK: Nontender without obvious deformity. No CVA tenderness. Laboratory Laboratory Tests Test 08/18/17 08:35 08/18/17 15:02 08/18/17 21:21 08/19/17 04:43 Activated Partial Thromboplast Time 37.8 SEC 38.5 SEC 35.5 SEC 43.9 SEC Total Creatine Kinase 111 U/L Troponin I 1.09 NG/ML White Blood Count 14.2 TH/MM3 Red Blood Count 4.15 MIL/MM3 Hemoglobin 14.3 GM/DL Hematocrit 40.8 % Mean Corpuscular Volume 98.4 FL Mean Corpuscular Hemoglobin 34.4 PG Mean Corpuscular Hemoglobin Concent 35.0 % Red Cell Distribution Width 13.5 % Platelet Count 142 TH/MM3 Mean Platelet Volume 8.7 FL Neutrophils (%) (Auto) 68.6 % Lymphocytes (%) (Auto) 19.2 % Monocytes (%) (Auto) 7.3 % Eosinophils (%) (Auto) 4.2 % Basophils (%) (Auto) 0.7 % Neutrophils # (Auto) 9.7 TH/MM3 Lymphocytes # (Auto) 2.7 TH/MM3 Monocytes # (Auto) 1.0 TH/MM3 Eosinophils # (Auto) 0.6 TH/MM3 Basophils # (Auto) 0.1 TH/MM3 CBC Comment DIFF FINAL Differential Comment Blood Urea Nitrogen 14 MG/DL Creatinine 0.95 MG/DL Random Glucose 123 MG/DL Total Protein 6.2 GM/DL Albumin 3.2 GM/DL Calcium Level 8.2 MG/DL Alkaline Phosphatase 73 U/L Aspartate Amino Transf (AST/SGOT) 20 U/L Alanine Aminotransferase (ALT/SGPT) 29 U/L Total Bilirubin 1.5 MG/DL Sodium Level 139 MEQ/L Potassium Level 4.3 MEQ/L Chloride Level 105 MEQ/L Carbon Dioxide Level 26.5 MEQ/L Anion Gap 8 MEQ/L Estimat Glomerular Filtration Rate 82 ML/MIN Imaging Last Impressions Chest X-Ray 08/17/17 4823 Signed Impressions: Service Date/Time: Thursday, August 17, 2017 23:53 - CONCLUSION: 1. No acute finding is identified. 2. Stable emphysema with subpleural interstitial opacities/scar in the inferior left upper lobe. There is blunting of the left costophrenic sulcus which previously was related to mild pleural thickening and small pleural effusion. Patrice Beasley MD Assessment and Plan Problem List: (1) NSTEMI (non-ST elevated myocardial infarction) ICD Codes: I21.4 - Non-ST elevation (NSTEMI) myocardial infarction Status: Acute (2) HTN (hypertension) ICD Codes: I10 - Hypertension Status: Chronic (3) CAD (coronary artery disease) ICD Codes: I25.10 - Coronary artery disease Status: Acute Assessment and Plan NSTEMI - h/o CAD CABG NPO [facility] today William Villagran MD Aug 19, 2017 07:48
[2017-08-19] MEDS: INSULIN ASPART SUPPLEMENTAL SCALE SQ SCH ×4 (08:00→21:00)
--- NOTE | 2017-08-19 09:14 | EKG ---
Date Performed: 08/17/2017 Time Performed: 23:30:03 PTAGE: 57 years EKG: SINUS TACHYCARDIA POSSIBLE LEFT ATRIAL ENLARGEMENT MARKED LEFT AXIS DEVIATION ST DEPRESSION , CONSIDER SUBENDOCARDIAL INJURY ABNORMAL ECG Compared to PREVIOUS TRACING , sinus tachycardia has replaced atrial flutter. Anterolateral ST depres sions are new, consider ischemia. PREVIOUS TRACIN08/23/2016 13.36 DOCTOR: Torey Fuentes Interpretating Date/Time 08/19/2017 09:14:15
--- NOTE | 2017-08-19 09:16 | EKG ---
Date Performed: 08/18/2017 Time Performed: 05:34:59 PTAGE: 57 years EKG: Sinus rhythm POSSIBLE LEFT ATRIAL ENLARGEMENT BORDERLINE LEFT AXIS DEVIATION ST DEVIATION AND MODERATE T-WAVE ABN ORMALITY, CONSIDER LATERAL ISCHEMIA ABNORMAL ECG Compared to PREVIOUS TRACING , anterolateral ST changes are more prominent, consider ischemia. PREVIO US TRACING DOCTOR: Torey Fuentes Interpretating Date/Time 08/19/2017 09:14:42
[2017-08-19] MEDS: DIGOXIN 0.25 MG TAB PO SCH (09:28)
[2017-08-19] MEDS: DILTIAZEM-CD 240 MG CAP ER PO SCH (09:28)
[2017-08-19] MEDS: METOPROLOL TARTRATE 100 MG TAB PO SCH ×2 (09:28→20:48)
[2017-08-19] MEDS: ASPIRIN 325 MG TAB PO SCH (09:28)
[2017-08-19] MEDS: SODIUM CHLORIDE 0.9% FLUSH 10 ML FLUSH IV FLUSH SCH ×2 (09:28→20:50)
[2017-08-19] MEDS ORDERED: MIDAZOLAM HCL 2 MG/2 ML VIAL ONE (11:00)
[2017-08-19] MEDS ORDERED: HEPARIN-NS/PF FLUSH BAG 1,000 ML IV FLUSH ONE (11:00)
[2017-08-19] MEDS ORDERED: MIDAZOLAM HCL 2 MG/2 ML VIAL IV ONE (11:27)
[2017-08-19] MEDS ORDERED: ATROPINE SULFATE 1 MG/ML VIAL IV PUSH PRN (12:15)
[2017-08-19] MEDS ORDERED: BACITRACIN OINT 0.9 GM PKT TOP ONE (12:15)
--- NOTE | 2017-08-19 12:19 | CATHPROC ---
Virally HIS Report Study Information Study Number Admission Scheduled Start Study Start [id number] Aug 18 2017 2:34AM 08/19/2017 Aug 19 2017 11:00AM [place] [facility] Cardiac Catheterization Admit Source Facility Department Other [facility] - Section 8 Property Manager Physician and Clinical Staff Initial [address] Mechanical Engineer Oscar Ellis,YONATAN Other cathlab, cathlab Recorder Aguila Watkins RCIS(BS) Scrub Srikanth Lopez,RT(R) Procedures Performed Procedure Location (Site) Vessel Name Angiogram LV Asc. Aorta (A) Coronary Angiograms LCA Left Coronary Coronary Angiograms RCA Right Coronary Coronary Angiograms LOPEZ-LAD Left Coronary Coronary Angiograms Gft. Stump 1 SVG Graft L Heart Cath Equipment Time Tire Builder Heavy Service Description Size Mfg Part Number Used/Scraped TRANSDUCER, TRUWAVE [id number] 11:02 YEAGER SAINZ * Used W/STOCKCOCK *[id number] [id number] *[id number] [id number] *[id number] [id number] *[id number] 11:58 DAIG/ST. JAE MEDICAL ANGIOSEAL, FR6 VIP FR 6 Used *[id number] 11:02 MEDLINE INDUSTRIES PACK, CCL CUSTOM * Used *[id number] 11:02 ethority PACER PEN, SKIN DUAL W/ RULER * Used *[id number] 11:38 MEDTRONIC IM DXTERITY CATHETER FR 5 Used *[id number] 11:22 MEDTRONIC JR 4.0 DXTERITY CATHETER FR 5 Used *[id number] 11:02 [employer] MEDICAL WIRE, 3MMJ .035 180CM 180CM Used *[id number] 11:38 MERIT MEDICAL WIRE, EXCHANGE 260CM 3MMJ 260CM Used *[id number] 11:02 NAMIC MANIFOLD, 4 PORT * Used *[id number] 11:02 NYCOMED OMNIPAQUE, 350 MG, 150ML 150ML [id number] Used 11:53 NYCOMED OMNIPAQUE, 350 MG, 50ML 50ML [id number] Used [id number] 11:02 KO MEDICAL BLANKET,WARM AIR CCL * Used *[id number] 11:02 TERUMO MEDICAL SHEATH, FR5 TERUMO (10CM) FR 5 Used *[id number] Equipment Model, Serial, Lot Number and Expiration Data Description Model Number Serial Number Lot Number Expiration Date IM DXTERITY CATHETER [id number] 11-11-2019 JR 4.0 DXTERITY CATHETER [id number] 04-06-2020 History: Current Medications Medication Dosage/Unit Route Frequency Last Date/Time Taken Statins (any) Beta Radha ASA History: Allergies Allergy Reaction No Known Allergies History: Risk Factors Family History of Hypertension Dyslipidemia Previous TX Previous Heart Failure Premature CAD Yes Yes Yes Yes No Prior Valve Prior PCI Prior PCIDate Prior CABG Prior CABGDate Surgery Yes Yes 07/11/2006 Yes 07/11/2014 Cerebrovascular Peripheral Artery Chronic Lung On Dialysis Diabetes Diabetes Therapy Disease Disease Disease No No No Yes Yes None History: Symptoms/Diagnosis Selection Items Chest pain History: CV Disease Selection Items Known CAD History: Stress Tests Stress or Imaging Studies Performed No History: Other Disease Selection Items CAD HTN History: TX/CV Data Previous Valve Previous Cath Date Previous CABG Date Replacement Date 07/11/2014 07/11/2006 07/11/2014 History: Other Current Smoker Packs a Day Years Used Pack Years No 1 40 40 Labs Hgb (g/dl) Hct (%) WBC (l/cumm) Platelets (thousands) 11.60-17.00 35.00-51.00 4.00-11.00 150.00-450.00 14.3 40.8 14.2 142 Glucose (mg/dl) BUN (mg/dl) Creatinine (mg/dl) BUN:Creatinine (1:x) 74.00-106.00 7.00-18.00 0.50-1.30 10.00-20.00 123 14 0.9 15.6 Na (meq/l) K (meq/l) 136.00-145.00 3.50-5.10 139 4.3 INR (PTT:PT) 0.90-1.10 1 Troponin I (ng/ml) CPK-MB (ng/ML) 0.02-0.05 0.50-3.60 1.09 Not Drawn Medication Medication Total Dose (Bolus/Oral) Medication Total Dosage/Unit 1% XYLOCAINE 20 mL FENTANYL 25 mcg VERSED 1 mg Medications (Bolus/Oral) Medication Time Given Dosage/Unit Administered By Reason VERSED 08/19/2017 11:27:30 AM 1 mg Oscar Ellis 1 mg VERSED given in lab by Oscar Ellis RN in Left Antecubital via Peripheral IV. Ordered by William Villagran. FENTANYL 08/19/2017 11:28:20 AM 25 mcg Oscar Ellis 25 mcg FENTANYL given in lab by Oscar Ellis RN in Left Antecubital via Peripheral IV. Ordered by William Vann. 1% XYLOCAINE 08/19/2017 11:28:25 AM 20 mL William Villagran 20 mL 1% XYLOCAINE given in lab by William Villagran in Right Groin via Subcutaneous. Medication (Drip) Medication Time Given Dosage/Unit Concentration/Unit Diluent (ml) Solution NITROGLYCERIN DRIP 08/19/2017 11:02:24 AM 5 mcg/min 50 mg 250 D5W Patient arrived on 5 mcg/min NITROGLYCERIN DRIP given by angie adams in Right Antecubital via Pe ripheral IV. Pump/Drip Flow = 1.5 ml/hr using D5W with a concentration of 50 mg in 250 ml. Ordered by William Villagran. NITROGLYCERN DRIP 08/19/2017 11:28:06 AM 0 units/hr 0 STOPPED 0 units/hr NITROGLYCERN DRIP STOPPED given in lab by Oscar Ellis RN. Pump/Drip Flow = 0 ml/hr usin g [Solution Name]. Ordered by William Villagran. Initial Case Assessment Cardiovascular HR Rhythm NIBP Chest Pain 83 nsr 122/79 0 Edema Present Skin color Skin None Normal Warm Dry Circulatory - Right Pulses Posterior Tibial Femoral d 3 Scale (0,1,2,3,4,d) Circulatory - Left Pulses Posterior Tibial Femoral d 3 Scale (0,1,2,3,4,d) Neurological State Oriented to time-place- Alert Moves all extremities person Respiration - General Respiration Rate SpO2 (%) (B/min) 15 95 Final Case Assessment Cardiovascular HR Rhythm NIBP Chest Pain 85 nsr 118/76 0 Edema Present Skin color Skin None Normal Warm Dry Circulatory - Right Pulses Posterior Tibial Femoral d 3 Scale (0,1,2,3,4,d) Circulatory - Left Pulses Posterior Tibial Femoral d 3 Scale (0,1,2,3,4,d) Neurological State Oriented to time-place- Alert Moves all extremities person Respiration - General Respiration Rate SpO2 (%) (B/min) 15 95 Chronological Log Time Study Chronological Log 11:00:44 Patient arrived via Bed. 11:00:44 Patient Name, D.O.B, / Armband Verified By R.N. 11:00:45 Consent signed by the physician and the patient and verified by the Section 8 Property Manager staff. 11:00:46 Pre-op and post- op instructions given; patient acknowledges understanding of instructions . 11:00:46 Verbal Stimulation=2 Physical Stimulation=2 Airway=2 Respiration=2 TOTAL=8. (0=absent, 1=l imited, 2=present) 11:00:47 Presedation assessment performed by Section 8 Property Manager RN. 11:00:47 Immediate Presedation assesment performed by physician. 11:00:48 Patient has been NPO for More than 6Hrs. 11:00:49 Skin Breakdown- none per patient 11:00:52 Patient Warmer Placed on the Table. 11:00:53 [place] Prominences Protected 11:00:54 A # 20 IV was noted in the Hand (right). Grade = 0 11:02:23 A # 20 IV was noted in the Antecubital (right). Grade = 0 Patient arrived on 5 mcg/min NITROGLYCERIN DRIP given by cathlab, cathchris in Right Antecubital via Peripheral IV. 11:02:24 Pump/Drip Flow = 1.5 ml/hr using D5W with a concentration of 50 mg in 250 ml. Ordered by William Villagran. 11:02:35 History and physical on the chart or being dictated. Vitals capture started with the following parameters, Patient=Adult, Interval=5 min, Initial P wcveilf=098 mmHg, 11:07:30 Deflation Rate=5 mmHg, Cuff placed on Left Arm Assessment: Initial Case, HR=83 BPM, Rhythm=nsr, OQMP=082/79 mmhg, Chest Pain=0, Edema=None, Co candi=Normal, Skin = Warm, Dry Right Pulses: Post Tib=d, Femoral=3 11:07:31 Left Pulses: Post Tib=d, Femoral=3 Neurological: State=Alert, Ox3, JOHNSON Respiration: Resp=15 B/min, SpO2=95 % 11:07:41 Reference ECG taken 11:07:59 HR=84 bpm, RHDO=050/79 mmhg, SpO2=97 %, Resp=16 B/min, Pain=0, Sandeep=10, Villa=2 11:13:00 HR=77 bpm, BSTI=861/74 mmhg, SpO2=95.0 %, Resp=16 B/min, Pain=0, Sandeep=10, Villa=2 11:14:12 Bilateral groins prepped with 2% chlorhexidine, and draped after a 3 minute waiting time. 11:17:57 HR=76 bpm, FRGO=983/76 mmhg, SpO2=94.0 %, Resp=16 B/min, Pain=0, Sandeep=10, Villa=2 11:18:30 MD paged 11:18:55 MD responded 11:20:21 Pressure channel 1 zeroed. 11:23:00 HR=70 bpm, AVVM=714/71 mmhg, SpO2=92.0 %, Resp=16 B/min, Pain=0, Sandeep=10, Villa=2 11:23:07 MD arrived. 11:23:10 Contrast Scanned 11:23:11 Immediate Presedation assesment performed by physician. Time Out. Correct patient, correct procedure, correct physician, power injector not loaded with contrast with surgical 11:27:22 team present. Time Out Concurred by MD and individual staff in procedure. 11:27:30 Case Start 11::30 1 mg VERSED given in lab by Oscar Ellis RN in Left Antecubital via Peripheral IV. Ordere d by William Villagran. 11:27:59 HR=75 bpm, YZDF=130/70 mmhg, SpO2=90.0 %, Resp=16 B/min, Pain=0, Sandeep=10, Villa=2 0 units/hr NITROGLYCERN DRIP STOPPED given in lab by Oscar Ellis, YONATAN. Pump/Drip Flow = 0 ml/h r using [Solution 11::06 Name]. Ordered by William Villagran. 11::20 25 mcg FENTANYL given in lab by Oscar Ellis RN in Left Antecubital via Peripheral IV. Or dered by William Villagran. ::25 20 mL 1% XYLOCAINE given in lab by William Villagran in Right Groin via Subcutaneous. 11:30:06 Access site was Right Femoral Artery. 11:30:10 A SHEATH, FR5 TERUMO (10CM) FR 5 was advanced into the Fem Art (right) using the Percut[place]o us technique. A JL 4.0 INFINITI CATHETER FR 5 was advanced over a wire. OMNIPAQUE, 350 MG, 150ML 150ML was us ed for 11:30:17 injections. After removing the current catheter a JL 5.0 INFINITI CATHETER FR 5 was advanced over a WIRE, 3 MMJ .035 180CM 11:31:20 180CM. 11:33:00 HR=76 bpm, EKCI=424/71 mmhg, SpO2=91.0 %, Resp=16 B/min, Pain=0, Sandeep=10, Villa=2 Recorded Pressure: Ao, HR=79, Condition=Condition 1 11:33:24 (Aorta) Ao 111/65/84 11:33:32 The LCA was injected and visualized at various angles. OMNIPAQUE, 350 MG, 150ML 150ML used . After removing the current catheter a JR 4.0 DXTERITY CATHETER FR 5 was advanced over a WIRE, 3 MMJ .035 180CM 11:37:22 180CM. 11:38:00 HR=80 bpm, KGOG=953/72 mmhg, SpO2=92.0 %, Resp=16 B/min, Pain=0, Sandeep=10, Villa=2 11:38:43 The RCA was injected and visualized at various angles. OMNIPAQUE, 350 MG, 150ML 150ML used . 11:41:39 The previous wire was exchanged for a WIRE, EXCHANGE 260CM 3MMJ 260CM. After removing the current catheter a IM DXTERITY CATHETER FR 5 was advanced over a WIRE, EXCHA NGE 260CM 11:41:42 3MMJ 260CM. 11:42:18 The LOPEZ-LAD was injected and visualized at various angles. OMNIPAQUE, 350 MG, 150ML 150ML used. After removing the current catheter a MPA-2 INFINITI CATHETER FR 5 was advanced over a WIRE, 3M MJ .035 180CM 11:42:47 180CM. 11:42:59 HR=84 bpm, WCEX=900/76 mmhg, SpO2=92.0 %, Resp=15 B/min, Pain=0, Sandeep=10, Villa=2 11:47:58 HR=79 bpm, KPKA=047/84 mmhg, SpO2=90.0 %, Resp=16 B/min, Pain=0, Sandeep=10, Villa=2 11:48:49 The Gft. Stump 1 was injected and visualized at various angles. OMNIPAQUE, 350 MG, 150ML 15 0ML used. After removing the current catheter a PIGTAIL ANG. INFINITI CATHETER FR 5 was advanced over a W ANGEL, EXCHANGE 11:49:55 260CM 3MMJ 260CM. 11:52:22 The Asc. Aorta (A) was injected at 20 cc/sec for a total of 40. OMNIPAQUE, 350 MG, 50ML 50M L used. 11:53:03 HR=79 bpm, IAZD=017/72 mmhg, SpO2=91.0 %, Resp=15 B/min, Pain=0, Sandeep=10, Villa=2 11:55:43 Catheter was removed 11:56:01 An injection in the Fem Art (right) was made through the SHEATH, FR5 TERUMO (10CM) FR 5. 11:57:39 ANGIOSEAL, FR6 VIP FR 6 placement in the Fem Art (right) 11:58:02 HR=78 bpm, QEYI=975/76 mmhg, SpO2=92.0 %, Resp=20 B/min, Pain=0, Sandeep=10, Villa=2 11:58:57 Case End Assessment: Final Case, HR=85 BPM, Rhythm=nsr, SSCE=512/76 mmhg, Chest Pain=0, Edema=None, [place] r=Normal, Skin = Warm, Dry Right Pulses: Post Tib=d, Femoral=3 11:59:16 Left Pulses: Post Tib=d, Femoral=3 Neurological: State=Alert, Ox3, JOHNSON Respiration: Resp=15 B/min, SpO2=95 % 11:59:32 Catheter(s) removed without difficulty 11:59:36 Sterile dressing applied to site 11:59:36 No case complications noted. 11:59:37 Cine recording checked. 12:00:05 Bedside Report will be given. 12:00:51 Bedside Report will be given. 12:00:53 Contrast Scanned 12:00:54 Verbal Stimulation=2 Physical Stimulation=2 Airway=2 Respiration=2 TOTAL=8. (0=absent, 1=li mited, 2=present) 12:01:01 A Left Heart Cath was performed. 12:03:05 HR=80 bpm, BBXE=284/71 mmhg, SpO2=92.0 %, Resp=20 B/min, Pain=0, Sandeep=10, Villa=2 12:07:49 Patient moved to stretcher 12:07:50 Vitals capture stopped. End Study - Contrast Media Used In Study Contrast Total Opened (mL) Total Used (mL) Total Wasted (mL) Omnipaque 120 120 0 End Study - Maximum Contrast Load Max Contrast Load (mL) 488.9 End Study - Radiation Exposure Fluoro Time (minutes) 8.1 End Study - Patient Disposition Complications Transferred To Interventional Outcome No Telemetry Bed No attempt made
[2017-08-19] MEDS ORDERED: IOHEXOL 350 MG/ML 100 ML BTL (for Cath Lab) OTHER ONE (12:24)
[2017-08-19] MEDS ORDERED: IOHEXOL 350 MG/ML 50 ML BTL (for Cath Lab) OTHER ONE (12:24)
--- NOTE | 2017-08-19 13:24 | MA ---
cc: LORY BAKER DATE 08/19/2017 INDICATION FOR PROCEDURE Non-ST elevation WA. PROCEDURE PERFORMED 1. Fluoroscopy with interpretation. 2. Coronary angiography. 3. Coronary bypass graft angiography. 4. Ascending aortography. METHOD The risks, benefits and alternatives were discussed with the patient. The patient understood and consented to the procedure. The patient was brought into the catheterization lab and positioned on the catheterization table. The right groin was prepped and draped in a sterile fashion. The right groin was anesthetized with 2% lidocaine. The right common femoral was cannulated and a 5 Trin[place], 11 cm sheath was placed without difficulty. The right common femoral artery was closed with an Angio-Seal device. CORONARY ANGIOGRAPHY 1. Left main coronary has mild luminal irregularities. 2. Left anterior descending coronary gives rise to two diagonal branches, both moderate caliber size. At the bifurcation of the first diagonal branch there is an 80% discrete stenosis. Between the two diagonal branches there is also an 80% tubular stenosis. The second diagonal branch has only mild luminal irregularities. The mid left anterior descending coronary beyond the takeoff of the second diagonal branch is occluded. 3. Left circumflex is small and barely visualized. There is a 100% occluded obtuse marginal branch not visualized. 4. Right coronary is a dominant vessel giving rise to a posterior descending branch and a posterolateral branch. The mid to distal right coronary has a 75% tubular stenosis. The posterior descending branch also has a 60% ostial stenosis. The posterolateral branch has mild luminal irregularities. ASCENDING AORTOGRAPHY The ascending aorta is dilated. Neither of the vein bypass grafts were visualized. On fluoroscopy it appears that one of the disks of the aortic valve is not moving correctly. There is 2-3+ aortic insufficiency noted. CORONARY BYPASS GRAFT ANGIOGRAPHY The left internal mammary is selectively engaged with an IM catheter. The left internal mammary is widely patent. The left anterior descending coronary is widely patent. CONCLUSIONS 1. Severe [place] three-vessel coronary artery disease. 2. One of three coronary bypass grafts are patent with the left internal mammary to the left anterior descending coronary artery. 3. Dilated ascending aorta. 4. Mechanical aortic valve which does not appear to be functioning appropriately. 5. Aortic insufficiency. PLAN At this point will hold off doing any consideration for intervention as we need to better investigate the aortic valve itself. He has missed several doses of his anticoagulant prior to presentation. Will get a stat. 2-D echocardiogram. If one of the leaflets is nonfunctional will have to get Dr. Guerrero involved again whether it is a surgical situation or consideration for even left-sided thrombolysis which would be complicated. All in all he also has residual three-vessel coronary disease involving two moderate-sized diagonal branches and the entire posterolateral and posterior descending circulation. MD RAE Elizondo/TYSON /12:05 PM /1:01 PM
--- NOTE | 2017-08-19 14:53 | EKG ---
Date Performed: 08/18/2017 Time Performed: 19:14:38 PTAGE: 57 years EKG: Sinus rhythm Left axis deviation Left ventricular hypertrophy Extensive ST-T changes may be due to hypertrophy an d/or ischemia Since previous tracing, no significant change noted Abnormal ECG PREVIOUS TRACING : 08/18/2017 05.34 DOCTOR: Jodi Olsen Interpretating Date/Time 08/19/2017 14:51:56
--- NOTE | 2017-08-19 15:16 | HHI.PR ---
Subjective Remarks Status post cardiac catheter this morning. Patient shows severe three-vessel disease which have been bypassed previously. One of 3 bypass grafts are patent. Echocardiogram in process and will help determine if there is any thrombus associated with his mechanical valve. Objective Vital Signs Date Time Temp Pulse Resp B/P (MAP) Pulse Ox O2 Delivery O2 Flow Rate FiO2 08/19/17 12:27 98.0 79 18 105/65 (78) 97 08/19/17 10:00 68 08/19/17 09:30 77 102/71 08/19/17 09:00 68 08/19/17 08:00 78 08/19/17 07:31 97.8 79 20 104/76 (85) 98 08/19/17 07:00 67 08/19/17 06:00 70 08/19/17 05:00 66 08/19/17 04:00 74 08/19/17 03:06 98.9 68 18 104/60 (75) 97 08/19/17 03:00 69 08/19/17 02:00 66 08/19/17 01:00 66 08/19/17 00:00 98.9 70 20 107/72 (84) 97 08/19/17 00:00 74 08/18/17 23:00 74 08/18/17 22:00 76 08/18/17 21:00 74 18 116/73 (87) 96 08/18/17 21:00 76 08/18/17 20:00 74 08/18/17 20:00 98.5 80 22 90/65 (73) 96 08/18/17 19:00 80 08/18/17 19:00 70 20 95/68 (77) 94 08/18/17 18:00 68 08/18/17 18:00 78 17 102/71 (81) 96 08/18/17 17:00 73 08/18/17 17:00 68 24 104/64 (77) 94 08/18/17 16:00 66 08/18/17 16:00 64 18 89/63 (72) 94 I/O 08/18/17 08/18/17 08/18/17 08/19/17 08/19/17 08/19/17 06:59 14:59 22:59 06:59 14:59 22:59 Intake Total 1775 ml Output Total 1500 ml Balance 275 ml Intake Oral 420 ml IV Total 1355 ml Output Urine Total 1500 ml Result Diagram: 08/19/1744208/19/17442 Objective Remarks GENERAL: NAD, A&Ox3 HEAD: Normocephalic. NECK: Supple, trachea midline. No lymphadenopathy. EYES: No scleral icterus. No injection or drainage. CARDIOVASCULAR: Regular rate and rhythm without murmurs, gallops, or rubs. RESPIRATORY: Breath sounds equal bilaterally. No accessory muscle use. GASTROINTESTINAL: Abdomen soft, non-tender, nondistended. MUSCULOSKELETAL: No cyanosis, or edema. SKIN: Warm and dry. NEURO: No focal neurological deficitis. A/P Problem List: (1) NSTEMI (non-ST elevated myocardial infarction) ICD Code: I21.4 - Non-ST elevation (NSTEMI) myocardial infarction Status: Acute (2) CAD (coronary artery disease) ICD Code: I25.10 - Coronary artery disease Status: Acute (3) HTN (hypertension) ICD Code: I10 - Hypertension Status: Chronic (4) Paroxysmal atrial fibrillation ICD Code: I48.0 - Paroxysmal atrial fibrillation Status: Acute (5) ACS (acute coronary syndrome) ICD Code: I24.9 - Acute ischemic heart disease, unspecified Status: Acute Assessment and Plan 57-year-old male admitted secondary to chest pain and NSTEMI. NSTEMI Unstable Angina No further chest pain Status post heart catheter today 1 of 3 bypass grafts are patent Severe [place] three-vessel disease Echocardiogram has been ordered for evaluation of mechanical valve Cardiology following Heparin drip Nitro drip Aspirin Morphine for pain Atrial fibrillation Continue diltiazem Continue metoprolol CAD CHF HLD Continue digoxin Continue metoprolol Follow clinically Diabetes mellitus type 2 Follow blood sugars Insulin sliding scale Diabetic diet COPD No exacerbation Continue duo nebs as needed DVT prophylaxis Heparin drip Sotero Cabezas MD Aug 19, 2017 15:16
[2017-08-19] MEDS ORDERED: INSULIN REGULAR (IV INFUSION) 100 UNITS in SODIUM CHLORIDE 0.9% INJ 99 ML IV PRN (15:30)
[2017-08-19] MEDS ORDERED: CEFAZOLIN INJ 500 MG in SODIUM CHLORIDE 0.9% IRR BTL 500 ML IRRIGATION SCH (15:30)
[2017-08-19] MEDS ORDERED: PAPAVERINE INJ 60 MG, NITROGLYCERIN INJ 100 MCG, DILTIAZEM INJ 100 MG in SODIUM CHLORID... IRRIGATION SCH (15:30)
[2017-08-19] MEDS ORDERED: CHLORHEXIDINE GLUCONATE 4% SOLN 120 ML BTL TOPICAL SCH (15:30)
[2017-08-19] MEDS ORDERED: SODIUM CHLORIDE 0.9% FLUSH 10 ML FLUSH IV FLUSH PRN (15:30)
[2017-08-19] MEDS ORDERED: DEXTROSE 50% IN WATER 50 ML VIAL(D50) IV PUSH PRN (15:30)
[2017-08-19] MEDS ORDERED: ceFAZolin 2 GM PREMIX 50 ML IV SCH (15:30)
[2017-08-19] MEDS ORDERED: METOPROLOL TARTRATE 25 MG TAB PO SCH (15:30)
--- NOTE | 2017-08-19 15:43 | ECHRPT ---
Indication: AVR CONCLUSIONS The left ventricular systolic function is normal with an estimated ejection fraction in the range of 55-60%. Normal left ventricular size. Mild concentric left ventricular hypertrophy. No regional wall motion abnormalities are present. Mild thickening of the mitral valve leaflets. Trace mitral valve regurgitation. The aortic prosthesis is not well visualized. Moderate aortic valve regurgitation. Severe prosthetic mechanical aortic valve stenosis which appears to be secondary to restricted mobil ity of one of the valve leaflets, stuck in the closed position. Aortic valve area is 0.49 cm. Aortic valve mean gradient is 63.5 mmHg. There is trace tricuspid valve regurgitation. The estimated pulmonary arterial pressure is 46 mmHg. BP: 102 / 71 HR: 68 Rhythm: MEASUREMENTS (Male / Female) Normal Values Technical Quality: 2D ECHO LV Diastolic Diameter PLAX 5.0 cm 4.2 - 5.9 / 3.9 - 5.3 cm LV Systolic Diameter PLAX 3.8 cm IVS Diastolic Thickness 1.3 cm 0.6 - 1.0 / 0.6 - 0.9 cm LVPW Diastolic Thickness 1.3 cm 0.6 - 1.0 / 0.6 - 0.9 cm LV Relative Wall Thickness 0.5 LVOT Diameter 1.8 cm LA Systolic Diameter LX 4.1 cm 3.0 - 4.0 / 2.7 - 3.8 cm LV Ejection Fraction MOD 4C 50.8 % LV Cardiac Index MOD 4C 1973.6 cm/minm LV Ejection Fraction 4C AL 52.8 % LV Cardiac Index 4C AL 2127.1 cm/minm M-MODE Aortic Root Diameter MM 2.4 cm AV Cusp Separation MM 1.1 cm DOPPLER AV Peak Velocity 561.5 cm/s AV Peak Gradient 126.1 mmHg AV Mean Gradient 63.5 mmHg AV Velocity Time Integral 121.5 cm AI Peak Velocity 289.0 cm/s AI Peak Gradient 33.4 mmHg AI Pressure Half Time 268.5 ms LVOT Peak Velocity 99.3 cm/s LVOT Peak Gradient 3.9 mmHg LVOT Velocity Time Integral 23.2 cm LVOT Cardiac Index 1910.1 cm/minm AV Area Cont Eq vti 0.5 cm AV Area Cont Eq pk 0.5 cm MV Area PHT 5.6 cm Mitral E Point Velocity 112.0 cm/s Mitral A Point Velocity 71.1 cm/s Mitral E to A Ratio 1.6 LV E' Lateral Velocity 6.2 cm/s Mitral E to LV E' Lateral Ratio 17.9 LV E' Septal Velocity 3.6 cm/s Mitral E to LV E' Septal Ratio 31.0 TR Peak Velocity 300.0 cm/s TR Peak Gradient 36.0 mmHg Right Atrial Pressure 10.0 mmHg Pulmonary Artery Systolic Pressu 46.0 mmHg Right Ventricular Systolic Press 46.0 mmHg PV Peak Velocity 81.4 cm/s PV Peak Gradient 2.7 mmHg FINDINGS LEFT VENTRICLE The left ventricular systolic function is normal with an estimated ejection fraction in the range of 55-60%. Normal left ventricular size. Mild concentric left ventricular hypertrophy. No regional wall motion abnormalities are present. RIGHT VENTRICLE Normal right ventricular size and systolic function. LEFT ATRIUM The left atrial size is normal. RIGHT ATRIUM The right atrial size is normal. ATRIAL SEPTUM Normal atrial septal thickness without atrial level shunting by limited color doppler interrogation. AORTA The aortic root and proximal ascending aorta are normal in size on limited imaging. MITRAL VALVE Mild thickening of the mitral valve leaflets. Trace mitral valve regurgitation. AORTIC VALVE The aortic prosthesis is not well visualized. Moderate aortic valve regurgitation. Severe prosthetic mechanical aortic valve stenosis which appears to be secondary to restricted mobil ity of one of the valve leaflets, stuck in the closed position. Aortic valve area is 0.49 cm. Aortic valve mean gradient is 63.5 mmHg. TRICUSPID VALVE Structurally normal tricuspid valve. There is trace tricuspid valve regurgitation. The estimated pulmonary arterial pressure is 46 mmHg. PULMONARY VALVE No pulmonary valve regurgitation or stenosis. VESSELS The inferior vena cava is normal in size. PERICARDIUM No pericardial effusion. William Villagran MD, FACC (Electronically Signed) Final Date:19 August 2017 15:42
--- NOTE | 2017-08-19 17:18 | RADRPT ---
EXAM DATE/TIME: 08/19/2017 16:26 [facility] COMPARISON: US LEG BILATERAL VENOUS DOPPLER, March 19, 2015, 13:07. INDICATIONS : PreOp cardiac surgery. MEDICAL HISTORY : Myocardial infarction. Hypercholesterolemia. Hypertension. Hepatitis. Melanoma. SURGICAL HISTORY : Tonsillectomy. Appendectomy. Coronary artery stent. CABG. Cardiac cath. ENCOUNTER: Subsequent ACUITY: >1 year PAIN SCORE: 0/10 LOCATION: Bilateral legs. TECHNIQUE: Venous ultrasound of the left and right leg was performed from the inguinal ligament to the proximal calf. Real-time, color Doppler and spectral tracing, compression and augmentation techniques were us ed. FINDINGS: RIGHT LEG: There is normal compressibility of the deep venous system from the inguinal region to the proximal ca lf. No echogenic clot is seen in the lumen of the common femoral, femoral, popliteal, and posterior tibial veins. There is a normal response of the venous system to proximal and distal augmentation an d respiration. LEFT LEG: There is normal compressibility of the deep venous system from the inguinal region to the proximal ca lf. No echogenic clot is seen in the lumen of the common femoral, femoral, popliteal, and posterior tibial veins. There is a normal response of the venous system to proximal and distal augmentation an d respiration. CONCLUSION: Negative for deep venous thrombosis. Leoncio Campoverde MD FACR on August 19, 2017 at 17:15 Board Certified Radiologist. This report was verified electronically.
[2017-08-19] MEDS: SODIUM CHLOR 0.9% 1000 ML INJ 1,000 ML IV SCH (17:30)
--- NOTE | 2017-08-19 17:35 | RADRPT ---
EXAM DATE/TIME: 08/19/2017 16:05 [facility] COMPARISON: US CAROTID ARTERIES, September 11, 2015, 15:33. INDICATIONS : PreOp cardiac surgery. MEDICAL HISTORY : Myocardial infarction. Hypercholesterolemia. Hypertension. Hepatitis. Melanoma. SURGICAL HISTORY : Tonsillectomy. Appendectomy. Coronary artery stent. CABG. Cardiac cath. ENCOUNTER: Subsequent ACUITY: > 1 year PAIN SCORE: 0/10 LOCATION: Bilateral neck PEAK SYSTOLIC VELOCITIES (cm/sec): ICA/CCA RATIO: Right: 0.9 Left: 1.0 ICA: Right: 65.1 Left: 65.5 CCA: Right: 74.3 Left: 63.3 ECA: Right: 74.3 Left: 60.3 VERTEBRAL: Right: 65.1 antegrade Left: 44.1 antegrade Elevated flow velocities and ICA/CCA ratios have been found to correlate with increased degrees of vessel stenosis, calculated as percentage of diameter relative to a normal segment of distal ICA/CCA FINDINGS: RIGHT CAROTID: No significant stenosis is visualized. Minimal plaquing in the carotid bulb. The waveforms are within normal limits. LEFT CAROTID: No significant stenosis is visualized. Minimal plaquing at the origin of the internal carotid. The w aveforms are within normal limits. VERTEBRAL ARTERIES: Antegrade flow is seen in both vertebral arteries. MISCELLANEOUS: None. CONCLUSION: 1. Minimal plaquing in both carotid systems. 2. No sonographic or Doppler findings of a hemodynamically significant stenosis. Edvin Guzman MD on August 19, 2017 at 17:32 Board Certified Radiologist. This report was verified electronically.
--- NOTE | 2017-08-19 17:37 | RADRPT ---
EXAM DATE/TIME: 08/19/2017 16:33 [facility] COMPARISON: US VENOUS MAPPING,LOW EXT,BILAT, March 19, 2015, 13:24. INDICATIONS : PreOp cardiac surgery. MEDICAL HISTORY : Myocardial infarction. Hypercholesterolemia. Hypertension. Hepatitis. Melanoma. SURGICAL HISTORY : Tonsillectomy. Appendectomy. Coronary artery stent. CABG. Cardiac cath. ENCOUNTER: Subsequent ACUITY: >1 year PAIN SCORE: 0/10 LOCATION: Bilateral legs. GREATER SAPHENOUS VEIN THIGH: PROXIMAL: Right 8 mm Left 9 mm MID: Right 3 mm Left 2 mm DISTAL: Right 4 mm Left 3 mm CALF: PROXIMAL: Right 2 mm Left Non-visualized MID: Right 2 mm Left Non-visualized DISTAL: Right 2 mm Left Non-visualized FINDINGS: The venous system of the lower extremities are patent by color Doppler imaging. Measurements of the leg veins (in mm) are listed above. CONCLUSION: Venous mapping as above. The below knee greater saphenous vein on the left is not visualized pos sibly representing prior vein harvesting.. Edvin Guzman MD on August 19, 2017 at 17:33 Board Certified Radiologist. This report was verified electronically.
[2017-08-19 18:16] LABS: BILIRUBIN, URINE NEG (NEG); BLOOD, URINE NEG (NEG); GLUCOSE,URINE 70 mg/dL (NEG); KETONE, URINE NEG (NEG); MUCUS URINE FEW /lpf (OCC); NITRITE,URINE NEG (NEG); PH, URINE 6.5 (5.0-8.5); URINE COLOR LIGHT-YELLOW (YELLW/STRAW); URINE LEUKOCYTE ESTERASE NEG (NEG)
[2017-08-19] MEDS: ATORVASTATIN 20 MG TAB PO SCH (20:49)
[2017-08-19] MEDS: MUPIROCIN 2% OINT 1 APPLIC/GM SYR EACH NARE SCH (20:50)
--- NOTE | 2017-08-19 21:48 | RADRPT ---
EXAM DATE/TIME: 08/19/2017 21:30 [facility] COMPARISON: CT PULMONARY ANGIOGRAM, August 23, 2016, 20:18. CHEST SINGLE AP, August 17, 2017, 23:53. INDICATIONS : Short of breath, aneurysm. RADIATION DOSE: 11.32 CTDIvol (mGy) MEDICAL HISTORY : Seizures. Cardiovascular disease Hypertension. Diabetes, Hepatitis, Melanoma. SURGICAL HISTORY : CABG Appendectomy. ENCOUNTER: Initial ACUITY: 1 day PAIN SCALE: 4/10 LOCATION: Bilateral chest TECHNIQUE: Volumetric scanning of the chest was performed. Using automated exposure control and adjustment of t he mA and/or kV according to patient size, radiation dose was kept as low as reasonably achievable to obtain optimal diagnostic quality images. DICOM format image data is available electronically for r eview and comparison. Follow-up recommendations for detected pulmonary nodules are based at a minimum on nodule size and pa tient risk factors according to Fleischner Society Guidelines. FINDINGS: LUNGS: There is central lobar emphysema throughout both lung cano. There is some infiltrate suggestive of atelectasis in both lung bases. There are small bilateral effusions. There is a mild increased inters titial markings bilaterally. PLEURAE: Small bilateral effusions. MEDIASTINUM: The heart and great vessels demonstrate no acute abnormality. There is no mediastinal or hilar lymph adenopathy. There is some mild dilatation of the ascending thoracic aorta measuring 4.5 x 4.4 cm. The descending thoracic aorta at his normal in diameter a 2.3 cm. There is evidence of previous cardioth oracic surgery. AXILLAE: Within normal limits. No lymphadenopathy. MUSCULOSKELETAL: Within normal limits for patient age. MISCELLANEOUS: The visualized upper abdominal organs demonstrate no acute abnormality. CONCLUSION: 1. Bibasilar infiltrates with small bilateral effusions suggestive of atelectasis. 2. Increased interstitial markings bilaterally suggesting some mild pulmonary edema. 3. Central lobar emphysema throughout both lung cano. 4. Mild aneurysmal dilatation of the ascending thoracic aorta measuring 4.5 x 4.4 cm. No significant change compared to the prior study. Vinicio Bethea MD on August 19, 2017 at 21:42 Board Certified Radiologist. This report was verified electronically.
[2017-08-20] VITALS (23 sets, daily range): BP systolic 95–127; BP diastolic 55–79; PULSE 66–104; RESP 18–20; TEMP 98–98.4; O2SAT 92–96
[2017-08-20] MEDS: SODIUM CHLOR 0.9% 1000 ML INJ 1,000 ML IV SCH ×3 (01:45→14:03)
[2017-08-20 03:55] LABS: HEMOGLOBIN 14.6 GM/DL (13.0-17.0); MEAN CELL VOLUME 98.3 FL (80.0-100.0); MEAN CORPUSCULAR HEMOGLOBIN 34.2 PG (27.0-34.0); MEAN CORPUSCULAR HGB CONC 34.8 % (32.0-36.0); MEAN PLATELET VOLUME 8.6 FL (7.0-11.0); PLATELET COUNT 141 TH/MM3 (150-450); RED BLOOD COUNT 4.28 MIL/MM3 (4.50-5.90); RED CELL DISTRIBUTION WIDTH 13.5 % (11.6-17.2); WHITE BLOOD COUNT 14.2 TH/MM3 (4.0-11.0)
[2017-08-20 04:19] LABS: BICARBONATE 26.1 MEQ/L (21.0-32.0); CALCIUM 8.1 MG/DL (8.5-10.1); CREATININE 0.95 MG/DL (0.60-1.30)
[2017-08-20] MEDS: INSULIN ASPART SUPPLEMENTAL SCALE SQ SCH ×4 (08:00→21:00)
--- NOTE | 2017-08-20 08:28 | PD.CARD.PN ---
Subjective Subjective Remarks Feels well. no chest pain or dyspnea. Scheduled for AVR Tuesday Objective Medications Current Medications Medications (Trade) Dose Ordered Sig/Mitchel Route Start Time Stop Time Status Last Admin Sodium Chloride 1,000 ml @ 100 mls/hr Q10H IV 08/17/17 23:45 08/19/17 17:30 (Aspirin) 325 mg DAILY PO 08/18/17 09:00 08/19/17 09:28 (Tylenol) 500 mg Q4H PRN PO 08/18/17 02:45 (Morphine Inj) 2 mg Q3H PRN IV PUSH 08/18/17 02:45 (D50w (Vial) Inj) 50 ml UNSCH PRN IV PUSH 08/18/17 02:45 (Glucagon Inj) 1 mg UNSCH PRN OTHER 08/18/17 02:45 (NovoLOG SUPPLEMENTAL SCALE) 1 ACHS SLIDING SCALE SQ 08/18/17 08:00 08/18/17 17:00 (Duoneb Neb) 1 ampule Q4HR NEB PRN NEB 08/18/17 02:45 08/18/17 04:01 (Lipitor) 20 mg HS PO 08/18/17 21:00 08/19/17 20:49 (Lanoxin) 0.25 mg DAILY PO 08/18/17 09:00 08/19/17 09:28 (Lopressor) 100 mg BID PO 08/18/17 09:00 08/19/17 20:48 (Cardizem Cd) 240 mg DAILY PO 08/18/17 09:00 08/19/17 09:28 (Duoneb Neb) 1 ampule Q4HR NEB PRN NEB 08/18/17 05:30 (Atropine Inj) 0.5 mg UNSCH PRN IV PUSH 08/19/17 12:15 Heparin Sodium/ Dextrose 250 ml @ 10 mls/hr TITRATE PRN IV 08/19/17 13:00 08/19/17 22:54 (NS Flush) 2 ml BID IV FLUSH 08/19/17 21:00 08/19/17 20:50 (NS Flush) 2 ml UNSCH PRN IV FLUSH 08/19/17 15:30 Papaverine HCl 60 mg/Nitroglycerin 100 mcg/Diltiazem HCl 100 mg/Sodium Chloride 100 ml @ 0 mls/hr HORSE RACE STARTER IRRIGATION 08/19/17 15:30 08/26/17 15:29 Cefazolin Sodium 500 mg/Sodium Chloride 505 ml @ 0 mls/hr HORSE [employer] ST[employer]TER IRRIGATION 08/19/17 15:30 08/26/17 15:29 Cefazolin Sodium/ Dextrose 50 ml @ 150 mls/hr HORSE RACE STARTER IV 08/19/17 15:30 08/26/17 15:29 (Lopressor) 12.5 mg HORSE RACE STARTER PO 08/19/17 15:30 08/26/17 15:29 (Bactroban Nasal 2% Oint) 1 applic BID EACH NARE 08/19/17 21:00 08/24/17 20:59 08/19/17 20:50 (Hibiclens 4% Top Soln) 1 applic HORSE RACE STARTER TOPICAL 08/19/17 15:30 08/26/17 15:29 Insulin Human Regular 100 units/ Sodium Chloride 100 ml @ 3 mls/hr TITRATE PRN IV 08/19/17 15:30 08/26/17 15:29 (D50w (Vial) Inj) 50 ml UNSCH PRN IV PUSH 08/19/17 15:30 Vital Signs / I&O Vital Signs Date Time Temp Pulse Resp B/P (MAP) Pulse Ox O2 Delivery O2 Flow Rate FiO2 08/20/17 06:00 78 08/20/17 05:00 76 08/20/17 04:00 82 08/20/17 04:00 Room Air 08/20/17 04:00 98.3 82 18 96/56 (69) 94 08/20/17 03:00 76 08/20/17 02:00 75 08/20/17 01:00 80 08/20/17 00:00 98.0 81 18 95/55 (68) 92 08/20/17 00:00 81 08/20/17 00:00 Room Air 08/19/17 23:00 77 08/19/17 22:00 79 08/19/17 21:00 77 08/19/17 20:00 98.1 74 20 104/78 (87) 94 08/19/17 20:00 74 08/19/17 18:02 77 08/19/17 16:00 80 08/19/17 15:00 98.2 81 17 96/69 (78) 93 08/19/17 15:00 84 08/19/17 14:00 72 08/19/17 13:00 72 08/19/17 12:27 98.0 79 18 105/65 (78) 97 08/19/17 10:00 68 08/19/17 09:30 77 102/71 08/19/17 09:00 68 I/O 08/19/17 08/19/17 08/19/17 08/20/17 08/20/17 08/20/17 07:00 15:00 23:00 07:00 15:00 23:00 Intake Total 1775 ml 720 ml 1590 ml Output Total 1500 ml 1600 ml 1100 ml Balance 275 ml -880 ml 490 ml Intake Oral 420 ml 720 ml 480 ml IV Total 1355 ml 1110 ml Output Urine Total 1500 ml 1600 ml 1100 ml # Bowel Movements 0 Physical Exam RRR Lungs clear Laboratory Laboratory Tests Test 08/19/17 17:25 08/19/17 19:17 08/19/17 21:00 08/20/17 03:39 Urine Color LIGHT-YELLOW Urine Turbidity CLEAR Urine pH 6.5 Urine Specific Leiter 1.022 Urine Protein NEG mg/dL Urine Glucose (UA) 70 mg/dL Urine Ketones NEG mg/dL Urine Occult Blood NEG Urine Nitrite NEG Urine Bilirubin NEG Urine Urobilinogen LESS THAN 2.0 MG/DL Urine Leukocyte Esterase NEG Urine Mucus FEW /lpf Microscopic Urinalysis Comment CULT NOT INDICATED Activated Partial Thromboplast Time 36.8 SEC 35.0 SEC Nasal Screen MRSA (PCR) MRSA NOT DETECTED White Blood Count 14.2 TH/MM3 Red Blood Count 4.28 MIL/MM3 Hemoglobin 14.6 GM/DL Hematocrit 42.0 % Mean Corpuscular Volume 98.3 FL Mean Corpuscular Hemoglobin 34.2 PG Mean Corpuscular Hemoglobin Concent 34.8 % Red Cell Distribution Width 13.5 % Platelet Count 141 TH/MM3 Mean Platelet Volume 8.6 FL Blood Urea Nitrogen 11 MG/DL Creatinine 0.95 MG/DL Random Glucose 108 MG/DL Calcium Level 8.1 MG/DL Sodium Level 139 MEQ/L Potassium Level 4.0 MEQ/L Chloride Level 107 MEQ/L Carbon Dioxide Level 26.1 MEQ/L Anion Gap 6 MEQ/L Estimat Glomerular Filtration Rate 82 ML/MIN Assessment and Plan Problem List: (1) NSTEMI (non-ST elevated myocardial infarction) ICD Codes: I21.4 - Non-ST elevation (NSTEMI) myocardial infarction Status: Acute Plan: Continue heparin. AVR Tuesday (2) HTN (hypertension) ICD Codes: I10 - Hypertension Status: Chronic (3) CAD (coronary artery disease) ICD Codes: I25.10 - Coronary artery disease Status: Acute Doug Angela MD Aug 20, 2017 08:28
[2017-08-20] MEDS: DILTIAZEM-CD 240 MG CAP ER PO SCH (09:25)
[2017-08-20] MEDS: MUPIROCIN 2% OINT 1 APPLIC/GM SYR EACH NARE SCH ×2 (09:25→20:24)
[2017-08-20] MEDS: METOPROLOL TARTRATE 100 MG TAB PO SCH ×2 (09:25→20:24)
[2017-08-20] MEDS: ASPIRIN 325 MG TAB PO SCH (09:25)
[2017-08-20] MEDS: SODIUM CHLORIDE 0.9% FLUSH 10 ML FLUSH IV FLUSH SCH ×2 (09:25→20:23)
[2017-08-20] MEDS: DIGOXIN 0.25 MG TAB PO SCH (09:25)
--- NOTE | 2017-08-20 15:05 | HHI.PR ---
Subjective Remarks Dysfunctional aortic valve. Previous aortic valve replacement. Patient has no complaints of chest pain today. Plan for AVR on 08/23/17. Objective Vital Signs Date Time Temp Pulse Resp B/P (MAP) Pulse Ox O2 Delivery O2 Flow Rate FiO2 08/20/17 06:00 78 08/20/17 05:00 76 08/20/17 04:00 82 08/20/17 04:00 Room Air 08/20/17 04:00 98.3 82 18 96/56 (69) 94 08/20/17 03:00 76 08/20/17 02:00 75 08/20/17 01:00 80 08/20/17 00:00 98.0 81 18 95/55 (68) 92 08/20/17 00:00 81 08/20/17 00:00 Room Air 08/19/17 23:00 77 08/19/17 22:00 79 08/19/17 21:00 77 08/19/17 20:00 98.1 74 20 104/78 (87) 94 08/19/17 20:00 74 08/19/17 18:02 77 08/19/17 16:00 80 I/O 08/19/17 08/19/17 08/19/17 08/20/17 08/20/17 08/20/17 07:00 15:00 23:00 07:00 15:00 23:00 Intake Total 1775 ml 720 ml 1590 ml 1000 ml Output Total 1500 ml 1600 ml 1100 ml Balance 275 ml -880 ml 490 ml 1000 ml Intake Oral 420 ml 720 ml 480 ml IV Total 1355 ml 1110 ml 1000 ml Output Urine Total 1500 ml 1600 ml 1100 ml # Bowel Movements 0 Result Diagram: 08/20/17 0339 08/20/17 0339 Objective Remarks GENERAL: NAD, A&Ox3 HEAD: Normocephalic. NECK: Supple, trachea midline. No lymphadenopathy. EYES: No scleral icterus. No injection or drainage. CARDIOVASCULAR: Regular rate and rhythm without murmurs, gallops, or rubs. RESPIRATORY: Breath sounds equal bilaterally. No accessory muscle use. GASTROINTESTINAL: Abdomen soft, non-tender, nondistended. MUSCULOSKELETAL: No cyanosis, or edema. SKIN: Warm and dry. NEURO: No focal neurological deficitis. A/P Problem List: (1) NSTEMI (non-ST elevated myocardial infarction) ICD Code: I21.4 - Non-ST elevation (NSTEMI) myocardial infarction Status: Acute (2) CAD (coronary artery disease) ICD Code: I25.10 - Coronary artery disease Status: Acute (3) HTN (hypertension) ICD Code: I10 - Hypertension Status: Chronic (4) Paroxysmal atrial fibrillation ICD Code: I48.0 - Paroxysmal atrial fibrillation Status: Acute (5) ACS (acute coronary syndrome) ICD Code: I24.9 - Acute ischemic heart disease, unspecified Status: Acute Assessment and Plan 57-year-old male admitted secondary to chest pain and NSTEMI. Previous aortic valve replacement is failing. Plan to replace aortic valve on 09/20/17. Hold aspirin. NSTEMI Unstable Angina No further chest pain Status post heart catheter today 1 of 3 bypass grafts are patent Severe [place] three-vessel disease Echocardiogram has been ordered for evaluation of mechanical valve Cardiology following Heparin drip Nitro drip Aspirin Morphine for pain Atrial fibrillation Continue diltiazem Continue metoprolol CAD CHF HLD Continue digoxin Continue metoprolol Follow clinically Diabetes mellitus type 2 Follow blood sugars Insulin sliding scale Diabetic diet COPD No exacerbation Continue duo nebs as needed DVT prophylaxis Heparin drip Sotero Cabezas MD Aug 20, 2017 15:05
[2017-08-20] MEDS: ATORVASTATIN 20 MG TAB PO SCH (20:24)
[2017-08-21] VITALS (26 sets, daily range): BP systolic 90–132; BP diastolic 52–70; PULSE 63–86; RESP 18–20; TEMP 97.9–98.5; O2SAT 95–97
[2017-08-21 05:07] LABS: AUTOMATED NEUTROPHIL # 6.7 TH/MM3 (1.8-7.7); BASOPHIL # 0.1 TH/MM3 (0-0.2); BASOPHIL % 1.2 % (0.0-2.0); EOSINOPHIL # 0.5 TH/MM3 (0-0.4); EOSINOPHIL % 5.1 % (0.0-4.0); HEMATOCRIT 43.4 % (39.0-51.0); LYMPH % 20.7 % (9.0-44.0); LYMPHOCYTE # 2.1 TH/MM3 (1.0-4.8); MEAN CELL VOLUME 98.6 FL (80.0-100.0); MEAN CORPUSCULAR HEMOGLOBIN 33.9 PG (27.0-34.0); MEAN CORPUSCULAR HGB CONC 34.4 % (32.0-36.0); MEAN PLATELET VOLUME 8.8 FL (7.0-11.0); MONO % 8.1 % (0.0-8.0); MONOCYTE # 0.8 TH/MM3 (0-0.9); NEUT % 64.9 % (16.0-70.0); PLATELET COUNT 153 TH/MM3 (150-450); RED CELL DISTRIBUTION WIDTH 13.9 % (11.6-17.2); WHITE BLOOD COUNT 10.3 TH/MM3 (4.0-11.0)
[2017-08-21 05:33] LABS: ALBUMIN 3.2 GM/DL (3.4-5.0); ALT (GPT) 20 U/L (12-78); AST (GOT) 18 U/L (15-37); BICARBONATE 26.4 MEQ/L (21.0-32.0); BLOOD UREA NITROGEN 15 MG/DL (7-18); CALCIUM 8.5 MG/DL (8.5-10.1); CREATININE 0.96 MG/DL (0.60-1.30); GLOMERULAR FILTRATION RATE 81 ML/MIN (>89); GLUCOSE,RANDOM 106 MG/DL (74-106)
[2017-08-21 06:35] LABS: ALKALINE PHOSPHATASE 79 U/L (45-117); CHLORIDE 106 MEQ/L (98-107); SODIUM (NA) 139 MEQ/L (136-145); TOTAL PROTEIN 6.6 GM/DL (6.4-8.2)
[2017-08-21] MEDS: INSULIN ASPART SUPPLEMENTAL SCALE SQ SCH ×4 (08:00→20:30)
[2017-08-21] MEDS: SODIUM CHLOR 0.9% 1000 ML INJ 1,000 ML IV SCH ×2 (08:42→17:45)
[2017-08-21] MEDS: MUPIROCIN 2% OINT 1 APPLIC/GM SYR EACH NARE SCH ×2 (08:42→20:29)
[2017-08-21] MEDS: DIGOXIN 0.25 MG TAB PO SCH (08:43)
[2017-08-21] MEDS: SODIUM CHLORIDE 0.9% FLUSH 10 ML FLUSH IV FLUSH SCH ×2 (08:43→20:29)
[2017-08-21] MEDS: DILTIAZEM-CD 240 MG CAP ER PO SCH (08:43)
[2017-08-21] MEDS: METOPROLOL TARTRATE 100 MG TAB PO SCH ×2 (08:43→20:29)
--- NOTE | 2017-08-21 10:04 | HHI.PR ---
Subjective Remarks No complaints from the patient today, no chest pain, no dyspnea, no presyncope/ syncope. Dysfunctional aortic valve is present. History of Previous aortic valve replacement. Plan for AVR on 08/23/17. Objective Vital Signs Date Time Temp Pulse Resp B/P (MAP) Pulse Ox O2 Delivery O2 Flow Rate FiO2 08/21/17 06:00 71 08/21/17 05:00 69 08/21/17 04:00 98.4 66 18 90/52 (65) 97 08/21/17 04:00 Room Air 08/21/17 04:00 66 08/21/17 03:00 69 08/21/17 02:00 77 08/21/17 01:00 72 08/21/17 00:00 Room Air 08/21/17 00:00 98.2 78 20 132/70 (90) 97 08/21/17 00:00 78 08/20/17 23:00 72 08/20/17 22:00 70 08/20/17 21:00 72 08/20/17 20:00 Room Air 08/20/17 20:00 67 08/20/17 20:00 98.1 67 20 127/69 (88) 96 08/20/17 18:00 78 08/20/17 17:00 76 08/20/17 16:00 68 08/20/17 16:00 98.4 68 18 118/79 (92) 95 08/20/17 15:00 66 08/20/17 14:00 67 08/20/17 13:00 76 08/20/17 12:00 74 08/20/17 12:00 98.1 74 18 117/74 (88) 94 08/20/17 11:00 76 I/O 08/20/17 08/20/17 08/20/17 08/21/17 08/21/17 08/21/17 07:00 15:00 23:00 07:00 15:00 23:00 Intake Total 1590 ml 1000 ml 350 ml 1620 ml Output Total 1100 ml 1250 ml 1800 ml Balance 490 ml 1000 ml -900 ml -180 ml Intake Oral 480 ml 350 ml 480 ml IV Total 1110 ml 1000 ml 1140 ml Output Urine Total 1100 ml 1250 ml 1800 ml # Bowel Movements 0 0 Result Diagram: 08/21/17 04508/21/17 0450 Objective Remarks GENERAL: NAD, A&Ox3 HEAD: Normocephalic. NECK: Supple, trachea midline. No lymphadenopathy. EYES: No scleral icterus. No injection or drainage. CARDIOVASCULAR: Regular rate and rhythm without murmurs, gallops, or rubs. RESPIRATORY: Breath sounds equal bilaterally. No accessory muscle use. GASTROINTESTINAL: Abdomen soft, non-tender, nondistended. MUSCULOSKELETAL: No cyanosis, or edema. SKIN: Warm and dry. NEURO: No focal neurological deficitis. A/P Problem List: (1) NSTEMI (non-ST elevated myocardial infarction) ICD Code: I21.4 - Non-ST elevation (NSTEMI) myocardial infarction Status: Acute (2) CAD (coronary artery disease) ICD Code: I25.10 - Coronary artery disease Status: Acute (3) HTN (hypertension) ICD Code: I10 - Hypertension Status: Chronic (4) Paroxysmal atrial fibrillation ICD Code: I48.0 - Paroxysmal atrial fibrillation Status: Acute (5) ACS (acute coronary syndrome) ICD Code: I24.9 - Acute ischemic heart disease, unspecified Status: Acute Assessment and Plan 57-year-old male admitted secondary to chest pain and NSTEMI. Previous aortic valve replacement is failing. Plan to replace aortic valve on 09/20/17. Holding aspirin. Labs reviewed. Hemoglobin stable. No electrolyte disturbance. Continue to monitor labs. Labs ordered for further monitoring. NSTEMI Unstable Angina No further chest pain Status post heart catheter today 1 of 3 bypass grafts are patent Severe [place] three-vessel disease Echocardiogram has been ordered for evaluation of mechanical valve Cardiology following Heparin drip Nitro drip Aspirin Morphine for pain Atrial fibrillation Continue diltiazem Continue metoprolol CAD CHF HLD Continue digoxin Continue metoprolol Follow clinically Diabetes mellitus type 2 Follow blood sugars Insulin sliding scale Diabetic diet COPD No exacerbation Continue duo nebs as needed DVT prophylaxis Heparin drip Sotero Cabezas MD Aug 21, 2017 10:04
[2017-08-21] MEDS: HEPARIN-D5W 25,000 U/250 ML 250 ML IV PRN (11:26)
[2017-08-21] MEDS: RESP: ALBUTEROL 2.5 MG/IPRATROPIUM 0.5 MG NEB (PRN) NEB (15:55)
[2017-08-21] MEDS: ATORVASTATIN 20 MG TAB PO SCH (20:29)
[2017-08-22] VITALS (14 sets, daily range): BP systolic 96–130; BP diastolic 53–78; PULSE 55–85; RESP 16–20; TEMP 97.7–98.5; O2SAT 95–99
[2017-08-22] MEDS: SODIUM CHLOR 0.9% 1000 ML INJ 1,000 ML IV SCH ×2 (03:45→15:39)
[2017-08-22] MEDS: HEPARIN-D5W 25,000 U/250 ML 250 ML IV PRN ×2 (05:41→21:45)
[2017-08-22 06:45] LABS: HEMATOCRIT 43.8 % (39.0-51.0); HEMOGLOBIN 15.1 GM/DL (13.0-17.0); MEAN CELL VOLUME 97.9 FL (80.0-100.0); MEAN CORPUSCULAR HEMOGLOBIN 33.7 PG (27.0-34.0); MEAN CORPUSCULAR HGB CONC 34.4 % (32.0-36.0); MEAN PLATELET VOLUME 9.2 FL (7.0-11.0); PLATELET COUNT 166 TH/MM3 (150-450); RED BLOOD COUNT 4.47 MIL/MM3 (4.50-5.90); RED CELL DISTRIBUTION WIDTH 13.7 % (11.6-17.2); WHITE BLOOD COUNT 12.4 TH/MM3 (4.0-11.0)
[2017-08-22 06:49] LABS: BICARBONATE 27.5 MEQ/L (21.0-32.0); CALCIUM 8.9 MG/DL (8.5-10.1); CREATININE 0.98 MG/DL (0.60-1.30)
--- NOTE | 2017-08-22 08:17 | PD.CARD.PN ---
Subjective Subjective Remarks admits to chronic non-productive cough. no chest pain or sob overnight. scheduled for AVR tomorrow. Objective Medications Current Medications Medications (Trade) Dose Ordered Sig/Mitchel Route Start Time Stop Time Status Last Admin Sodium Chloride 1,000 ml @ 100 mls/hr Q10H IV 08/17/17 23:45 08/21/17 17:45 (Aspirin) 325 mg DAILY PO 08/18/17 09:00 Future Hold 08/20/17 09:25 (Tylenol) 500 mg Q4H PRN PO 08/18/17 02:45 (Morphine Inj) 2 mg Q3H PRN IV PUSH 08/18/17 02:45 (D50w (Vial) Inj) 50 ml UNSCH PRN IV PUSH 08/18/17 02:45 (Glucagon Inj) 1 mg UNSCH PRN OTHER 08/18/17 02:45 (NovoLOG SUPPLEMENTAL SCALE) 1 ACHS SLIDING SCALE SQ 08/18/17 08:00 08/21/17 12:00 (Duoneb Neb) 1 ampule Q4HR NEB PRN NEB 08/18/17 02:45 08/21/17 15:55 (Lipitor) 20 mg HS PO 08/18/17 21:00 08/21/17 20:29 (Lanoxin) 0.25 mg DAILY PO 08/18/17 09:00 08/21/17 08:43 (Lopressor) 100 mg BID PO 08/18/17 09:00 08/21/17 20:29 (Cardizem Cd) 240 mg DAILY PO 08/18/17 09:00 08/21/17 08:43 (Duoneb Neb) 1 ampule Q4HR NEB PRN NEB 08/18/17 05:30 (Atropine Inj) 0.5 mg UNSCH PRN IV PUSH 08/19/17 12:15 Heparin Sodium/ Dextrose 250 ml @ 10 mls/hr TITRATE PRN IV 08/19/17 13:00 08/22/17 05:41 (NS Flush) 2 ml BID IV FLUSH 08/19/17 21:00 08/21/17 20:29 (NS Flush) 2 ml UNSCH PRN IV FLUSH 08/19/17 15:30 Papaverine HCl 60 mg/Nitroglycerin 100 mcg/Diltiazem HCl 100 mg/Sodium Chloride 100 ml @ 0 mls/hr NURSING SERVICES MANAGER IRRIGATION 08/19/17 15:30 08/26/17 15:29 Cefazolin Sodium 500 mg/Sodium Chloride 505 ml @ 0 mls/hr NURSING SERVICES MANAGER IRRIGATION 08/19/17 15:30 08/26/17 15:29 Cefazolin Sodium/ Dextrose 50 ml @ 150 mls/hr NURSING SERVICES MANAGER IV 08/19/17 15:30 08/26/17 15:29 (Lopressor) 12.5 mg NURSING SERVICES MANAGER PO 08/19/17 15:30 08/26/17 15:29 (Bactroban Nasal 2% Oint) 1 applic BID EACH NARE 08/19/17 21:00 08/24/17 20:59 08/21/17 20:29 (Hibiclens 4% Top Soln) 1 applic NURSING SERVICES MANAGER TOPICAL 08/19/17 15:30 08/26/17 15:29 Insulin Human Regular 100 units/ Sodium Chloride 100 ml @ 3 mls/hr TITRATE PRN IV 08/19/17 15:30 08/26/17 15:29 (D50w (Vial) Inj) 50 ml UNSCH PRN IV PUSH 08/19/17 15:30 Vital Signs / I&O Vital Signs Date Time Temp Pulse Resp B/P (MAP) Pulse Ox O2 Delivery O2 Flow Rate FiO2 08/22/17 04:00 Room Air 08/22/17 04:00 98.3 70 18 96/53 (67) 96 08/22/17 04:00 70 08/22/17 03:00 68 08/22/17 02:00 65 08/22/17 01:00 69 08/22/17 00:00 98.1 66 20 115/64 (81) 98 08/22/17 00:00 Room Air 08/22/17 00:00 66 08/21/17 23:00 68 08/21/17 22:00 63 08/21/17 21:00 66 08/21/17 20:00 98.4 67 20 107/65 (79) 97 08/21/17 20:00 Room Air 08/21/17 20:00 67 08/21/17 18:00 66 08/21/17 17:00 66 08/21/17 16:00 78 08/21/17 15:46 97.9 65 19 101/63 (76) 97 08/21/17 15:00 81 08/21/17 14:00 76 08/21/17 13:00 70 08/21/17 12:00 66 08/21/17 11:25 98.5 69 19 99/64 (76) 95 08/21/17 11:00 75 08/21/17 10:00 64 08/21/17 09:00 86 I/O 08/21/17 08/21/17 08/21/17 08/22/17 08/22/17 08/22/17 07:00 15:00 23:00 07:00 15:00 23:00 Intake Total 1620 ml 2000 ml 480 ml Output Total 1800 ml 1254 ml 1300 ml Balance -180 ml 746 ml -820 ml Intake Oral 480 ml 1200 ml 480 ml IV Total 1140 ml 800 ml Output Urine Total 1800 ml 1254 ml 1300 ml # Bowel Movements 0 0 Physical Exam GENERAL: SKIN: Warm and dry. HEAD: Atraumatic. Normocephalic. EYES: Pupils equal and round. No scleral icterus. No injection or drainage. ENT: No nasal bleeding or discharge. NECK: Trachea midline. No JVD. CARDIOVASCULAR: Regular rate and rhythm. II/ systolic murmur RESPIRATORY: No accessory muscle use. decreased breath sounds to bilateral bases GASTROINTESTINAL: Abdomen soft, non-tender, nondistended. MUSCULOSKELETAL: Extremities without clubbing, cyanosis, or edema. No obvious deformities. NEUROLOGICAL: Awake and alert. No obvious cranial nerve deficits. Normal speech. PSYCHIATRIC: Appropriate mood and affect; insight and judgment normal. Laboratory Laboratory Tests Test 08/21/17 12:10 08/22/17 05:17 08/22/17 05:47 Activated Partial Thromboplast Time 46.2 SEC 57.6 SEC White Blood Count 12.4 TH/MM3 Red Blood Count 4.47 MIL/MM3 Hemoglobin 15.1 GM/DL Hematocrit 43.8 % Mean Corpuscular Volume 97.9 FL Mean Corpuscular Hemoglobin 33.7 PG Mean Corpuscular Hemoglobin Concent 34.4 % Red Cell Distribution Width 13.7 % Platelet Count 166 TH/MM3 Mean Platelet Volume 9.2 FL Blood Urea Nitrogen 12 MG/DL Creatinine 0.98 MG/DL Random Glucose 105 MG/DL Calcium Level 8.9 MG/DL Sodium Level 139 MEQ/L Potassium Level 3.9 MEQ/L Chloride Level 105 MEQ/L Carbon Dioxide Level 27.5 MEQ/L Anion Gap 7 MEQ/L Estimat Glomerular Filtration Rate 79 ML/MIN Assessment and Plan Problem List: (1) NSTEMI (non-ST elevated myocardial infarction) ICD Codes: I21.4 - Non-ST elevation (NSTEMI) myocardial infarction Status: Acute (2) HTN (hypertension) ICD Codes: I10 - Hypertension Status: Chronic (3) CAD (coronary artery disease) ICD Codes: I25.10 - Coronary artery disease Status: Acute Assessment and Plan 57 yo WM with CAD, CABG x 3 in 2014 (LOPEZ-LAD, SVG-PDA, SVG- OM1), mechanical AVR, afib, HTN, COPD and DMII who presented with progressive exertional chest pain and found to have NSTEMI. CAD- cardiac catheterization revealed severe 3 vessel disease, 1/3 grafts patent echo confirms malfunctioning mechanical aortic valve with one valve stuck in closed position. consider intervention once valve is replaced. - s/p mechanical valve. RAHAT= 0.49cm2, mean gradient= 63mmHg plan for AVR tomorrow 08/23/17 Maura Nelson Aug 22, 2017 08:17
--- NOTE | 2017-08-22 08:49 | HHI.PR ---
Subjective Remarks in no acute distress. denies chest pain or sob. no new complaints. Objective Vitals Vital Signs Date Time Temp Pulse Resp B/P (MAP) Pulse Ox O2 Delivery O2 Flow Rate FiO2 08/22/17 04:00 Room Air 08/22/17 04:00 98.3 70 18 96/53 (67) 96 08/22/17 04:00 70 08/22/17 03:00 68 08/22/17 02:00 65 08/22/17 01:00 69 08/22/17 00:00 98.1 66 20 115/64 (81) 98 08/22/17 00:00 Room Air 08/22/17 00:00 66 08/21/17 23:00 68 08/21/17 22:00 63 08/21/17 21:00 66 08/21/17 20:00 98.4 67 20 107/65 (79) 97 08/21/17 20:00 Room Air 08/21/17 20:00 67 08/21/17 18:00 66 08/21/17 17:00 66 08/21/17 16:00 78 08/21/17 15:46 97.9 65 19 101/63 (76) 97 08/21/17 15:00 81 08/21/17 14:00 76 08/21/17 13:00 70 08/21/17 12:00 66 08/21/17 11:25 98.5 69 19 99/64 (76) 95 08/21/17 11:00 75 08/21/17 10:00 64 08/21/17 09:00 86 I/O 08/21/17 08/21/17 08/21/17 08/22/17 08/22/17 08/22/17 07:00 15:00 23:00 07:00 15:00 23:00 Intake Total 1620 ml 2000 ml 480 ml Output Total 1800 ml 1254 ml 1300 ml Balance -180 ml 746 ml -820 ml Intake Oral 480 ml 1200 ml 480 ml IV Total 1140 ml 800 ml Output Urine Total 1800 ml 1254 ml 1300 ml # Bowel Movements 0 0 Result Diagram: 08/22/17 0547 08/22/17 0547 Imaging Last Impressions Lower Extremity Ultrasound 08/19/17 0000 Signed Impressions: Service Date/Time: Saturday, August 19, 2017 16:33 - CONCLUSION: Venous mapping as above. The below knee greater saphenous vein on the left is not visualized possibly representing prior vein harvesting.. Edvin Guzman MD Chest CT 08/19/17 0000 Signed Impressions: Service Date/Time: Saturday, August 19, 2017 21:30 - CONCLUSION: 1. Bibasilar infiltrates with small bilateral effusions suggestive of atelectasis. 2. Increased interstitial markings bilaterally suggesting some mild pulmonary edema. 3. Central lobar emphysema throughout both lung cano. 4. Mild aneurysmal dilatation of the ascending thoracic aorta measuring 4.5 x 4.4 cm. No significant change compared to the prior study. Vinicio Bethea MD Carotid Artery Ultrasound 08/19/17 0000 Signed Impressions: Service Date/Time: Saturday, August 19, 2017 16:05 - CONCLUSION: 1. Minimal plaquing in both carotid systems. 2. No sonographic or Doppler findings of a hemodynamically significant stenosis. Edvin Guzman MD Chest X-Ray 08/17/17 2343 Signed Impressions: Service Date/Time: Thursday, August 17, 2017 23:53 - CONCLUSION: 1. No acute finding is identified. 2. Stable emphysema with subpleural interstitial opacities/scar in the inferior left upper lobe. There is blunting of the left costophrenic sulcus which previously was related to mild pleural thickening and small pleural effusion. Patrice Beasley MD Objective Remarks GENERAL: This is a well-nourished, well-developed patient, in no apparent distress. CARDIOVASCULAR: Regular rate and regular rhythm without murmurs, gallops, or rubs. RESPIRATORY: Clear to auscultation. Breath sounds equal bilaterally. No wheezes , rales, or rhonchi. GASTROINTESTINAL: Abdomen soft, non-tender, nondistended. Normal, active bowel sounds MUSCULOSKELETAL: Extremities without clubbing, cyanosis, or edema. NEURO: Alert & Oriented x4 to person, place, time, situation. Moves all ext x4 Medications and IVs Inpatient Medications Acetaminophen (Tylenol) 500 mg Q4H PRN PO HEADACHE; Start 08/18/17 at 02:45 Albuterol/ Ipratropium (Duoneb Neb) 1 ampule Q4HR NEB PRN NEB SOB/Wheezing; Start 08/18/17 at 05:30 Aspirin (Aspirin) 325 mg DAILY PO Last administered on 08/20/17at 09:25; Start 08/18/17 at 09:00; Status Future Hold Atorvastatin Calcium (Lipitor) 20 mg HS PO Last administered on 08/21/17at 20:29 ; Start 08/18/17 at 21:00 Atropine Sulfate (Atropine Inj) 0.5 mg UNSCH PRN IV PUSH VAGAL REPONSE; Start 08/19/17 at 12:15 Bacitracin (Bacitracin Oint Packet) 0.9 gm ONCE ONCE TOP Last administered on 08/19/17at 12:15; Start 08/19/17 at 12:15; Stop 08/19/17 at 12:16; Status DC Cefazolin Sodium 500 mg/Sodium Chloride 505 ml @ 0 mls/hr CURBER IRRIGATION ; Start 08/19/17 at 15:30; Stop 08/26/17 at 15:29 Cefazolin Sodium/ Dextrose 50 ml @ 150 mls/hr CURBER IV ; Start 08/19/17 at 15 :30; Stop 08/26/17 at 15:29 Chlorhexidine Gluconate (Hibiclens 4% Top Soln) 1 applic CURBER TOPICAL ; Start 08/19/17 at 15:30; Stop 08/26/17 at 15:29 Dextrose (D50w (Vial) Inj) 50 ml UNSCH PRN IV PUSH HYPOGLYCEMIA-SEE COMMENTS; Start 08/19/17 at 15:30 Digoxin (Lanoxin) 0.25 mg DAILY PO Last administered on 08/21/17at 08:43; Start 08/18/17 at 09:00 Diltiazem HCl (Cardizem Cd) 240 mg DAILY PO Last administered on 08/21/17at 08: 43; Start 08/18/17 at 09:00 Fentanyl Citrate (fentaNYL INJ) 50 mcg ONCE ONCE IV Last administered on at 11:28; Start 08/19/17 at 11:28; Stop 08/19/17 at 14:57; Status DC Glucagon (Glucagon Inj) 1 mg UNSCH PRN OTHER HYPOGLYCEMIA-SEE COMMENTS; Start 08/18/17 at 02:45 Heparin Sodium (Porcine) (Heparin Inj) 4,000 units ONCE ONCE IV PUSH Last administered on 08/18/17at 02:12; Start 08/18/17 at 01:00; Stop 08/18/17 at 01:01; Status DC Heparin Sodium/ Dextrose 250 ml @ 10 mls/hr TITRATE PRN IV Coagulation Management Last administered on 08/22/17at 05:41; Start 08/19/17 at 13:00 Insulin Aspart (NovoLOG SUPPLEMENTAL SCALE) 1 ACHS SLIDING SCALE SQ Last administered on 08/21/17at 12:00; Start 08/18/17 at 08:00 Insulin Human Regular 100 units/ Sodium Chloride 100 ml @ 3 mls/hr TITRATE PRN IV for blood glucose control; Start 08/19/17 at 15:30; Stop 08/26/17 at 15:29 Metoprolol Tartrate (Lopressor) 12.5 mg CURBER PO ; Start 08/19/17 at 15:30; Stop 08/26/17 at 15:29 Midazolam HCl (Versed Inj) 1 mg ONCE ONCE IV Last administered on 08/19/17at 11: 27; Start 08/19/17 at 11:27; Stop 08/19/17 at 14:55; Status DC Morphine Sulfate (Morphine Inj) 2 mg Q3H PRN IV PUSH PAIN SCALE 6 TO 10; Start 08/18/17 at 02:45 Mupirocin (Bactroban Nasal 2% Oint) 1 applic BID EACH NARE Last administered on 08/21/17at 20:29; Start 08/19/17 at 21:00; Stop 08/24/17 at 20:59 Nitroglycerin/ Dextrose 250 ml @ 1.5 mls/hr TITRATE ONCE IV Last administered on 08/18/17at 00:12; Start 08/17/17 at 23:45; Stop 08/19/17 at 17:45; Status DC Papaverine HCl 60 mg/Nitroglycerin 100 mcg/Diltiazem HCl 100 mg/Sodium Chloride 100 ml @ 0 mls/hr CURBER IRRIGATION ; Start 08/19/17 at 15:30; Stop 08/26/17 at 15:29 Sodium Chloride (NS Flush) 2 ml UNSCH PRN IV FLUSH FLUSH AFTER USING IV ACCESS ; Start 08/19/17 at 15:30 A/P Assessment and Plan NSTEMI Unstable Angina No further chest pain Status post heart catheter;1 of 3 bypass grafts are patent/Severe [place] three- vessel disease Echocardiogram with 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 Cardiology following Atrial fibrillation Continue diltiazem Continue metoprolol CAD CHF HLD Continue digoxin Continue metoprolol Follow clinically Diabetes mellitus type 2 Follow blood sugars Insulin sliding scale Diabetic diet COPD No exacerbation Continue duo nebs as needed DVT prophylaxis Heparin drip Discharge Planning Ct surgery consulted. James Beckham MD Aug 22, 2017 08:49
[2017-08-22] MEDS: METOPROLOL TARTRATE 100 MG TAB PO SCH ×2 (09:02→21:46)
[2017-08-22] MEDS: MUPIROCIN 2% OINT 1 APPLIC/GM SYR EACH NARE SCH ×2 (09:03→21:00)
[2017-08-22] MEDS: DILTIAZEM-CD 240 MG CAP ER PO SCH (09:03)
[2017-08-22] MEDS: SODIUM CHLORIDE 0.9% FLUSH 10 ML FLUSH IV FLUSH SCH ×2 (09:03→21:47)
[2017-08-22] MEDS: DIGOXIN 0.25 MG TAB PO SCH (09:03)
[2017-08-22] MEDS: INSULIN ASPART SUPPLEMENTAL SCALE SQ SCH ×4 (09:04→21:00)
--- NOTE | 2017-08-22 10:00 | PD.CONS ---
History of Present Illness Service CT Surgery Consult Requested By Dr. Villagran Reason for Consult Prosthetic valve malfunction with likely partial thrombosis, NSTEMI, aortic insufficiency, CAD Primary Care Physician Yury Garcia D.O. Diagnoses: (1) Aortic valve insufficiency (2) Prosthetic valve malfunction (3) CAD (coronary artery disease) (4) NSTEMI (non-ST elevated myocardial infarction) (5) S/P AVR (aortic valve replacement) History of Present Illness 57-year-old male with a past medical history significant for CAD status post AVR /CABG with a [address] [place] mechanical valve, atrial fibrillation anticoagulated on Eliquis, hypertension, diabetes mellitus, hyperlipidemia and COPD presents to the emergency department complaining of chest pain. The patient states his chest pain began last night and felt as though an elephant was sitting on his chest. He describes it as substernal and nonradiating. He endorses positive shortness of breath. He has had a cough productive of yellow sputum for approximately 3 weeks. He denies nausea vomiting. Denies fever/chills. Of note, the patient reports he has been out of his medications including his Cardizem and Eliquis for the past 3 days. He has been non-compliant with anticoagulation with resulting prosthetic valve malfunction requiring high-risk REDO sternotomy and REDO AVR/CABG. He also continues to smoke 1ppd cigarettes Review of Systems Constitutional: COMPLAINS OF: Fatigue, DENIES: Diaphoretic episodes, Fever, Weight gain, Weight loss, Chills, Dizziness, Change in appetite, Night Sweats Endocrine: DENIES: Heat/cold intolerance, Polydipsia, Polyuria, Polyphagia Eyes: DENIES: Blurred vision, Diplopia, Eye inflammation, Eye pain, Vision loss , Photosensitivity, Double Vision Ears, nose, mouth, throat: DENIES: Tinnitus, Hearing loss, Vertigo, Nasal discharge, Oral lesions, Throat pain, Hoarseness, Ear Pain, Running Nose, Epistaxis, Sinus Pain, Toothache, Odynophagia Respiratory: DENIES: Apneas, Cough, Snoring, Wheezing, Hemoptysis, Sputum production, Shortness of breath Cardiovascular: COMPLAINS OF: Chest pain, DENIES: Palpitations, Syncope, Dyspnea on Exertion, PND, Lower Extremity Edema, Orthopnea, Claudication Gastrointestinal: DENIES: Abdominal pain, Black stools, Bloody stools, Constipation, Diarrhea, Nausea, Vomiting, Difficulty Swallowing, Anorexia Genitourinary: DENIES: Sexual dysfunction, Urinary frequency, Urinary incontinence, Urgency, Hematuria, Dysuria, Nocturia, Penile Discharge, Testicular Pain, Testicular Swelling Musculoskeletal: DENIES: Joint pain, Muscle aches, Stiffness, Joint Swelling, Back pain, Neck pain Integumentary: DENIES: Abnormal pigmentation, Nail changes, Pruritus, Rash Hematologic/lymphatic: DENIES: Bruising, Lymphadenopathy Immunologic/allergic: DENIES: Eczema, Urticaria Neurologic: DENIES: Abnormal gait, Headache, Localized weakness, Paresthesias, Seizures, Speech Problems, Tremor, Poor Balance Psychiatric: DENIES: Anxiety, Confusion, Mood changes, Depression, Hallucinations, Agitation, Suicidal Ideation, Homicidal Ideation, Delusions Past Family Social History Allergies: Coded Allergies: No Known Allergies (Verified Allergy, Unknown, 08/17/17) Past Medical History Past Medical History CAD Hypertension Diabetes mellitus Hyperlipidemia COPD Atrial fibrillation anticoagulated on Eliquis Past Surgical History CABG 3 and aVR in 2014 Cardiac catheterization with stent 2 in 2006 Appendectomy Orbital floor repair Reported Medications Reported Meds & Active Scripts Active Eliquis (Apixaban) 5 Mg Tab 5 Mg PO BID Lopressor (Metoprolol Tartrate) 100 Mg Tab 100 Mg PO BID Metformin ER (Metformin HCl) 500 Mg Tab 500 Mg PO DAILY 90 Days Diltiazem HCl (Diltiazem HCl Extended Release) 360 Mg Cap 240 Mg MT DAILY 90 Days Digoxin 0.25 Mg Tab 0.25 Mg PO DAILY Lipitor (Atorvastatin Calcium) 20 Mg Tab 20 Mg PO HS Reported Aspirin Low Dose (Aspirin) 81 Mg Chew 81 Mg CHEW DAILY Family History Mother with diabetes mellitus. Father of an NC at age 59. Social History Smokes approximately one pack per day. Occasional alcohol. Denies illicit drugs. Physical Exam Vital Signs Vital Signs Date Time Temp Pulse Resp B/P (MAP) Pulse Ox O2 Delivery O2 Flow Rate FiO2 08/22/17 04:00 Room Air 08/22/17 04:00 98.3 70 18 96/53 (67) 96 08/22/17 04:00 70 08/22/17 03:00 68 08/22/17 02:00 65 08/22/17 01:00 69 08/22/17 00:00 98.1 66 20 115/64 (81) 98 08/22/17 00:00 Room Air 08/22/17 00:00 66 08/21/17 23:00 68 08/21/17 22:00 63 08/21/17 21:00 66 08/21/17 20:00 98.4 67 20 107/65 (79) 97 08/21/17 20:00 Room Air 08/21/17 20:00 67 08/21/17 18:00 66 08/21/17 17:00 66 08/21/17 16:00 78 08/21/17 15:46 97.9 65 19 101/63 (76) 97 08/21/17 15:00 81 08/21/17 14:00 76 08/21/17 13:00 70 08/21/17 12:00 66 08/21/17 11:25 98.5 69 19 99/64 (76) 95 08/21/17 11:00 75 Physical Exam GENERAL: This is a well-nourished, well-developed patient, in no apparent distress. SKIN: No rashes, ecchymoses or lesions. Cool and dry. HEAD: Atraumatic. Normocephalic. No temporal or scalp tenderness. EYES: Pupils equal round and reactive. Extraocular motions intact. No scleral icterus. No injection or drainage. ENT: Nose without bleeding, purulent drainage or septal hematoma. Throat without erythema, tonsillar hypertrophy or exudate. Uvula midline. Airway patent. NECK: Trachea midline. No JVD or lymphadenopathy. Supple, nontender, no meningeal signs. CARDIOVASCULAR: Regular rate and rhythm without murmurs, gallops, or rubs. well- healed sternotomy RESPIRATORY: Clear to auscultation. Breath sounds equal bilaterally. No wheezes , rales, or rhonchi. GASTROINTESTINAL: Abdomen soft, non-tender, nondistended. No hepato-splenomegaly , or palpable masses. No guarding. MUSCULOSKELETAL: Extremities without clubbing, cyanosis, or edema. No joint tenderness, effusion, or edema noted. No calf tenderness. Negative Homans sign bilaterally. NEUROLOGICAL: Awake and alert. Cranial nerves II through XII intact. Motor and sensory grossly within normal limits. Five out of 5 muscle strength in all muscle groups. Normal speech. Laboratory Laboratory Tests Test 08/21/17 12:10 08/22/17 05:17 08/22/17 05:47 Activated Partial Thromboplast Time 46.2 57.6 White Blood Count 12.4 Red Blood Count 4.47 Hemoglobin 15.1 Hematocrit 43.8 Mean Corpuscular Volume 97.9 Mean Corpuscular Hemoglobin 33.7 Mean Corpuscular Hemoglobin Concent 34.4 Red Cell Distribution Width 13.7 Platelet Count 166 Mean Platelet Volume 9.2 Blood Urea Nitrogen 12 Creatinine 0.98 Random Glucose 105 Calcium Level 8.9 Sodium Level 139 Potassium Level 3.9 Chloride Level 105 Carbon Dioxide Level 27.5 Anion Gap 7 Estimat Glomerular Filtration Rate 79 Result Diagram: 08/22/17 0547 08/22/17 0547 Imaging Last Impressions Lower Extremity Ultrasound 08/19/17 0000 Signed Impressions: Service Date/Time: Saturday, August 19, 2017 16:33 - CONCLUSION: Venous mapping as above. The below knee greater saphenous vein on the left is not visualized possibly representing prior vein harvesting.. Edvin Guzman MD Chest CT 08/19/17 0000 Signed Impressions: Service Date/Time: Saturday, August 19, 2017 21:30 - CONCLUSION: 1. Bibasilar infiltrates with small bilateral effusions suggestive of atelectasis. 2. Increased interstitial markings bilaterally suggesting some mild pulmonary edema. 3. Central lobar emphysema throughout both lung cano. 4. Mild aneurysmal dilatation of the ascending thoracic aorta measuring 4.5 x 4.4 cm. No significant change compared to the prior study. Vinicio Bethea MD Carotid Artery Ultrasound 08/19/17 0000 Signed Impressions: Service Date/Time: Saturday, August 19, 2017 16:05 - CONCLUSION: 1. Minimal plaquing in both carotid systems. 2. No sonographic or Doppler findings of a hemodynamically significant stenosis. Edvin Guzman MD Chest X-Ray 08/17/17 2343 Signed Impressions: Service Date/Time: Thursday, August 17, 2017 23:53 - CONCLUSION: 1. No acute finding is identified. 2. Stable emphysema with subpleural interstitial opacities/scar in the inferior left upper lobe. There is blunting of the left costophrenic sulcus which previously was related to mild pleural thickening and small pleural effusion. Patrice Beasley MD Course Patient was admitted due to his NSTEMI and aortic valve malfunction for consideration of REDO AVR/CABG. Assessment and Plan Problem List: (1) S/P CABG x 3 ICD Codes: Z95.1 - Status post three vessel coronary artery bypass Status: Acute (2) S/P AVR (aortic valve replacement) ICD Codes: Z95.2 - Status post aortic valve replacement Status: Acute (3) Prosthetic valve malfunction ICD Codes: T82.01XA - Breakdown (mechanical) of heart valve prosthesis, initial encounter (4) Aortic valve insufficiency ICD Codes: I35.1 - Nonrheumatic aortic (valve) insufficiency (5) CAD (coronary artery disease) ICD Codes: I25.10 - Coronary artery disease Status: Acute (6) NSTEMI (non-ST elevated myocardial infarction) ICD Codes: I21.4 - Non-ST elevation (NSTEMI) myocardial infarction Status: Acute (7) Tobacco abuse ICD Codes: Z72.0 - Tobacco use Status: Chronic Plan: He has been strongly counselled to cease using tobacco, and his overall prognosis is not good with this h/o non-compliance. Assessment and Plan 57y/o non-compliant male with NSTEMI and prosthetic valve dysfunction. He has occluded vein grafts to the PDA and OM. The OM vessel was poor to start with, so no attempt will be made to bypass this vessel. He will need REDO AVR and I will look at the PDA to see if there is an opportunity for REDO bypass to that artery. He is not a candidate for mechanical valve replacement based on his non -compliance. Risks and benefits of REDO AVR/CABG discussed and he agrees to proceed. STS risk as follows: Risk Model and Variables - STS Adult Cardiac Surgery Database Version 2.81 RISK SCORES About the STS Risk Calculator Procedure: AV Replacement + CAB Risk of Mortality: 6.016% Morbidity or Mortality: 33.136% Long Length of Stay: 15.099% Short Length of Stay: 19.504% Permanent Stroke: 1.823% Prolonged Ventilation: 26.434% DSW Infection: 0.988% Renal Failure: 7.191% Reoperation: 12.073% Problem Qualifiers (1) Aortic valve insufficiency: Qualified Codes: I35.1 - Nonrheumatic aortic (valve) insufficiency (2) Prosthetic valve malfunction: Qualified Codes: T82.01XA - Breakdown (mechanical) of heart valve prosthesis, initial encounter (3) CAD (coronary artery disease): Qualified Codes: I25.110 - Atherosclerotic heart disease of [place] coronary artery with unstable angina pectoris Annalee Guerrero MD Aug 22, 2017 10:00
[2017-08-22] MEDS: ASPIRIN 81 MG CHEW TAB CHEW SCH (10:40)
--- NOTE | 2017-08-22 13:49 | PD.CAR.PN ---
CVT Progress Note Subjective/Hospital Course: Stable over the weekend. Denies chest pain or dyspnea. Objective: Vital Signs Date Time Temp Pulse Resp B/P (MAP) Pulse Ox O2 Delivery O2 Flow Rate FiO2 08/22/17 13:38 62 08/22/17 10:00 69 08/22/17 08:00 98.0 78 20 117/64 (81) 95 08/22/17 08:00 95 Room Air 08/22/17 07:48 69 08/22/17 04:00 Room Air 08/22/17 04:00 98.3 70 18 96/53 (67) 96 08/22/17 04:00 70 08/22/17 03:00 68 08/22/17 02:00 65 08/22/17 01:00 69 08/22/17 00:00 98.1 66 20 115/64 (81) 98 08/22/17 00:00 Room Air 08/22/17 00:00 66 08/21/17 23:00 68 08/21/17 22:00 63 08/21/17 21:00 66 08/21/17 20:00 98.4 67 20 107/65 (79) 97 08/21/17 20:00 Room Air 08/21/17 20:00 67 08/21/17 18:00 66 08/21/17 17:00 66 08/21/17 16:00 78 08/21/17 15:46 97.9 65 19 101/63 (76) 97 08/21/17 15:00 81 08/21/17 14:00 76 Labs: Laboratory Tests Test 08/22/17 05:17 08/22/17 05:47 Activated Partial Thromboplast Time 57.6 SEC (24.3-30.1) White Blood Count 12.4 TH/MM3 (4.0-11.0) Red Blood Count 4.47 MIL/MM3 (4.50-5.90) Hemoglobin 15.1 GM/DL (13.0-17.0) Hematocrit 43.8 % (39.0-51.0) Mean Corpuscular Volume 97.9 FL (80.0-100.0) Mean Corpuscular Hemoglobin 33.7 PG (27.0-34.0) Mean Corpuscular Hemoglobin Concent 34.4 % (32.0-36.0) Red Cell Distribution Width 13.7 % (11.6-17.2) Platelet Count 166 TH/MM3 (150-450) Mean Platelet Volume 9.2 FL (7.0-11.0) Blood Urea Nitrogen 12 MG/DL (7-18) Creatinine 0.98 MG/DL (0.60-1.30) Random Glucose 105 MG/DL (74-106) Calcium Level 8.9 MG/DL (8.5-10.1) Sodium Level 139 MEQ/L (136-145) Potassium Level 3.9 MEQ/L (3.5-5.1) Chloride Level 105 MEQ/L (98-107) Carbon Dioxide Level 27.5 MEQ/L (21.0-32.0) Anion Gap 7 MEQ/L (5-15) Estimat Glomerular Filtration Rate 79 ML/MIN (>89) Result Diagram: 08/22/17 0547 08/22/17 0547 Imaging: Last Impressions Lower Extremity Ultrasound 08/19/17 0000 Signed Impressions: Service Date/Time: Saturday, August 19, 2017 16:33 - CONCLUSION: Venous mapping as above. The below knee greater saphenous vein on the left is not visualized possibly representing prior vein harvesting.. Edvin Guzman MD Chest CT 08/19/17 0000 Signed Impressions: Service Date/Time: Saturday, August 19, 2017 21:30 - CONCLUSION: 1. Bibasilar infiltrates with small bilateral effusions suggestive of atelectasis. 2. Increased interstitial markings bilaterally suggesting some mild pulmonary edema. 3. Central lobar emphysema throughout both lung cano. 4. Mild aneurysmal dilatation of the ascending thoracic aorta measuring 4.5 x 4.4 cm. No significant change compared to the prior study. Vinicio Bethea MD Carotid Artery Ultrasound 08/19/17 0000 Signed Impressions: Service Date/Time: Saturday, August 19, 2017 16:05 - CONCLUSION: 1. Minimal plaquing in both carotid systems. 2. No sonographic or Doppler findings of a hemodynamically significant stenosis. Edvin Guzman MD Chest X-Ray 08/17/17 2516 Signed Impressions: Service Date/Time: Thursday, August 17, 2017 23:53 - CONCLUSION: 1. No acute finding is identified. 2. Stable emphysema with subpleural interstitial opacities/scar in the inferior left upper lobe. There is blunting of the left costophrenic sulcus which previously was related to mild pleural thickening and small pleural effusion. Patrice Beasley MD Plan: Patient for REDO AVR/CABG. Will have to reschedule surgery for Tuesday, 729 due to OR availability issue. Patient is aware of this and will be scheduled for 08/24/17. (1) NSTEMI (non-ST elevated myocardial infarction) Plan: Continue heparin. AVR Tuesday (2) HTN (hypertension) (3) CAD (coronary artery disease) Problem Qualifiers (1) CAD (coronary artery disease): Qualified Codes: I25.110 - Atherosclerotic heart disease of [place] coronary artery with unstable angina pectoris Annalee Guerrero MD Aug 22, 2017 13:49
[2017-08-22] MEDS: ATORVASTATIN 20 MG TAB PO SCH (21:47)
[2017-08-23] VITALS (23 sets, daily range): BP systolic 105–128; BP diastolic 56–72; PULSE 54–78; RESP 16–18; TEMP 97.3–98.4; O2SAT 96–99
[2017-08-23] MEDS: INSULIN ASPART SUPPLEMENTAL SCALE SQ SCH ×4 (07:55→21:00)
--- NOTE | 2017-08-23 08:04 | HHI.PR ---
Subjective Remarks in no acute distress. denies chest pain or sob. no new complaints. Objective Vitals Vital Signs Date Time Temp Pulse Resp B/P (MAP) Pulse Ox O2 Delivery O2 Flow Rate FiO2 08/23/17 07:44 96 Room Air 08/23/17 07:44 98.4 57 18 118/72 (87) 96 08/23/17 02:00 72 08/23/17 01:00 75 08/23/17 00:00 72 08/22/17 23:00 55 08/22/17 23:00 98.5 55 16 126/72 (90) 99 08/22/17 22:00 66 08/22/17 21:00 97 Room Air 08/22/17 21:00 68 08/22/17 21:00 98.2 68 18 130/78 (95) 97 08/22/17 17:00 97 Room Air 08/22/17 16:00 85 08/22/17 16:00 98.1 85 20 118/65 (82) 97 08/22/17 13:38 62 08/22/17 12:00 97.7 65 18 121/71 (88) 95 08/22/17 10:00 69 I/O 08/22/17 08/22/17 08/22/17 08/23/17 08/23/17 08/23/17 07:00 15:00 23:00 07:00 15:00 23:00 Intake Total 480 ml 250 ml Output Total 1300 ml 650 ml Balance -820 ml -650 ml 250 ml Intake Oral 480 ml IV Total 250 ml Output Urine Total 1300 ml 650 ml # Bowel Movements 0 1 Result Diagram: 08/22/17 0547 08/22/17 0547 Imaging Last Impressions Lower Extremity Ultrasound 08/19/17 0000 Signed Impressions: Service Date/Time: Saturday, August 19, 2017 16:33 - CONCLUSION: Venous mapping as above. The below knee greater saphenous vein on the left is not visualized possibly representing prior vein harvesting.. Edvin Guzman MD Chest CT 08/19/17 0000 Signed Impressions: Service Date/Time: Saturday, August 19, 2017 21:30 - CONCLUSION: 1. Bibasilar infiltrates with small bilateral effusions suggestive of atelectasis. 2. Increased interstitial markings bilaterally suggesting some mild pulmonary edema. 3. Central lobar emphysema throughout both lung cano. 4. Mild aneurysmal dilatation of the ascending thoracic aorta measuring 4.5 x 4.4 cm. No significant change compared to the prior study. Vinicio Bethea MD Carotid Artery Ultrasound 08/19/17 0000 Signed Impressions: Service Date/Time: Saturday, August 19, 2017 16:05 - CONCLUSION: 1. Minimal plaquing in both carotid systems. 2. No sonographic or Doppler findings of a hemodynamically significant stenosis. Edvin Guzman MD Chest X-Ray 08/17/17 2343 Signed Impressions: Service Date/Time: Thursday, August 17, 2017 23:53 - CONCLUSION: 1. No acute finding is identified. 2. Stable emphysema with subpleural interstitial opacities/scar in the inferior left upper lobe. There is blunting of the left costophrenic sulcus which previously was related to mild pleural thickening and small pleural effusion. Patrice Beasley MD Objective Remarks GENERAL: This is a well-nourished, well-developed patient, in no apparent distress. CARDIOVASCULAR: Regular rate and regular rhythm without murmurs, gallops, or rubs. RESPIRATORY: Clear to auscultation. Breath sounds equal bilaterally. No wheezes , rales, or rhonchi. GASTROINTESTINAL: Abdomen soft, non-tender, nondistended. Normal, active bowel sounds MUSCULOSKELETAL: Extremities without clubbing, cyanosis, or edema. NEURO: Alert & Oriented x4 to person, place, time, situation. Moves all ext x4 Procedures cardiac cath. Medications and IVs Inpatient Medications Acetaminophen (Tylenol) 500 mg Q4H PRN PO HEADACHE; Start 08/18/17 at 02:45 Albuterol/ Ipratropium (Duoneb Neb) 1 ampule Q4HR NEB PRN NEB SOB/Wheezing; Start 08/18/17 at 05:30 Aspirin (Aspirin Chew) 81 mg DAILY CHEW Last administered on 08/22/17at 10:40; Start 08/22/17 at 10:15 Aspirin (Aspirin) 325 mg DAILY PO Last administered on 08/20/17at 09:25; Start 08/18/17 at 09:00; Status Future Hold Atorvastatin Calcium (Lipitor) 20 mg HS PO Last administered on 08/22/17at 21:47 ; Start 08/18/17 at 21:00 Atropine Sulfate (Atropine Inj) 0.5 mg UNSCH PRN IV PUSH VAGAL REPONSE; Start 08/19/17 at 12:15 Bacitracin (Bacitracin Oint Packet) 0.9 gm ONCE ONCE TOP Last administered on 08/19/17at 12:15; Start 08/19/17 at 12:15; Stop 08/19/17 at 12:16; Status DC Cefazolin Sodium 500 mg/Sodium Chloride 505 ml @ 0 mls/hr [employer] IRRIGATION ; Start 08/19/17 at 15:30; Stop 08/26/17 at 15:29 Cefazolin Sodium/ Dextrose 50 ml @ 150 mls/hr [employer]LL[employer] IV ; Start 08/19/17 at 15 :30; Stop 08/26/17 at 15:29 Chlorhexidine Gluconate (Hibiclens 4% Top Soln) 1 applic [employer]LL[employer] TOPICAL ; Start 08/19/17 at 15:30; Stop 08/26/17 at 15:29 Dextrose (D50w (Vial) Inj) 50 ml UNSCH PRN IV PUSH HYPOGLYCEMIA-SEE COMMENTS; Start 08/19/17 at 15:30 Digoxin (Lanoxin) 0.25 mg DAILY PO Last administered on 08/22/17at 09:03; Start 08/18/17 at 09:00 Diltiazem HCl (Cardizem Cd) 240 mg DAILY PO Last administered on 08/22/17at 09: 03; Start 08/18/17 at 09:00 Fentanyl Citrate (fentaNYL INJ) 50 mcg ONCE ONCE IV Last administered on at 11:28; Start 08/19/17 at 11:28; Stop 08/19/17 at 14:57; Status DC Glucagon (Glucagon Inj) 1 mg UNSCH PRN OTHER HYPOGLYCEMIA-SEE COMMENTS; Start 08/18/17 at 02:45 Heparin Sodium (Porcine) (Heparin Inj) 4,000 units ONCE ONCE IV PUSH Last administered on 08/18/17at 02:12; Start 08/18/17 at 01:00; Stop 08/18/17 at 01:01; Status DC Heparin Sodium/ Dextrose 250 ml @ 10 mls/hr TITRATE PRN IV Coagulation Management Last administered on 08/22/17at 21:45; Start 08/19/17 at 13:00 Insulin Aspart (NovoLOG SUPPLEMENTAL SCALE) 1 ACHS SLIDING SCALE SQ Last administered on 08/22/17at 09:04; Start 08/18/17 at 08:00 Insulin Human Regular 100 units/ Sodium Chloride 100 ml @ 3 mls/hr TITRATE PRN IV for blood glucose control; Start 08/19/17 at 15:30; Stop 08/26/17 at 15:29 Metoprolol Tartrate (Lopressor) 12.5 mg [employer]RILLER PO ; Start 08/19/17 at 15:30; Stop 08/26/17 at 15:29 Midazolam HCl (Versed Inj) 1 mg ONCE ONCE IV Last administered on 08/19/17at 11: 27; Start 08/19/17 at 11:27; Stop 08/19/17 at 14:55; Status DC Morphine Sulfate (Morphine Inj) 2 mg Q3H PRN IV PUSH PAIN SCALE 6 TO 10; Start 08/18/17 at 02:45 Mupirocin (Bactroban Nasal 2% Oint) 1 applic BID EACH NARE Last administered on 08/22/17at 21:00; Start 08/19/17 at 21:00; Stop 08/24/17 at 20:59 Nitroglycerin/ Dextrose 250 ml @ 1.5 mls/hr TITRATE ONCE IV Last administered on 08/18/17at 00:12; Start 08/17/17 at 23:45; Stop 08/19/17 at 17:45; Status DC Papaverine HCl 60 mg/Nitroglycerin 100 mcg/Diltiazem HCl 100 mg/Sodium Chloride 100 ml @ 0 mls/hr [employer] IRRIGATION ; Start 08/19/17 at 15:30; Stop 08/26/17 at 15:29 Sodium Chloride (NS Flush) 2 ml UNSCH PRN IV FLUSH FLUSH AFTER USING IV ACCESS ; Start 08/19/17 at 15:30 A/P Assessment and Plan NSTEMI Unstable Angina No further chest pain Status post cardiac catheterization;1 of 3 bypass grafts are patent/Severe [place] three-vessel disease Echocardiogram with 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 Cardiology following Atrial fibrillation Continue diltiazem Continue metoprolol CAD CHF HLD Continue digoxin Continue metoprolol Follow clinically Diabetes mellitus type 2 Follow blood sugars Insulin sliding scale Diabetic diet COPD No exacerbation Continue duo nebs as needed DVT prophylaxis Heparin drip Discharge Planning awaiting CT surgical intervention. James Beckham MD Aug 23, 2017 08:03
[2017-08-23] MEDS: DIGOXIN 0.25 MG TAB PO SCH (09:49)
[2017-08-23] MEDS: DILTIAZEM-CD 240 MG CAP ER PO SCH (09:49)
[2017-08-23] MEDS: ASPIRIN 81 MG CHEW TAB CHEW SCH (09:49)
[2017-08-23] MEDS: METOPROLOL TARTRATE 100 MG TAB PO SCH ×2 (09:49→21:20)
[2017-08-23] MEDS: MUPIROCIN 2% OINT 1 APPLIC/GM SYR EACH NARE SCH ×2 (09:49→21:25)
[2017-08-23] MEDS: SODIUM CHLORIDE 0.9% FLUSH 10 ML FLUSH IV FLUSH SCH ×2 (09:50→21:00)
[2017-08-23] MEDS: SODIUM CHLOR 0.9% 1000 ML INJ 1,000 ML IV SCH ×2 (09:51→21:19)
--- NOTE | 2017-08-23 13:11 | HHI.FF ---
Face to Face Verification Diagnosis: (1) s/p Redo AVR (2) Hx of CABG (3) hx AVR (4) Tobacco abuse (5) HTN (hypertension) (6) CAD (coronary artery disease) (7) NSTEMI (non-ST elevated myocardial infarction) Physical Therapy Order: Evaluate and Treat Home Health Nursing Order: Signs/symptoms of disease process Medication education-adverse effect Wound care and dressing changes Nursing assessment with vital signs Instructions: Heart and Vascular Surgery patients *Special attention to sternal dressing Mandatory frequency Assess and evaluation, 4 days in a row The next week 3X week 2 times a week for 4 weeks 1 time a week for 5 weeks Schedule Heart and Vascular patients for full 60 day certification period Initial visit Review Open Heart Surgery Discharge Instructions (Sternal precautions, Activity, Elastic hose, Incision care, Driving, Incentive spirometry, Smoking, [place], Work and other) Need Betadine to paint incision Medication reconciliation Importance of follow up care/ check on appointments Make calendar record temperature daily When to call [facility] at Home nurse, review instructions, phone list Incentive Spirometry, demonstration Visit 1- Begin discharge instruction for patient family and/ or caregiver using teach back method- Signs and symptoms of infection Disease characteristics Medicines and side effects Foods and nutrition/ appetite Infection control/ hand washing/ hygiene Visit 2- Continue teaching Discharge instructions- include additional information on smoking cessation , sternal dressing (sternal vac) Visit 3- Continue teaching- Cough and deep breathing, incision monitoring. Choose my plate Visit 4- Continue teaching- Discuss limitations Discuss how they are feeling Discuss progress toward goals Remaining visits- continue teaching and monitoring For any questions please call : Tuesday 8am-5pm Heart & Vascular Surgery Office ( Dr. Roland & Dr. Guerrero), After Hours / Nights (5pm -8am) Weekends and Holidays Please call [facility] [address] Cardiac Intermediate Care Unit (CIC) Charge Nurse PREVENA Single Use Negative Wound Therapy System Caregiver Instruction Sheet 1. A Prevena dressing system was applied to the chest incision during surgery , to promote wound healing. It works via a suction device (negative pressure wound therapy) to remove low to moderate levels of exudate (drainage) and infectious materials. We recommend that the device stay in place for up to seven days, from day of surgery. 2. Day of Surgery___2/ Day of Removal 08/31/17 3. The dressing should only be removed by a health career development manager. Please arrange removal of device to coincide with Home Health visit and or with Nursing staff at Rehab 4. If skin reddening or irritation of skin occurs, or excessive drainage, please notify the Cardiovascular Surgeons office at [phone]. 5. Light showering is permissible; however the pump should be disconnected and placed in safe location, where it will not get wet. The dressing should not be exposed to direct spray or submerged in water. No bath tub / shower only. Ensure the end of the tubing attached to the dressing is facing down so that water does not enter the top of the tube. 6. To remove Prevena dressing: press purple button to turn off device / remove the suction. Then disconnect the tubing from the pump. The fixation strips should be stretched away from the skin and the dressing lifted at one corner and peeled back until it has been fully removed. 7. After removal, it is ok to shower daily using liquid dial soap and clean wash cloth, rinse and pat dry, and leave incision open to air dry. For any concerns regarding Prevena dressing, and or wounds, please contact Jenni Parks, patient navigator at [phone] or notify the Cardiovascular Surgeons office at [phone]. Incentive spirometry Q1 hr x 10, while awake, also use acapella device hourly whole awake Sternal Breast Bone Precautions: NO pushing or pulling, ( pt must use sternal pillow to support chest with all activities and with coughing ( takes up to 3 months breast bone to heal ) Daily incision care: ok to shower daily, no tub bath. Wash all incisions with liquid dial soap, clean wash cloth to each site, rinse and pat dry. Observe for any signs of infection, such as drainage which is dark yellow, koo, green or foul smelling. Immediately report to the surgeon any drainage from the chest incision, or legs, and for any abnormal drainage from the chest tube sites. Notify surgeon if any temp >101.5 degrees F. When specialty dressing removed/ or if you do not have one, continue to shower daily as above, then rinse and pat incision dry and paint with betadine daily x 5 days. Allow steri strips to fall off if you have any. Avoid lotions, creams, salves, oils, etc. for the first month Please see attached forms for additional instructions regarding post Open Heart specialty wound vacuum dressings. JEFF or Prevena , Dressing to be removed by Nursing staff on __08/31/[address] Guerrero patients , please obtain CBC, BMP, PA & Lat CXR in 2 weeks, results to Dr. Guerrero ( prescription will be given) ( ) (Tele: [phone]) , Valve replacement pts will need 2decho in 2 weeks with results to Dr. Guerrero . Please obtain 2 d echo at your casino floor walker office if possible F/U appointment: as per DC instructions: PCP in 2 weeks, CV surgeon 2 weeks, Cheese Pancake Roller 3-4 weeks For any questions regarding incisions/ dressing / meds / post op care or above Symptoms, Tuesday 8am-5pm Heart & Vascular Surgery Office ( Dr. Roland & Dr. Guerrero), After Hours / Nights (5pm -8am) Weekends and Holidays Please call [facility] [address] Cardiac Intermediate Care Unit (CIC) Charge Nurse I have seen patient Puma Escobar on 08/23/17. My clinical findings support the need for the requested home health care services because: Deconditioned w/ increased weakness I certify that my clinical findings support that this patient is homebound because: Post-op weakness Reba Smallwood Aug 23, 2017 13:11
--- NOTE | 2017-08-23 13:17 | PD.CAR.PN ---
CVT Progress Note Subjective/Hospital Course: 57-year-old male with a past medical history significant for CAD status post AVR /CABG with a [address] [place] [place] mechanical valve, atrial fibrillation anticoagulated on Eliquis, hypertension, diabetes mellitus, hyperlipidemia and COPD presents to the emergency department complaining of chest pain. The patient states his chest pain began last night and felt as though an elephant was sitting on his chest. He describes it as substernal and nonradiating. He endorses positive shortness of breath. He has had a cough productive of yellow sputum for approximately 3 weeks. He denies nausea vomiting. Denies fever/chills. Of note, the patient reports he has been out of his medications including his Cardizem and Eliquis for the past 3 days. He has been non-compliant with anticoagulation with resulting prosthetic valve malfunction requiring high-risk REDO sternotomy and REDO AVR/CABG. He also continues to smoke 1ppd cigarettes 08/23 scheduled for surgery in am no chest pain during the night Objective: GENERAL: SKIN: Warm and dry. HEAD: Normocephalic. EYES: No scleral icterus. No injection or drainage. NECK: Supple, trachea midline. No JVD or lymphadenopathy. CARDIOVASCULAR: Regular rate and rhythm without murmurs, gallops, or rubs. RESPIRATORY: Breath sounds equal bilaterally. No accessory muscle use. GASTROINTESTINAL: Abdomen soft, non-tender, nondistended. MUSCULOSKELETAL: No cyanosis, or edema. BACK: Nontender without obvious deformity. No CVA tenderness. Vital Signs Date Time Temp Pulse Resp B/P (MAP) Pulse Ox O2 Delivery O2 Flow Rate FiO2 08/23/17 12:22 98.0 70 16 128/56 (80) 99 08/23/17 07:44 96 Room Air 08/23/17 07:44 98.4 57 18 118/72 (87) 96 08/23/17 06:00 78 08/23/17 05:00 68 08/23/17 03:00 97.3 62 16 109/65 (80) 96 08/23/17 02:00 72 08/23/17 01:00 75 08/23/17 00:00 72 08/22/17 23:00 55 08/22/17 23:00 98.5 55 16 126/72 (90) 99 08/22/17 22:00 66 08/22/17 21:00 97 Room Air 08/22/17 21:00 68 08/22/17 21:00 98.2 68 18 130/78 (95) 97 08/22/17 17:00 97 Room Air 08/22/17 16:00 85 08/22/17 16:00 98.1 85 20 118/65 (82) 97 08/22/17 13:38 62 Labs: Laboratory Tests Test 08/23/17 06:08 Activated Partial Thromboplast Time 45.9 SEC (24.3-30.1) Result Diagram: 08/22/17 0547 08/22/17 0547 (1) NSTEMI (non-ST elevated myocardial infarction) Plan: Continue heparin. Redo AVR tues / possible CABG (2) HTN (hypertension) (3) CAD (coronary artery disease) Problem Qualifiers (1) CAD (coronary artery disease): Qualified Codes: I25.110 - Atherosclerotic heart disease of [place] coronary artery with unstable angina pectoris Reba Smallwood Aug 23, 2017 13:17
[2017-08-23] MEDS: HEPARIN-D5W 25,000 U/250 ML 250 ML IV PRN (15:38)
[2017-08-23] MEDS: ATORVASTATIN 20 MG TAB PO SCH (21:20)
[2017-08-24] VITALS (9 sets, daily range): BP systolic 82–98; BP diastolic 46–65; PULSE 51–133; RESP 16–20; TEMP 97.8–98; O2SAT 83–99
[2017-08-24 04:32] LABS: HEMATOCRIT 43.8 % (39.0-51.0); HEMOGLOBIN 15.4 GM/DL (13.0-17.0); MEAN CELL VOLUME 96.9 FL (80.0-100.0); MEAN CORPUSCULAR HGB CONC 35.1 % (32.0-36.0); MEAN PLATELET VOLUME 8.7 FL (7.0-11.0); PLATELET COUNT 169 TH/MM3 (150-450); RED BLOOD COUNT 4.51 MIL/MM3 (4.50-5.90); RED CELL DISTRIBUTION WIDTH 13.7 % (11.6-17.2); WHITE BLOOD COUNT 9.8 TH/MM3 (4.0-11.0)
[2017-08-24] MEDS: SODIUM CHLOR 0.9% 1000 ML INJ 1,000 ML IV SCH (05:45)
[2017-08-24] MEDS: RESP: ALBUTEROL 2.5 MG/IPRATROPIUM 0.5 MG NEB (PRN) NEB ×3 (06:03→19:48)
[2017-08-24] MEDS ORDERED: NITROGLYCERIN INJ 5 ML ONE (06:48)
[2017-08-24] MEDS ORDERED: VANCOMYCIN HCL 1000 MG VIAL ONE (06:52)
[2017-08-24] MEDS ORDERED: methylPREDNISolone SOD SUCC 125 MG/2 ML VIAL ONE (06:52)
[2017-08-24] MEDS ORDERED: HEPARIN SODIUM - SQ 10,000 UNITS/ML VIAL ONE (06:52)
[2017-08-24] MEDS ORDERED: ceFAZolin 2 GM PREMIX 50 ML ONE (06:53)
[2017-08-24] MEDS ORDERED: CUSTODIOL HTK IRR SOLN 3,000 ML ONE (07:24)
[2017-08-24] MEDS ORDERED: POTASSIUM CHLORIDE 40 MEQ/20 ML VIAL ONE (07:24)
--- NOTE | 2017-08-24 07:24 | HHI.PR ---
Subjective Remarks in no acute distress. denies pain. no new complaints. awaiting surgery today. Objective Vitals Vital Signs Date Time Temp Pulse Resp B/P (MAP) Pulse Ox O2 Delivery O2 Flow Rate FiO2 08/24/17 05:45 98.0 66 18 88/51 (63) 96 08/24/17 03:48 51 08/23/17 23:15 54 18 112/60 (77) 96 08/23/17 23:00 66 08/23/17 22:52 98 21 08/23/17 20:03 97.9 66 18 110/56 (74) 98 08/23/17 20:03 98 Room Air 08/23/17 19:30 61 08/23/17 18:42 67 08/23/17 17:00 60 08/23/17 16:00 54 08/23/17 15:32 98.3 58 18 105/69 (81) 99 08/23/17 15:00 56 08/23/17 14:00 68 08/23/17 13:00 64 08/23/17 12:22 98.0 70 16 128/56 (80) 99 08/23/17 12:00 56 08/23/17 11:00 69 08/23/17 10:00 62 08/23/17 07:44 96 Room Air 08/23/17 07:44 98.4 57 18 118/72 (87) 96 I/O 08/23/17 08/23/17 08/23/17 08/24/17 08/24/17 08/24/17 07:00 15:00 23:00 07:00 15:00 23:00 Intake Total 1550 ml 850 ml 240 ml Output Total 960 ml 750 ml 1600 ml Balance 590 ml 100 ml -1360 ml Intake Oral 1550 ml 600 ml 240 ml IV Total 250 ml Output Urine Total 960 ml 750 ml 1600 ml # Bowel Movements 1 0 Result Diagram: 08/24/17 0358 08/22/17 0547 Imaging Last Impressions Lower Extremity Ultrasound 08/19/17 0000 Signed Impressions: Service Date/Time: Saturday, August 19, 2017 16:33 - CONCLUSION: Venous mapping as above. The below knee greater saphenous vein on the left is not visualized possibly representing prior vein harvesting.. Edvin Guzman MD Chest CT 08/19/17 0000 Signed Impressions: Service Date/Time: Saturday, August 19, 2017 21:30 - CONCLUSION: 1. Bibasilar infiltrates with small bilateral effusions suggestive of atelectasis. 2. Increased interstitial markings bilaterally suggesting some mild pulmonary edema. 3. Central lobar emphysema throughout both lung cano. 4. Mild aneurysmal dilatation of the ascending thoracic aorta measuring 4.5 x 4.4 cm. No significant change compared to the prior study. Vinicio Bethea MD Carotid Artery Ultrasound 08/19/17 0000 Signed Impressions: Service Date/Time: Saturday, August 19, 2017 16:05 - CONCLUSION: 1. Minimal plaquing in both carotid systems. 2. No sonographic or Doppler findings of a hemodynamically significant stenosis. Edvin Guzman MD Chest X-Ray 08/17/17 2343 Signed Impressions: Service Date/Time: Thursday, August 17, 2017 23:53 - CONCLUSION: 1. No acute finding is identified. 2. Stable emphysema with subpleural interstitial opacities/scar in the inferior left upper lobe. There is blunting of the left costophrenic sulcus which previously was related to mild pleural thickening and small pleural effusion. Patrice Beasley MD Objective Remarks GENERAL: This is a well-nourished, well-developed patient, in no apparent distress. CARDIOVASCULAR: Regular rate and regular rhythm without murmurs, gallops, or rubs. RESPIRATORY: Clear to auscultation. Breath sounds equal bilaterally. No wheezes , rales, or rhonchi. GASTROINTESTINAL: Abdomen soft, non-tender, nondistended. Normal, active bowel sounds MUSCULOSKELETAL: Extremities without clubbing, cyanosis, or edema. NEURO: Alert & Oriented x4 to person, place, time, situation. Moves all ext x4 Procedures cardiac cath. Medications and IVs Inpatient Medications Acetaminophen (Tylenol) 500 mg Q4H PRN PO HEADACHE; Start 08/18/17 at 02:45 Albuterol/ Ipratropium (Duoneb Neb) 1 ampule Q4HR NEB PRN NEB SOB/Wheezing; Start 08/18/17 at 05:30 Aspirin (Aspirin Chew) 81 mg DAILY CHEW Last administered on 08/23/17at 09:49; Start 08/22/17 at 10:15 Aspirin (Aspirin) 325 mg DAILY PO Last administered on 08/20/17at 09:25; Start 08/18/17 at 09:00; Status Future Hold Atorvastatin Calcium (Lipitor) 20 mg HS PO Last administered on 08/23/17at 21:20 ; Start 08/18/17 at 21:00 Atropine Sulfate (Atropine Inj) 0.5 mg UNSCH PRN IV PUSH VAGAL REPONSE; Start 08/19/17 at 12:15 Bacitracin (Bacitracin Oint Packet) 0.9 gm ONCE ONCE TOP Last administered on 08/19/17at 12:15; Start 08/19/17 at 12:15; Stop 08/19/17 at 12:16; Status DC Cefazolin Sodium 500 mg/Sodium Chloride 505 ml @ 0 mls/hr [employer] IRRIGATION ; Start 08/19/17 at 15:30; Stop 08/26/17 at 15:29 Cefazolin Sodium/ Dextrose 50 ml @ 150 mls/hr [employer] WORKER IV ; Start 08/19/17 at 15 :30; Stop 08/26/17 at 15:29 Chlorhexidine Gluconate (Hibiclens 4% Top Soln) 1 applic [employer]ER TOPICAL Last administered on 08/24/17at 06:22; Start 08/19/17 at 15:30; Stop 08/26/17 at 15:29 Dextrose (D50w (Vial) Inj) 50 ml UNSCH PRN IV PUSH HYPOGLYCEMIA-SEE COMMENTS; Start 08/19/17 at 15:30 Digoxin (Lanoxin) 0.25 mg DAILY PO Last administered on 08/23/17at 09:49; Start 08/18/17 at 09:00 Diltiazem HCl (Cardizem Cd) 240 mg DAILY PO Last administered on 08/23/17at 09: 49; Start 08/18/17 at 09:00 Fentanyl Citrate (fentaNYL INJ) 50 mcg ONCE ONCE IV Last administered on at 11:28; Start 08/19/17 at 11:28; Stop 08/19/17 at 14:57; Status DC Glucagon (Glucagon Inj) 1 mg UNSCH PRN OTHER HYPOGLYCEMIA-SEE COMMENTS; Start 08/18/17 at 02:45 Heparin Sodium (Porcine) (Heparin Inj) 4,000 units ONCE ONCE IV PUSH Last administered on 08/18/17at 02:12; Start 08/18/17 at 01:00; Stop 08/18/17 at 01:01; Status DC Heparin Sodium/ Dextrose 250 ml @ 10 mls/hr TITRATE PRN IV Coagulation Management Last administered on 08/23/17at 15:38; Start 08/19/17 at 13:00 Insulin Aspart (NovoLOG SUPPLEMENTAL SCALE) 1 ACHS SLIDING SCALE SQ Last administered on 08/22/17at 09:04; Start 08/18/17 at 08:00 Insulin Human Regular 100 units/ Sodium Chloride 100 ml @ 3 mls/hr TITRATE PRN IV for blood glucose control; Start 08/19/17 at 15:30; Stop 08/26/17 at 15:29 Metoprolol Tartrate (Lopressor) 12.5 mg [employer]ER PO ; Start 08/19/17 at 15:30; Stop 08/26/17 at 15:29 Midazolam HCl (Versed Inj) 1 mg ONCE ONCE IV Last administered on 08/19/17at 11: 27; Start 08/19/17 at 11:27; Stop 08/19/17 at 14:55; Status DC Morphine Sulfate (Morphine Inj) 2 mg Q3H PRN IV PUSH PAIN SCALE 6 TO 10; Start 08/18/17 at 02:45 Mupirocin (Bactroban Nasal 2% Oint) 1 applic BID EACH NARE Last administered on 08/23/17at 21:25; Start 08/19/17 at 21:00; Stop 08/24/17 at 20:59 Nitroglycerin/ Dextrose 250 ml @ 1.5 mls/hr TITRATE ONCE IV Last administered on 08/18/17at 00:12; Start 08/17/17 at 23:45; Stop 08/19/17 at 17:45; Status DC Papaverine HCl 60 mg/Nitroglycerin 100 mcg/Diltiazem HCl 100 mg/Sodium Chloride 100 ml @ 0 mls/hr [employer] IRRIGATION ; Start 08/19/17 at 15:30; Stop 08/26/17 at 15:29 Sodium Chloride (NS Flush) 2 ml UNSCH PRN IV FLUSH FLUSH AFTER USING IV ACCESS ; Start 08/19/17 at 15:30 A/P Assessment and Plan NSTEMI Unstable Angina No further chest pain Status post cardiac catheterization;1 of 3 bypass grafts are patent/Severe [place] three-vessel disease Echocardiogram with 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 Cardiology following Atrial fibrillation Continue diltiazem Continue metoprolol CAD CHF HLD Continue digoxin Continue metoprolol Follow clinically Diabetes mellitus type 2 Follow blood sugars Insulin sliding scale Diabetic diet COPD No exacerbation Continue duo nebs as needed thoracic aortic aneurysm f/u as outpatient. DVT prophylaxis post-op per Ct surgery. Discharge Planning awaiting CT surgical intervention. James Beckham MD Aug 24, 2017 07:24
[2017-08-24] MEDS ORDERED: HEPARIN SODIUM - IV 10,000 UNITS/10 ML VIAL ONE ×2 (07:25→17:52)
[2017-08-24] MEDS ORDERED: CALCIUM CHLORIDE 10% SOLN 1 GRAM/10 ML SYR ONE (07:25)
[2017-08-24] MEDS ORDERED: ALBUMIN 25% INJ 50 ML IV ONE (07:25)
[2017-08-24] MEDS ORDERED: SODIUM BICARBONATE 8.4% INJ 150 ML ONE (07:26)
[2017-08-24] MEDS ORDERED: MANNITOL INJ 100 ML ONE (07:26)
[2017-08-24] MEDS: MUPIROCIN 2% OINT 1 APPLIC/GM SYR EACH NARE SCH (09:00)
[2017-08-24] MEDS: DIGOXIN 0.25 MG TAB PO SCH (09:00)
--- NOTE | 2017-08-24 10:06 | RSPPFT ---
DATE OF PROCEDURE: 08/22/17 COMMENTS: Spirometry with FVC of 2.8 predicted 4.5, FEV1 of 1.5 predicted 3.7, FEV1/FVC ratio 55% predicted 80%. IMPRESSION: On the basis of the above, patient has an obstructive lung defect. Post-bronchodilator values were not measured.
[2017-08-24] MEDS ORDERED: AMINOCAPROIC ACID INJ 250 MG/ML 20 ML VIAL IV ONE (12:00)
[2017-08-24] MEDS ORDERED: TRANEXAMIC ACID INJ 1,000 MG/10 ML AMP IV ONE (12:00)
[2017-08-24] MEDS ORDERED: EPINEPHrine HCL (1:1000) 30 MG/30 ML VIAL IV ONE (12:00)
[2017-08-24] MEDS ORDERED: ceFAZolin INJ 1,000 MG VIAL IV ONE ×2 (12:00→16:30)
[2017-08-24] MEDS ORDERED: SODIUM CHLORIDE 0.9% INJ 200 ML IV ONE (12:00)
[2017-08-24] MEDS ORDERED: PROTAMINE SULFATE 250 MG/25 ML VIAL IV ONE ×2 (12:00)
[2017-08-24] MEDS ORDERED: PHENYLEPHRINE HCL 10 MG/ML VIAL IV ONE (12:00)
[2017-08-24] MEDS ORDERED: NOREPINEPHRINE 4 MG/4 ML AMP IV ONE (12:00)
[2017-08-24] MEDS ORDERED: VECURONIUM BROMIDE 10 MG VIAL IV ONE (12:00)
[2017-08-24] MEDS ORDERED: LIDOCAINE HCL 1% PF 5 ML SYRINGE OTHER ONE (12:00)
[2017-08-24] MEDS ORDERED: SODIUM CHLOR 0.9% 250 ML INJ 750 ML IV ONE (12:00)
[2017-08-24] MEDS ORDERED: GLYCOPYRROLATE 1 MG/5 ML SYRINGE IV PUSH ONE (12:00)
[2017-08-24] MEDS ORDERED: SODIUM BICARBONATE 8.4% INJ 50 MEQ/50 ML SYR IV ONE (12:00)
[2017-08-24] MEDS ORDERED: CALCIUM CHLORIDE 10% SOLN 1 GRAM/10 ML SYR IV ONE (12:00)
[2017-08-24] MEDS ORDERED: PHENYLEPH/NS 1000 MCG/10 ML SYR IV ONE ×2 (12:00)
[2017-08-24] MEDS ORDERED: HEPARIN SODIUM - SQ 10,000 UNITS/ML VIAL SQ ONE (12:00)
[2017-08-24] MEDS ORDERED: LACTATED RINGER'S 1000 ML INJ 2,000 ML IV ONE (12:00)
[2017-08-24] MEDS ORDERED: NS 500 ML (EXCEL BAG) INJ 1,000 ML IV ONE (12:00)
[2017-08-24] MEDS ORDERED: MAGNESIUM SULFATE 1 GM/2 ML VIAL IV ONE (12:00)
[2017-08-24] MEDS ORDERED: DOPamine INJ PREMIX 500 ML IV ONE ×2 (12:00)
[2017-08-24] MEDS ORDERED: NORMOSOL R INJ 3,000 ML IV ONE (12:00)
[2017-08-24] MEDS ORDERED: DEXMEDETOMIDINE HCL 200 MCG/2 ML VIAL IV ONE ×2 (12:00)
[2017-08-24] MEDS ORDERED: ePHEDrine/NS 25 MG/5 ML SYRINGE IV ONE (12:00)
[2017-08-24] MEDS ORDERED: VECURONIUM BROMIDE 20 MG VIAL IV ONE (12:00)
[2017-08-24] MEDS ORDERED: ceFAZolin INJ 1,000 MG VIAL IV PUSH ONE (12:30)
[2017-08-24] MEDS ORDERED: VECURONIUM BROMIDE 20 MG VIAL ONE (15:25)
[2017-08-24] MEDS ORDERED: LACTATED RINGER'S 1000 ML INJ 500 ML IV PRN (17:42)
[2017-08-24] MEDS ORDERED: DEXTROSE 50% IN WATER 50 ML VIAL(D50) IV PUSH PRN (17:45)
[2017-08-24] MEDS ORDERED: ONDANSETRON HCL 4 MG/2 ML VIAL IV PUSH PRN (17:45)
[2017-08-24] MEDS ORDERED: ALBUMIN 5% INJ 250 ML IV PRN (17:45)
[2017-08-24] MEDS ORDERED: POTASSIUM CHLORIDE 20 MEQ CONTROLLED RELEASE TAB PO PRN ×2 (17:45)
[2017-08-24] MEDS ORDERED: hydrALAZINE HCL 20 MG/ML VIAL IV PUSH PRN (17:45)
[2017-08-24] MEDS ORDERED: Post-op Orders (for Pharmacy) OTHER ONE (17:45)
[2017-08-24] MEDS ORDERED: ACETAMINOPHEN 650 MG SUPP RECTAL PRN (17:45)
[2017-08-24] MEDS ORDERED: MAGNESIUM SULFATE INJ 2 GM in SODIUM CHLORIDE 0.9% INJ 100 ML IV PRN ×4 (17:45)
[2017-08-24] MEDS ORDERED: SODIUM CHLORIDE 0.9% FLUSH 10 ML FLUSH IV FLUSH PRN (17:45)
[2017-08-24] MEDS ORDERED: RESP: RACEPINEPHRINE 2.25% 0.5 ML NEB NEB PRN (17:45)
[2017-08-24] MEDS ORDERED: CALCIUM CHLORIDE 10% 1 GRAM/10 ML VIAL IV PUSH PRN (17:45)
[2017-08-24] MEDS ORDERED: SODIUM BICARBONATE 8.4% SOLN 50 MEQ/50 ML VIAL IV PUSH PRN ×2 (17:45)
[2017-08-24] MEDS ORDERED: POTASSIUM CHLOR 20 MEQ PREMIX 100 ML IV PRN ×3 (17:45)
[2017-08-24] MEDS ORDERED: CALCIUM CHLORIDE INJ 1 GM in SODIUM CHLORIDE 0.9% INJ 100 ML IV PRN (17:45)
[2017-08-24] MEDS ORDERED: ACETAMINOPHEN 325 MG TAB PO PRN (17:45)
[2017-08-24] MEDS ORDERED: CLEVIDIPINE INJ 50 ML IV PRN (17:45)
[2017-08-24] MEDS ORDERED: MANNITOL INJ 50 ML ONE (17:52)
[2017-08-24] MEDS ORDERED: SODIUM BICARBONATE 8.4% INJ 100 ML ONE (17:52)
[2017-08-24] MEDS: ACETAMINOPHEN 1000 MG/100 ML 100 ML IV SCH (18:00)
--- NOTE | 2017-08-24 18:13 | PD.OP ---
cc: Annalee Guerrero MD; William Villagran MD Operative Report Date of Surgery: Aug 24, 2017 Preoperative Diagnosis: (1) NSTEMI (non-ST elevated myocardial infarction) (2) CAD (coronary artery disease) (3) Aortic valve insufficiency (4) Prosthetic valve malfunction Postoperative Diagnosis: same Procedure: REDO sternotomy for REDO AVR with a 21 Trifecta tissue valve Right femoral arterial line placement SANTINO Anesthesia: Dr. Suresh Surgeon: Annalee Guerrero Java Project Manager(s): Nette Salomon PAC Operation and Findings: The risks, benefits, complications, treatment options, and expected outcomes were discussed with the patient. The possibilities of reaction to medication, pulmonary aspiration, perforation of viscus, bleeding, recurrent infection, the need for additional procedures, failure to diagnose a condition, and creating a complication requiring transfusion or operation were discussed with the patient. The patient concurred with the proposed plan, giving informed consent. The site of surgery properly noted/marked. The patient was taken to Operating Room, identified as Puma Escobar and the procedure verified as REDO sternotomy for REDO Aortic Valve Replacement. A Time Out was held and the above information confirmed. Standard monitoring lines and Quick catheter were placed. General anesthesia was induced. The patient was prepped and draped in a sterile fashion. The prior sternotomy incision was opened and electrocautery was used to dissect down to the anterior sternal table. The previous wires were cut and the sternum was divided using an oscillating bone saw. Dense adhesions were encountered mobilizing the sternal tables away from the underlying mediastinal structures. A right femoral arterial line was placed percutaneously at this point.. Once the adhesions to the sternum and chest wall were lysed, a retractor was placed. Dense adhesions were encountered and the pericardial space was obliterated from his first AVR surgery. Lysing adhesions was difficult and the patient was heparinized cardiopulmonary bypass once the aorta and right atrium were adequately exposed. The heart was instrumented for cardiopulmonary bypass in the usual manner. Antegrade Custodiol cardioplegia was employed. Additionally, hand-held coronary cardioplegia cannula was used during the procedure. The patient was placed on cardiopulmonary bypass. The heart was mobilized to allow temporary occlusion of the patent LOPEZ graft. An aortic cross-clamp was applied and the heart was arrested using cold Custodiol cardioplegia. The LOPEZ was temporarily occluded during the cross clamp period. The aorta was opened above the sinotubular ridge and the aortic valve was exposed. The coronary ostia were directly cannulated in addition and cardioplegia was administered directly. On opening the aorta, previous valve had a large amount of thrombus partially obstructing ~50% of the valve orifice and preventing leaflet closure. The valve was resected, sized for a 21 mm Intuity valve which was balloon deployed. Unfortunately, the valve did not seat properly and was removed. A 21 Trifecta tissue valve was placed using 2-0 Ticron pledgeted horizontal mattress sutures.. The valve seated well. The aorta was closed with running 4-0 Prolene suture. The patient systemically rewarmed. The heart was vigorously deaired with a clamp on. The clamp was removed, deairing continued. The patient was easily weaned from cardiopulmonary bypass. Protamine was given. There was no adverse reaction. Decannulation was carried out without incident. Intraoperative SANTINO following the procedure showed a well-seated aortic valve with no perivalvular leak and preserved ventricular function. Wound was checked for hemostasis was obtained using electrocautery. 32 F right pleural and 36 F mediastinal chest tubes were placed and secured. The sternum was closed with stainless steel wire. The fascia was closed with 1. PDS. The subcutaneous tissue was closed using a running 2-0 Vicryl suture. The skin was closed with 4- 0 Monocryl. Sterile dressings were placed. At the end of the operation, all sponge, instruments, and needle counts were correct. The patient was transferred to the CVICU in stable condition. Findings: dense adhesions throughout the mediastinum and pericardial space. Thrombosed mechanical valve XC: 161 min CPB: 224 min Drains: mediastinal x 1, right pleura x 1 Specimens: mechanical valve excised Implants: 21 Trifecta tissue valve Complications: 21 Intuity valve did not seat properly and could not be used Disposition: to CVICU in stable condition Annalee Guerrero MD Aug 24, 2017 18:12
[2017-08-24] MEDS: INSULIN REGULAR (IV INFUSION) 100 UNITS in SODIUM CHLORIDE 0.9% INJ 99 ML IV PRN (18:15)
[2017-08-24] MEDS: DEXMEDETOMIDINE INJ 200 MCG in SODIUM CHLORIDE 0.9% INJ 50 ML IV PRN (18:15)
[2017-08-24] MEDS ORDERED: fentaNYL CITRATE 1000 MCG/20 ML VIAL ONE (18:41)
[2017-08-24] MEDS ORDERED: MIDAZOLAM HCL 2 MG/2 ML VIAL ONE ×2 (18:41→18:43)
--- NOTE | 2017-08-24 19:05 | RADRPT ---
EXAM DATE/TIME: 08/24/2017 18:43 [facility] COMPARISON: CHEST SINGLE AP, August 17, 2017, 23:53. INDICATIONS : Status post CABG. MEDICAL HISTORY : Diabetes mellitus type II. Hypertension Chronic obstructive pulmonary disease. SURGICAL HISTORY : Coronary artery stent. CABG. Valve replacement. ENCOUNTER: Initial ACUITY: 1 day PAIN SCORE: Non-responsive. LOCATION: chest FINDINGS: Bilateral pleural effusions are present with slight to moderate pulmonary edema. ET tube is present w ith tip overlapping approximately 4 cm above the sin. NG tube is present with tip in the distal es ophagus. Mediastinal drainage tube is in place. Right IJ line is present with tip overlapping the exp ected region of the SVC. CONCLUSION: Volume overload and the tip of the NG tube is in distal esophagus at the level of the gastroesophagea l junction. Nilay Samuels MD on August 24, 2017 at 19:02 Board Certified Radiologist. This report was verified electronically.
[2017-08-24] MEDS ORDERED: DOBUTamine PREMIX DRIP 250 ML ONE (19:09)
[2017-08-24] MEDS ORDERED: FUROSEMIDE 40 MG/4 ML VIAL ONE (19:15)
[2017-08-24] MEDS ORDERED: MIDAZOLAM HCL 5 MG/ML VIAL (1 ML) ONE (19:18)
[2017-08-24] MEDS: RESP: ALBUTEROL 2.5 MG/IPRATROPIUM 0.5 MG NEB (SCH) NEB (19:45)
[2017-08-24] MEDS ORDERED: ROCURONIUM INJ 50 MG/5 ML VIAL ONE (19:51)
[2017-08-24] MEDS ORDERED: ALBUMIN 25% INJ 0 ML IV ONE (20:03)
[2017-08-24] MEDS ORDERED: ALBUMIN 5% IV ONE (20:15)
[2017-08-24] MEDS: CISATRACURIUM INJ 100 MG in SODIUM CHLOR 0.9% 250 ML INJ 250 ML IV PRN (20:30)
[2017-08-24] MEDS ORDERED: MIDAZOLAM 100 MG/100 ML INJ 100 ML IV PRN (20:45)
[2017-08-24] MEDS ORDERED: RASS Change Order XX ONE (21:00)
[2017-08-24] MEDS: ATORVASTATIN 20 MG TAB PO SCH (21:00)
[2017-08-24] MEDS ORDERED: CALCIUM CHLORIDE INJ 1 GM in SODIUM CHLORIDE 0.9% INJ 100 ML IV ONE (21:30)
--- NOTE | 2017-08-24 21:55 | PD.CONS ---
[facility] Service Critical Care Medicine Consult Requested By Dr. Guerrero Reason for Consult acute hypoxemia Primary Care Physician Yury Garcia D.O. History of Present Illness This is a 57yM with history of prior mechanical AVR with mechanical valve stenosis now POD 0 s/p re-do sternotomy and now bioprosthetic AVR. Intraoperative events were complicated by technically difficult dissection. pump run was 3.5 hrs. The patient had normal biventricular function by intra- operative SANTINO and had no perivalvular leak or bioprosthetic valve stenosis at the conclusion of the case. The patient arrived to the CVICU intubated, initially instable condition. However, the patient became acutely hypoxic upon arrival to the cvicu. initial attempts to suction lavage the patient were unsuccessful at improvements. I was called to the bedside. the patient had equal and bilateral breath sounds with evidence of a pericardial friction rub, but no wheezing or rales. CXR demonstrated ett in satisfactory position, bilateral airspace disease consistent with possible early pulmonary edema. We gave lasix 40mg iv x 1 without improvement. I increased the PEEP on the ventilator, again without any improvement. spo2 remained in the 70s. TTE was sufficient enough to rule out tamponade physiology and pericardial effusion, but was unable to rule out RV failure or intra-cardiac shunting. Serial ABG demonstrated rising lactate, most likely secondary to hypoxia and poor o2 delivery. STAT SANTINO demonstrated normal biventricular function, severely underfilled LV and RV. no evidence of intracardiac shunt by color flow, no pericardial effusion, no perivalvular leak. The patient was paralyzed and deeply sedated. patient was changed to pressure control mode of ventilation, and with recruitment maneuvers, as well as starting vasopressors to support cardiac function and improve perfusion pressures, spo2 began to rise > 90% on 100% fio2. Review of Systems ROS Limitations: Clinical Condition, Intubated, Altered Mental Status, Unresponsive Past Family Social History Allergies: Coded Allergies: No Known Allergies (Verified Allergy, Unknown, 08/17/17) Past Medical History CAD Hypertension Diabetes mellitus Hyperlipidemia COPD Atrial fibrillation anticoagulated on Eliquis Past Surgical History CABG 3 and aVR in 2014 Cardiac catheterization with stent 2 in 2006 Appendectomy Orbital floor repair Reported Medications Eliquis (Apixaban) 5 Mg Tab 5 Mg PO BID Lopressor (Metoprolol Tartrate) 100 Mg Tab 100 Mg PO BID Metformin ER (Metformin HCl) 500 Mg Tab 500 Mg PO DAILY 90 Days Diltiazem HCl (Diltiazem HCl Extended Release) 360 Mg Cap 240 Mg MT DAILY 90 Days Digoxin 0.25 Mg Tab 0.25 Mg PO DAILY Lipitor (Atorvastatin Calcium) 20 Mg Tab 20 Mg PO HS Aspirin Low Dose (Aspirin) 81 Mg Chew 81 Mg CHEW DAILY Active Ordered Medications See MAR Family History Mother with diabetes mellitus. Father of an NC at age 59. Social History Smokes approximately one pack per day. Occasional alcohol. Denies illicit drugs. Physical Exam Vital Signs Vital Signs Date Time Temp Pulse Resp B/P (MAP) Pulse Ox O2 Delivery O2 Flow Rate FiO2 08/24/17 18:16 97.8 90 20 87/50 (62) 87 82/46 (58) 08/24/17 18:15 100 08/24/17 18:15 87 Mechanical Ventilator 100 08/24/17 05:45 98.0 66 18 88/51 (63) 96 08/24/17 03:48 51 08/23/17 23:15 54 18 112/60 (77) 96 08/23/17 23:00 66 08/23/17 22:52 98 21 Physical Exam gen: on my exam, patient is acutely in distress, appears cyanotic, dusky. heent: pupils 2mm, reactive bilaterally. mucous membranes moist. neck: right IJ introducer sheath in place. no jvd. trachea midline. chest: equal chest rise. clear to auscultation. spo2 75% on 100% fio2, peep 10. cv: normal rate, regular rhythm. sinus by tele. pericardial friction rub present. 2 chest tubes exit subxiphoid with ~300cc/2hrs sanguinous output. abd: soft, nontender, nondistended. no guarding. extr: no peripheral edema. distal pulses 2+. warm, well-perfused. neuro: RASS -5. deeply sedated. Laboratory Laboratory Tests Test 08/24/17 03:58 White Blood Count 9.8 Red Blood Count 4.51 Hemoglobin 15.4 Hematocrit 43.8 Mean Corpuscular Volume 96.9 Mean Corpuscular Hemoglobin 34.0 Mean Corpuscular Hemoglobin Concent 35.1 Red Cell Distribution Width 13.7 Platelet Count 169 Mean Platelet Volume 8.7 Result Diagram: 08/24/17 0358 08/22/17 0547 Imaging Last Impressions Chest X-Ray 08/24/17 0000 Signed Impressions: Service Date/Time: Thursday, August 24, 2017 18:43 - CONCLUSION: Volume overload and the tip of the NG tube is in distal esophagus at the level of the gastroesophageal junction. Nilay Samuels MD Lower Extremity Ultrasound 08/19/17 0000 Signed Impressions: Service Date/Time: Saturday, August 19, 2017 16:33 - CONCLUSION: Venous mapping as above. The below knee greater saphenous vein on the left is not visualized possibly representing prior vein harvesting.. Edvin Guzman MD Chest CT 08/19/17 0000 Signed Impressions: Service Date/Time: Saturday, August 19, 2017 21:30 - CONCLUSION: 1. Bibasilar infiltrates with small bilateral effusions suggestive of atelectasis. 2. Increased interstitial markings bilaterally suggesting some mild pulmonary edema. 3. Central lobar emphysema throughout both lung cano. 4. Mild aneurysmal dilatation of the ascending thoracic aorta measuring 4.5 x 4.4 cm. No significant change compared to the prior study. Vinicio Bethea MD Carotid Artery Ultrasound 08/19/17 0000 Signed Impressions: Service Date/Time: Saturday, August 19, 2017 16:05 - CONCLUSION: 1. Minimal plaquing in both carotid systems. 2. No sonographic or Doppler findings of a hemodynamically significant stenosis. Edvin Guzman MD Assessment and Plan Assessment and Plan Assessment: 57yM POD 0 s/p re-do bioprosthetic AVR complicated by severe acute hypoxemia. Most likely due to intrinsic lung disease with possible volume overload vs. ARDS secondary to cardiopulmonary bypass. continue neuromuscular blockade and deep sedation. needs volume resuscitation and will use colloid for this to help prevent excess pulmonary edema. very critically ill. Active Problems: Acute hypoxic respiratory failure s/p re-do bioprosthetic AVR Lactic acidosis secondary to poor oxygen delivery Plan: - nimbex drip - versed drip for sedation - no weaning of mechanical ventilation overnight. - wean fio2 for goal spo2 > 94% - trend lactates - trend abgs - levophed for goal map > 65 mmHg. - close uop monitoring - 1L albumin iv, may need additional crystalloid. - close chest tube output monitoring - trend hgb. This patient was extensively discussed with Dr. Guerrero who was aware of the acute decompensation. Critical care time: 110 minutes, exclusive of separately billable procedures. Elie Doan MD Aug 24, 2017 21:55
[2017-08-24] MEDS: SODIUM CHLORIDE 0.9% FLUSH 10 ML FLUSH IV FLUSH SCH (22:45)
[2017-08-25] VITALS (21 sets, daily range): BP systolic 100–160; BP diastolic 55–92; PULSE 92–132; RESP 16–23; TEMP 97.6–98.7; O2SAT 95–99
[2017-08-25] MEDS: METOPROLOL TARTRATE 5 MG/5 ML VIAL IV PUSH PRN ×3 (00:57→13:46)
[2017-08-25] MEDS: ACETAMINOPHEN 1000 MG/100 ML 100 ML IV SCH ×3 (00:58→11:53)
[2017-08-25] MEDS: AMIODARONE 200 MG TAB PO SCH ×4 (00:59→21:02)
[2017-08-25] MEDS: SODIUM CHLOR 0.9% 1000 ML INJ 1,000 ML IV SCH ×4 (01:45→20:38)
[2017-08-25] MEDS: RESP: ALBUTEROL 2.5 MG/IPRATROPIUM 0.5 MG NEB (SCH) NEB ×4 (03:41→21:19)
[2017-08-25] MEDS: INSULIN REGULAR (IV INFUSION) 100 UNITS in SODIUM CHLORIDE 0.9% INJ 99 ML IV PRN (04:25)
--- NOTE | 2017-08-25 04:53 | RADRPT ---
EXAM DATE/TIME: 08/25/2017 04:12 [facility] COMPARISON: CHEST SINGLE AP, August 24, 2017, 18:43. INDICATIONS : Shortness of breath, possible pulmonary disease. MEDICAL HISTORY : Diabetes mellitus type II. Hypertension Chronic obstructive pulmonary disease. SURGICAL HISTORY : Coronary artery stent. CABG. AVR ENCOUNTER: Subsequent ACUITY: 2 days PAIN SCORE: 10/10 LOCATION: Bilateral chest FINDINGS: Improved aeration of the right lung base. Chest tube present, right jugular line, endotracheal tube a nd enteric tube are present. There is patchy basilar airspace disease. CONCLUSION: Improved aeration. Jabier Hyde MD on August 25, 2017 at 4:52 Board Certified Radiologist. This report was verified electronically.
[2017-08-25] MEDS: CISATRACURIUM INJ 100 MG in SODIUM CHLOR 0.9% 250 ML INJ 250 ML IV PRN (05:47)
[2017-08-25 05:57] LABS: HEMATOCRIT 35.9 % (39.0-51.0); HEMOGLOBIN 12.4 GM/DL (13.0-17.0); MEAN CELL VOLUME 98.7 FL (80.0-100.0); MEAN CORPUSCULAR HEMOGLOBIN 34.1 PG (27.0-34.0); MEAN CORPUSCULAR HGB CONC 34.6 % (32.0-36.0); PLATELET COUNT 86 TH/MM3 (150-450); RED BLOOD COUNT 3.63 MIL/MM3 (4.50-5.90); RED CELL DISTRIBUTION WIDTH 13.7 % (11.6-17.2); WHITE BLOOD COUNT 20.4 TH/MM3 (4.0-11.0)
[2017-08-25] MEDS: PANTOPRAZOLE SOD 40 MG DELAYED RELEASE TAB PO SCH (06:00)
[2017-08-25 06:27] LABS: CALCIUM 8.3 MG/DL (8.5-10.1); CREATININE 1.23 MG/DL (0.60-1.30); MAGNESIUM 2.2 MG/DL (1.5-2.5)
[2017-08-25] MEDS: ASPIRIN 81 MG CHEW TAB PO SCH (09:00)
[2017-08-25] MEDS: DIGOXIN 0.25 MG TAB PO SCH (09:01)
[2017-08-25] MEDS: SODIUM CHLORIDE 0.9% FLUSH 10 ML FLUSH IV FLUSH SCH ×2 (09:01→20:38)
[2017-08-25] MEDS: EPOPROSTENOL NEB SOLUTION 50 NG/KG/MIN 100 ML NEB SCH ×4 (09:44→16:45)
[2017-08-25] MEDS ORDERED: CALCIUM CHLORIDE INJ 1 GM in SODIUM CHLORIDE 0.9% INJ 100 ML IV PRN (11:00)
--- NOTE | 2017-08-25 11:08 | PD.CAR.PN ---
CVT Progress Note Subjective/Hospital Course: 57-year-old male with a past medical history significant for CAD status post AVR /CABG with a 25 [place] mechanical valve, atrial fibrillation anticoagulated on Eliquis, hypertension, diabetes mellitus, hyperlipidemia and COPD presents to the emergency department complaining of chest pain. The patient states his chest pain began last night and felt as though an elephant was sitting on his chest. He describes it as substernal and nonradiating. He endorses positive shortness of breath. He has had a cough productive of yellow sputum for approximately 3 weeks. He denies nausea vomiting. Denies fever/chills. Of note, the patient reports he has been out of his medications including his Cardizem and Eliquis for the past 3 days. He has been non-compliant with anticoagulation with resulting prosthetic valve malfunction requiring high-risk REDO sternotomy and REDO AVR/CABG. He also continues to smoke 1ppd cigarettes 08/23 scheduled for surgery in am no chest pain during the night 08/24 surgery: REDO sternotomy for REDO AVR with a 21 Trifecta tissue valve Right femoral arterial line placement SANTINO pump time 224min 3000cc crystalloid, 500cc cell saver, 750cc urine per Dr Doan CCM note Intraoperative events were complicated by technically difficult dissection. pump run was 3.5 hrs. The patient had normal biventricular function by intra-operative SANTINO and had no perivalvular leak or bioprosthetic valve stenosis at the conclusion of the case. The patient arrived to the CVICU intubated, initially instable condition. However, the patient became acutely hypoxic upon arrival to the cvicu. initial attempts to suction lavage the patient were unsuccessful at improvements. I was called to the bedside. the patient had equal and bilateral breath sounds with evidence of a pericardial friction rub, but no wheezing or rales. CXR demonstrated ett in satisfactory position, bilateral airspace disease consistent with possible early pulmonary edema. lasix 40mg iv x 1 without improvement. PEEP increased on the ventilator, again without any improvement. spo2 remained in the 70s. TTE was sufficient enough to rule out tamponade physiology and pericardial effusion , but was unable to rule out RV failure or intra-cardiac shunting. Serial ABG demonstrated rising lactate, most likely secondary to hypoxia and poor o2 delivery. STAT SANTINO demonstrated normal biventricular function, severely underfilled LV and RV. no evidence of intracardiac shunt by color flow, no pericardial effusion, no perivalvular leak. The patient was paralyzed and deeply sedated. patient was changed to pressure control mode of ventilation, and with recruitment maneuvers, as well as starting vasopressors to support cardiac function and improve perfusion pressures, spo2 began to rise > 90% on 100% fio2. pt off all pressors / remains paralyzed on Nimbex, TOF on 50% fio2 BP stablized, HR 110, prn lopressor for now, consider longer acting BB if remains stable appreciate CCM weaning of paralytics per [facility] Objective: GENERAL: pt paralyzed n nimbex, pupils 2mm SKIN: Warm and dry. prevena dressing to chest , jay wrap to right leg HEAD: Normocephalic. EYES: No scleral icterus. No injection or drainage. NECK: Supple, trachea midline. No JVD or lymphadenopathy. CARDIOVASCULAR: sinus tach Regular rhythm without murmurs, gallops, or rubs. RESPIRATORY: Breath sounds equal bilaterally. No accessory muscle use. chest tube to wall suction no air leak / drained 490cc/ 12 hrs / coarse bilateral breath sounds GASTROINTESTINAL: Abdomen soft, non-tender, nondistended. MUSCULOSKELETAL: No cyanosis, or edema. BACK: Nontender without obvious deformity. No CVA tenderness. Vital Signs Date Time Temp Pulse Resp B/P (MAP) Pulse Ox O2 Delivery O2 Flow Rate FiO2 08/25/17 08:47 99 50 08/25/17 08:06 97.6 08/25/17 08:04 50 08/25/17 07:34 131 08/25/17 07:30 97.6 131 16 129/82 (98) 98 137/81 (99) 08/25/17 07:25 97 Mechanical Ventilator 50 08/25/17 06:04 98 50 08/25/17 04:00 97.7 111 16 107/66 (80) 98 117/66 (83) 08/25/17 04:00 70 08/25/17 04:00 111 08/25/17 03:56 98 60 08/25/17 01:40 98 70 08/25/17 01:30 16 08/25/17 01:00 70 08/25/17 00:00 80 08/25/17 00:00 97.7 132 16 159/92 (114) 98 160/87 (111) 08/24/17 23:50 133 08/24/17 22:06 99 80 08/24/17 20:00 97.9 108 16 97 98/65 (76) 08/24/17 20:00 100 08/24/17 19:45 84 100 08/24/17 19:30 83 Mechanical Ventilator 100 08/24/17 19:08 78 08/24/17 19:00 83 100 08/24/17 18:16 97.8 90 20 87/50 (62) 87 82/46 (58) 08/24/17 18:15 100 08/24/17 18:15 87 Mechanical Ventilator 100 Labs: Laboratory Tests Test 08/25/17 05:15 White Blood Count 20.4 TH/MM3 (4.0-11.0) Red Blood Count 3.63 MIL/MM3 (4.50-5.90) Hemoglobin 12.4 GM/DL (13.0-17.0) Hematocrit 35.9 % (39.0-51.0) Mean Corpuscular Volume 98.7 FL (80.0-100.0) Mean Corpuscular Hemoglobin 34.1 PG (27.0-34.0) Mean Corpuscular Hemoglobin Concent 34.6 % (32.0-36.0) Red Cell Distribution Width 13.7 % (11.6-17.2) Platelet Count 86 TH/MM3 (150-450) Mean Platelet Volume 9.0 FL (7.0-11.0) Blood Urea Nitrogen 21 MG/DL (7-18) Creatinine 1.23 MG/DL (0.60-1.30) Random Glucose 141 MG/DL (74-106) Calcium Level 8.3 MG/DL (8.5-10.1) Magnesium Level 2.2 MG/DL (1.5-2.5) Sodium Level 140 MEQ/L (136-145) Potassium Level 4.2 MEQ/L (3.5-5.1) Chloride Level 103 MEQ/L (98-107) Carbon Dioxide Level 28.0 MEQ/L (21.0-32.0) Anion Gap 9 MEQ/L (5-15) Estimat Glomerular Filtration Rate 61 ML/MIN (>89) Result Diagram: 08/25/1751408/25/17514 (1) NSTEMI (non-ST elevated myocardial infarction) Plan: (2) HTN (hypertension) (3) CAD (coronary artery disease) (4) s/p Redo AVR Plan: on ASA, prn BB consider longer acting BB CCM following (5) Postoperative acute respiratory failure Plan: remains on paralytics weaning vent and paralyttics per CCM Problem Qualifiers (1) CAD (coronary artery disease): Qualified Codes: I25.110 - Atherosclerotic heart disease of [place] coronary artery with unstable angina pectoris Reba Smallwood Aug 25, 2017 11:08
--- NOTE | 2017-08-25 12:21 | HHI.CCPN ---
Subjective Remarks/Hospital Course Hospital Course: This is a 57yM with history of prior mechanical AVR with mechanical valve stenosis now POD 0 s/p re-do sternotomy and now bioprosthetic AVR. Intraoperative events were complicated by technically difficult dissection. pump run was 3.5 hrs. The patient had normal biventricular function by intra- operative SANTINO and had no perivalvular leak or bioprosthetic valve stenosis at the conclusion of the case. The patient arrived to the CVICU intubated, initially instable condition. However, the patient became acutely hypoxic upon arrival to the cvicu. initial attempts to suction lavage the patient were unsuccessful at improvements. I was called to the bedside. the patient had equal and bilateral breath sounds with evidence of a pericardial friction rub, but no wheezing or rales. CXR demonstrated ett in satisfactory position, bilateral airspace disease consistent with possible early pulmonary edema. We gave lasix 40mg iv x 1 without improvement. I increased the PEEP on the ventilator, again without any improvement. spo2 remained in the 70s. TTE was sufficient enough to rule out tamponade physiology and pericardial effusion, but was unable to rule out RV failure or intra-cardiac shunting. Serial ABG demonstrated rising lactate, most likely secondary to hypoxia and poor o2 delivery. STAT SANTINO demonstrated normal biventricular function, severely underfilled LV and RV. no evidence of intracardiac shunt by color flow, no pericardial effusion, no perivalvular leak. The patient was paralyzed and deeply sedated. patient was changed to pressure control mode of ventilation, and with recruitment maneuvers, as well as starting vasopressors to support cardiac function and improve perfusion pressures, spo2 began to rise > 90% on 100% fio2. Subjective: 08/25: hypoxia significantly improved. off vasopressors. remains paralyzed and deeply sedated. lactate mildly elevated, but clearing. uop adequate. chest tubes dry. Objective Vital Signs Date Time Temp Pulse Resp B/P (MAP) Pulse Ox O2 Delivery O2 Flow Rate FiO2 08/25/17 12:07 50 08/25/17 12:07 98.2 08/25/17 11:09 99 08/25/17 11:02 112 08/25/17 11:02 16 120/72 (88) 08/25/17 07:25 Mechanical Ventilator Intake and Output 08/25/17 08/25/17 08/26/17 08:00 16:00 00:00 Intake Total 1702 ml 200 ml Output Total 4220 ml Balance -2518 ml 200 ml Result Diagram: 08/25/17 0515 08/25/17 0515 Imaging Last Impressions Chest X-Ray 08/24/17 0000 Signed Impressions: Service Date/Time: Thursday, August 24, 2017 18:43 - CONCLUSION: Volume overload and the tip of the NG tube is in distal esophagus at the level of the gastroesophageal junction. Nilay Samuels MD Lower Extremity Ultrasound 08/19/17 0000 Signed Impressions: Service Date/Time: Saturday, August 19, 2017 16:33 - CONCLUSION: Venous mapping as above. The below knee greater saphenous vein on the left is not visualized possibly representing prior vein harvesting.. Edvin Guzman MD Chest CT 08/19/17 0000 Signed Impressions: Service Date/Time: Saturday, August 19, 2017 21:30 - CONCLUSION: 1. Bibasilar infiltrates with small bilateral effusions suggestive of atelectasis. 2. Increased interstitial markings bilaterally suggesting some mild pulmonary edema. 3. Central lobar emphysema throughout both lung cano. 4. Mild aneurysmal dilatation of the ascending thoracic aorta measuring 4.5 x 4.4 cm. No significant change compared to the prior study. Vinicio Bethea MD Carotid Artery Ultrasound 08/19/17 0000 Signed Impressions: Service Date/Time: Saturday, August 19, 2017 16:05 - CONCLUSION: 1. Minimal plaquing in both carotid systems. 2. No sonographic or Doppler findings of a hemodynamically significant stenosis. Edvin Guzman MD Objective Remarks gen: middle-aged male, lying in bed, paralyzed, deeply sedated. heent: pupils 2mm, reactive bilaterally. mucous membranes moist. neck: right IJ introducer sheath in place. no jvd. trachea midline. chest: equal chest rise. clear to auscultation. spo2 99% on fio2 40%, peep 5. cv: tachycardic rate, regular rhythm. sinus by tele. abd: soft, nontender, nondistended. no guarding. extr: no peripheral edema. distal pulses 2+. warm, well-perfused. neuro: RASS -5. deeply sedated. Procedures cardiac cath. A/P Assessment and Plan Assessment: 57yM POD 1 s/p re-do bioprosthetic AVR complicated by severe acute hypoxemia. Most likely due to intrinsic lung disease with possible volume overload vs. ARDS secondary to cardiopulmonary bypass. clinically improving. will use inhaled flolan to wean off neuromuscular blockade. would ideally like to diurese patient, but CVP remains 8-9, may not be ready for diuresis yet. remains critically ill and off-pathway. Active Problems: Acute hypoxic respiratory failure s/p re-do bioprosthetic AVR Lactic acidosis secondary to poor oxygen delivery- resolving. Plan: - d/c nimbex drip - use flolan to mitigate hypoxemia, improve V:Q matching. - versed drip for sedation - wean fio2 for goal spo2 > 94% - trend lactates - levophed for goal map > 65 mmHg. - close uop monitoring Critical care time: 33 minutes, exclusive of separately billable procedures. Elie Doan MD Aug 25, 2017 12:20
[2017-08-25] MEDS: DEXMEDETOMIDINE INJ 200 MCG in SODIUM CHLORIDE 0.9% INJ 50 ML IV PRN (13:37)
[2017-08-25] MEDS: METOPROLOL TARTRATE 25 MG TAB PO SCH ×2 (15:08→20:40)
[2017-08-25] MEDS ORDERED: FUROSEMIDE 40 MG/4 ML VIAL ONE (15:50)
--- NOTE | 2017-08-25 15:51 | EKG ---
Date Performed: 08/25/2017 Time Performed: 05:14:06 PTAGE: 57 years EKG: Sinus tachycardia Left axis deviation Inferior infarct - age undetermined Lateral ST-T [place] ges may be due to myocardial ischemia Inferior infarct is new since prior tracing Clinical correlatio n is recommended. Abnormal ECG PREVIOUS TRACING : 08/18/2017 19.14 DOCTOR: Santosh Knox Interpretating Date/Time 08/25/2017 15:50:23
[2017-08-25] MEDS ORDERED: FUROSEMIDE 20 MG/2 ML VIAL IV PUSH ONE (16:15)
[2017-08-25] MEDS: ATORVASTATIN 20 MG TAB PO SCH (20:40)
[2017-08-25] MEDS: oxyCODONE/ACETAMINOPHEN 5 MG/325 MG TAB PO PRN (20:48)
[2017-08-26] VITALS (16 sets, daily range): BP systolic 99–131; BP diastolic 53–71; PULSE 76–108; RESP 18–20; TEMP 97.5–98.7; O2SAT 91–98
[2017-08-26] MEDS: EPOPROSTENOL NEB SOLUTION 50 NG/KG/MIN 100 ML NEB SCH ×2 (00:06)
[2017-08-26] MEDS: RESP: ALBUTEROL 2.5 MG/IPRATROPIUM 0.5 MG NEB (SCH) NEB ×4 (03:33→22:49)
[2017-08-26 04:28] LABS: AUTOMATED NEUTROPHIL # 14.9 TH/MM3 (1.8-7.7); BASOPHIL % 0.1 % (0.0-2.0); EOSINOPHIL # 0.1 TH/MM3 (0-0.4); EOSINOPHIL % 0.3 % (0.0-4.0); HEMATOCRIT 30.5 % (39.0-51.0); HEMOGLOBIN 10.7 GM/DL (13.0-17.0); LYMPH % 8.4 % (9.0-44.0); LYMPHOCYTE # 1.6 TH/MM3 (1.0-4.8); MEAN CELL VOLUME 98.1 FL (80.0-100.0); MEAN CORPUSCULAR HEMOGLOBIN 34.5 PG (27.0-34.0); MEAN CORPUSCULAR HGB CONC 35.1 % (32.0-36.0); MEAN PLATELET VOLUME 9.3 FL (7.0-11.0); MONOCYTE # 2.3 TH/MM3 (0-0.9); NEUT % 79.2 % (16.0-70.0); PLATELET COUNT 95 TH/MM3 (150-450); RED BLOOD COUNT 3.11 MIL/MM3 (4.50-5.90); RED CELL DISTRIBUTION WIDTH 13.6 % (11.6-17.2); WHITE BLOOD COUNT 18.8 TH/MM3 (4.0-11.0)
[2017-08-26 04:44] LABS: INTERNATIONAL NORMALIZED RATIO 1.1 RATIO; PROTHROMBIN TIME - PATIENT 11.6 SEC (9.8-11.6)
[2017-08-26 04:56] LABS: ALBUMIN 2.9 GM/DL (3.4-5.0); AST (GOT) 126 U/L (15-37); BICARBONATE 30.2 MEQ/L (21.0-32.0); BLOOD UREA NITROGEN 27 MG/DL (7-18); CALCIUM 8.2 MG/DL (8.5-10.1); CHLORIDE 103 MEQ/L (98-107); CREATININE 0.96 MG/DL (0.60-1.30); GLOMERULAR FILTRATION RATE 81 ML/MIN (>89); GLUCOSE,RANDOM 107 MG/DL (74-106); MAGNESIUM 1.9 MG/DL (1.5-2.5); SODIUM (NA) 139 MEQ/L (136-145)
[2017-08-26 04:57] LABS: ALT (GPT) 47 U/L (12-78); PHOSPHORUS 2.6 MG/DL (2.5-4.9)
[2017-08-26 04:59] LABS: ALKALINE PHOSPHATASE 41 U/L (45-117); TOTAL PROTEIN 5.1 GM/DL (6.4-8.2)
[2017-08-26] MEDS: AMIODARONE 200 MG TAB PO SCH ×3 (05:38→21:32)
[2017-08-26] MEDS: PANTOPRAZOLE SOD 40 MG DELAYED RELEASE TAB PO SCH (05:38)
--- NOTE | 2017-08-26 05:46 | RADRPT ---
EXAM DATE/TIME: 08/26/2017 04:26 [facility] COMPARISON: CHEST SINGLE AP, August 25, 2017, 4:12. INDICATIONS : Shortness of breath. MEDICAL HISTORY : Diabetes mellitus type II. Hypertension Chronic obstructive pulmonary disease. SURGICAL HISTORY : Coronary artery stent. CABG. AVR ENCOUNTER: Subsequent ACUITY: 4 - 6 days PAIN SCORE: Non-responsive. LOCATION: chest FINDINGS: Right IJ line is present with tip overlapping the expected region of the SVC. Mediastinal drainage tu be is in place. Previously seen NG tube has been removed. Previously seen NG tube has been removed. C hest tube is present on the right side. No definite pneumothorax is seen for technique. There is mild haziness to both lung cano most likely pulmonary edema and a slight left lung base consolidation m ay be present. CONCLUSION: Mild pulmonary edema and questionable mild left lung base consolidation. Nilay Samuels MD on August 26, 2017 at 5:44 Board Certified Radiologist. This report was verified electronically.
[2017-08-26] MEDS: oxyCODONE/ACETAMINOPHEN 5 MG/325 MG TAB PO PRN ×6 (06:44→21:31)
[2017-08-26] MEDS: SODIUM CHLOR 0.9% 1000 ML INJ 1,000 ML IV SCH (07:45)
[2017-08-26] MEDS: ASPIRIN 81 MG CHEW TAB PO SCH (08:58)
[2017-08-26] MEDS: DIGOXIN 0.25 MG TAB PO SCH (08:58)
[2017-08-26] MEDS: SODIUM CHLORIDE 0.9% FLUSH 10 ML FLUSH IV FLUSH SCH ×2 (08:58→21:31)
[2017-08-26] MEDS: METOPROLOL TARTRATE 25 MG TAB PO SCH ×3 (08:58→18:13)
[2017-08-26] MEDS ORDERED: POTASSIUM CHLORIDE 20 MEQ CONTROLLED RELEASE TAB PO ONE ×2 (09:15→10:15)
[2017-08-26] MEDS ORDERED: ALPRAZolam 0.25 MG TAB PO PRN (09:30)
[2017-08-26] MEDS ORDERED: BISACODYL 10 MG SUPP RECTAL PRN (09:30)
[2017-08-26] MEDS ORDERED: GLUCAGON 1 MG/ML VIAL OTHER PRN (09:30)
[2017-08-26] MEDS ORDERED: SOD PHOSPHATE/SOD BIPHOSPHATE (ADULT) ENEMA 133ML RECTAL PRN (09:30)
[2017-08-26] MEDS ORDERED: DEXTROSE 50% IN WATER 50 ML VIAL(D50) IV PUSH PRN (09:30)
[2017-08-26] MEDS ORDERED: FUROSEMIDE 40 MG/4 ML VIAL IV PUSH ONE (10:00)
[2017-08-26] MEDS: DOCUSATE SODIUM 100 MG CAP PO SCH ×2 (10:00→21:31)
[2017-08-26] MEDS: INSULIN ASPART SUPPLEMENTAL SCALE SQ SCH ×3 (12:00→21:30)
--- NOTE | 2017-08-26 12:17 | HHI.CCPN ---
Subjective Remarks/Hospital Course Hospital Course: This is a 57yM with history of prior mechanical AVR with mechanical valve stenosis now POD 0 s/p re-do sternotomy and now bioprosthetic AVR. Intraoperative events were complicated by technically difficult dissection. pump run was 3.5 hrs. The patient had normal biventricular function by intra- operative SANTINO and had no perivalvular leak or bioprosthetic valve stenosis at the conclusion of the case. The patient arrived to the CVICU intubated, initially instable condition. However, the patient became acutely hypoxic upon arrival to the cvicu. initial attempts to suction lavage the patient were unsuccessful at improvements. I was called to the bedside. the patient had equal and bilateral breath sounds with evidence of a pericardial friction rub, but no wheezing or rales. CXR demonstrated ett in satisfactory position, bilateral airspace disease consistent with possible early pulmonary edema. We gave lasix 40mg iv x 1 without improvement. I increased the PEEP on the ventilator, again without any improvement. spo2 remained in the 70s. TTE was sufficient enough to rule out tamponade physiology and pericardial effusion, but was unable to rule out RV failure or intra-cardiac shunting. Serial ABG demonstrated rising lactate, most likely secondary to hypoxia and poor o2 delivery. STAT SANTINO demonstrated normal biventricular function, severely underfilled LV and RV. no evidence of intracardiac shunt by color flow, no pericardial effusion, no perivalvular leak. The patient was paralyzed and deeply sedated. patient was changed to pressure control mode of ventilation, and with recruitment maneuvers, as well as starting vasopressors to support cardiac function and improve perfusion pressures, spo2 began to rise > 90% on 100% fio2. Subjective: 08/25: hypoxia significantly improved. off vasopressors. remains paralyzed and deeply sedated. lactate mildly elevated, but clearing. uop adequate. chest tubes dry. 08/26: Extubated yesterday tolerating well. Sitting up in chair good oxygen saturation. WBC 18.8 Objective Vital Signs Date Time Temp Pulse Resp B/P (MAP) Pulse Ox O2 Delivery O2 Flow Rate FiO2 08/26/17 11:02 101 08/26/17 11:01 98.7 20 123/71 (88) 91 Arterial Line 08/26/17 10:05 Nasal Cannula 4.00 08/25/17 16:16 40 Intake and Output 08/26/17 08/26/1718 08:00 16:00 00:00 Intake Total 656.4 ml 104 ml Output Total 1190 ml Balance -533.6 ml 104 ml Result Diagram: 08/26/17 04008/26/17 040 Other Results Laboratory Tests Test 08/25/17 15:10 Blood Gas Puncture Site ART LINE Blood Gas Patient Temperature 98.6 Blood Gas HCO3 25 mmol/L (22-26) Blood Gas Base Excess 1.0 mmol/L (-2-2) Blood Gas Oxygen Saturation 96 % (90-100) Arterial Blood pH 7.44 (7.380-7.420) Arterial Blood Partial Pressure CO2 37 mmHg (38-42) Arterial Blood Partial Pressure O2 116 mmHg (61-120) Arterial Blood Oxygen Content 14.8 Vol % (12.0-20.0) Arterial Blood Carboxyhemoglobin 1.1 % (0-4) Arterial Blood Methemoglobin 1.3 % (0-2) Blood Gas Hemoglobin 10.8 G/DL (12.0-16.0) Oxygen Delivery Device VENTILATOR Blood Gas Ventilator Setting CPAP+5/PS5 Blood Gas Inspired Oxygen 40 % Imaging Last Impressions Chest X-Ray 08/24/17 0000 Signed Impressions: Service Date/Time: Thursday, August 24, 2017 18:43 - CONCLUSION: Volume overload and the tip of the NG tube is in distal esophagus at the level of the gastroesophageal junction. Nilay Samuels MD Lower Extremity Ultrasound 08/19/17 0000 Signed Impressions: Service Date/Time: Saturday, August 19, 2017 16:33 - CONCLUSION: Venous mapping as above. The below knee greater saphenous vein on the left is not visualized possibly representing prior vein harvesting.. Edvin Guzman MD Chest CT 08/19/17 0000 Signed Impressions: Service Date/Time: Saturday, August 19, 2017 21:30 - CONCLUSION: 1. Bibasilar infiltrates with small bilateral effusions suggestive of atelectasis. 2. Increased interstitial markings bilaterally suggesting some mild pulmonary edema. 3. Central lobar emphysema throughout both lung cano. 4. Mild aneurysmal dilatation of the ascending thoracic aorta measuring 4.5 x 4.4 cm. No significant change compared to the prior study. Vinicio Bethea MD Carotid Artery Ultrasound 08/19/17 0000 Signed Impressions: Service Date/Time: Saturday, August 19, 2017 16:05 - CONCLUSION: 1. Minimal plaquing in both carotid systems. 2. No sonographic or Doppler findings of a hemodynamically significant stenosis. Edvin Guzman MD Procedures cardiac cath. Objective Remarks gen: middle-aged male, sitting up in chair heent: pupils 2mm, reactive bilaterally. mucous membranes moist. neck: right IJ introducer sheath in place. no jvd. trachea midline. chest: equal chest rise. clear to auscultation. cv: regular rhythm. sinus by tele. abd: soft, nontender, nondistended. no guarding. extr: no peripheral edema. distal pulses 2+. warm, well-perfused. neuro: Awake alert oriented 3 no focal deficits A/P Assessment and Plan Assessment: 57yM POD 1 s/p re-do bioprosthetic AVR complicated by severe acute hypoxemia. Most likely due to intrinsic lung disease with possible volume overload vs lung derecruitment. Active Problems: Acute hypoxic respiratory failure s/p re-do bioprosthetic AVR Lactic acidosis secondary to poor oxygen delivery- resolving. Plan: -Titrate oxygen by nasal cannula to keep sat above 90% -Minimize sedation -Postop management per CT surgery -trend lactate, if clinically indicated -close uop monitoring Level 2 June Ibrahim MD Aug 26, 2017 12:17
--- NOTE | 2017-08-26 14:36 | PD.CAR.PN ---
CVT Progress Note Subjective/Hospital Course: 57-year-old male with a past medical history significant for CAD status post AVR /CABG with a [address] [place] mechanical valve, atrial fibrillation anticoagulated on Eliquis, hypertension, diabetes mellitus, hyperlipidemia and COPD presents to the emergency department complaining of chest pain. The patient states his chest pain began last night and felt as though an elephant was sitting on his chest. He describes it as substernal and nonradiating. He endorses positive shortness of breath. He has had a cough productive of yellow sputum for approximately 3 weeks. He denies nausea vomiting. Denies fever/chills. Of note, the patient reports he has been out of his medications including his Cardizem and Eliquis for the past 3 days. He has been non-compliant with anticoagulation with resulting prosthetic valve malfunction requiring high-risk REDO sternotomy and REDO AVR/CABG. He also continues to smoke 1ppd cigarettes 08/23 scheduled for surgery in am no chest pain during the night 08/24 surgery: REDO sternotomy for REDO AVR with a 21 [employer] tissue valve Right femoral arterial line placement SANTINO pump time 224min 3000cc crystalloid, 500cc cell saver, 750cc urine per Dr Doan CCM note Intraoperative events were complicated by technically difficult dissection. pump run was 3.5 hrs. The patient had normal biventricular function by intra-operative SANTINO and had no perivalvular leak or bioprosthetic valve stenosis at the conclusion of the case. The patient arrived to the CVICU intubated, initially instable condition. However, the patient became acutely hypoxic upon arrival to the cvicu. initial attempts to suction lavage the patient were unsuccessful at improvements. I was called to the bedside. the patient had equal and bilateral breath sounds with evidence of a pericardial friction rub, but no wheezing or rales. CXR demonstrated ett in satisfactory position, bilateral airspace disease consistent with possible early pulmonary edema. lasix 40mg iv x 1 without improvement. PEEP increased on the ventilator, again without any improvement. spo2 remained in the 70s. TTE was sufficient enough to rule out tamponade physiology and pericardial effusion , but was unable to rule out RV failure or intra-cardiac shunting. Serial ABG demonstrated rising lactate, most likely secondary to hypoxia and poor o2 delivery. STAT SANTINO demonstrated normal biventricular function, severely underfilled LV and RV. no evidence of intracardiac shunt by color flow, no pericardial effusion, no perivalvular leak. The patient was paralyzed and deeply sedated. patient was changed to pressure control mode of ventilation, and with recruitment maneuvers, as well as starting vasopressors to support cardiac function and improve perfusion pressures, spo2 began to rise > 90% on 100% fio2. 08/25 pt off all pressors / remains paralyzed on Nimbex, TOF on 50% fio2 BP stablized, HR 110, prn lopressor for now, consider longer acting BB if remains stable appreciate [facility] weaning of paralytics per [facility] 08/26 pt up in chair , pain controlled on 4 liter nasal cannula gentle diuresis / aggressive pulm toileting on scheduled BB , ASA, statin amiodarone PT consulted will eval to transfer pt to stepdown today appreciate [facility] Objective: GENERAL: A&O x 3 SKIN: Warm and dry. prevena dressing to chest , right leg EVH sited intact HEAD: Normocephalic. EYES: No scleral icterus. No injection or drainage. NECK: Supple, trachea midline. No JVD or lymphadenopathy. CARDIOVASCULAR: Regular rate and rhythm without murmurs, gallops, or + rubs. RESPIRATORY: diminished in bases few crackles Breath sounds equal bilaterally. No accessory muscle use. chest tube no air leak / drained 190cc/ 12 hrs GASTROINTESTINAL: Abdomen soft, non-tender, nondistended. MUSCULOSKELETAL: No cyanosis, or edema. BACK: Nontender without obvious deformity. No CVA tenderness. Vital Signs Date Time Temp Pulse Resp B/P (MAP) Pulse Ox O2 Delivery O2 Flow Rate FiO2 08/26/17 11:02 101 08/26/17 11:01 98.7 108 20 123/71 (88) 91 Arterial Line 08/26/17 10:22 20 08/26/17 10:05 93 Nasal Cannula 4.00 08/26/17 09:38 97 Nasal Cannula 4.00 08/26/17 07:55 20 08/26/17 07:24 98.7 108 20 109/63 (78) 95 131/71 (91) 08/26/17 07:23 105 08/26/17 07:19 96 Nasal Cannula 6.00 08/26/17 06:20 18 08/26/17 03:00 98.4 101 18 100/53 (69) 98 117/64 (81) 08/26/17 03:00 101 08/25/17 23:00 98.7 110 16 100/57 (71) 96 112/63 (79) 08/25/17 23:00 110 08/25/17 21:22 97 Nasal Cannula 5.00 08/25/17 19:00 96 Nasal Cannula 5.00 08/25/17 19:00 100 08/25/17 19:00 98.6 96 18 106/56 (73) 95 136/70 (92) 08/25/17 16:16 96 Aerosol Mask 40 08/25/17 15:45 98 Aerosol Mask 50 08/25/17 15:15 96 Aerosol Mask 6.00 50 08/25/17 15:15 98 Mask 6 50 08/25/17 15:03 103 08/25/17 15:02 98.1 92 23 99 105/55 (72) 08/25/17 14:54 98.1 Labs: Laboratory Tests Test 08/26/17 04:00 White Blood Count 18.8 TH/MM3 (4.0-11.0) Red Blood Count 3.11 MIL/MM3 (4.50-5.90) Hemoglobin 10.7 GM/DL (13.0-17.0) Hematocrit 30.5 % (39.0-51.0) Mean Corpuscular Volume 98.1 FL (80.0-100.0) Mean Corpuscular Hemoglobin 34.5 PG (27.0-34.0) Mean Corpuscular Hemoglobin Concent 35.1 % (32.0-36.0) Red Cell Distribution Width 13.6 % (11.6-17.2) Platelet Count 95 TH/MM3 (150-450) Mean Platelet Volume 9.3 FL (7.0-11.0) Neutrophils (%) (Auto) 79.2 % (16.0-70.0) Lymphocytes (%) (Auto) 8.4 % (9.0-44.0) Monocytes (%) (Auto) 12.0 % (0.0-8.0) Eosinophils (%) (Auto) 0.3 % (0.0-4.0) Basophils (%) (Auto) 0.1 % (0.0-2.0) Neutrophils # (Auto) 14.9 TH/MM3 (1.8-7.7) Lymphocytes # (Auto) 1.6 TH/MM3 (1.0-4.8) Monocytes # (Auto) 2.3 TH/MM3 (0-0.9) Eosinophils # (Auto) 0.1 TH/MM3 (0-0.4) Basophils # (Auto) 0.0 TH/MM3 (0-0.2) CBC Comment AUTO DIFF Differential Comment AUTO DIFF CONFIRMED Platelet Estimate LOW (NORMAL) Platelet Morphology Comment NORMAL (NORMAL) Prothrombin Time 11.6 SEC (9.8-11.6) Prothromb Time International Ratio 1.1 RATIO Blood Urea Nitrogen 27 MG/DL (7-18) Creatinine 0.96 MG/DL (0.60-1.30) Random Glucose 107 MG/DL (74-106) Total Protein 5.1 GM/DL (6.4-8.2) Albumin 2.9 GM/DL (3.4-5.0) Calcium Level 8.2 MG/DL (8.5-10.1) Phosphorus Level 2.6 MG/DL (2.5-4.9) Magnesium Level 1.9 MG/DL (1.5-2.5) Alkaline Phosphatase 41 U/L (45-117) Aspartate Amino Transf (AST/SGOT) 126 U/L (15-37) Alanine Aminotransferase (ALT/SGPT) 47 U/L (12-78) Total Bilirubin 1.0 MG/DL (0.2-1.0) Sodium Level 139 MEQ/L (136-145) Potassium Level 4.0 MEQ/L (3.5-5.1) Chloride Level 103 MEQ/L (98-107) Carbon Dioxide Level 30.2 MEQ/L (21.0-32.0) Anion Gap 6 MEQ/L (5-15) Estimat Glomerular Filtration Rate 81 ML/MIN (>89) Result Diagram: 08/26/1739908/26/17399 (1) NSTEMI (non-ST elevated myocardial infarction) Plan: (2) HTN (hypertension) (3) CAD (coronary artery disease) (4) s/p Redo AVR Plan: on ASA, BB ,statin , amiodarone PT/OOB pulm toileting CCM following (5) Postoperative acute respiratory failure Plan: resolved (6) Leukocytosis Plan: improving, no fevers (7) Postoperative respiratory failure Problem Qualifiers (1) CAD (coronary artery disease): Qualified Codes: I25.110 - Atherosclerotic heart disease of [place] coronary artery with unstable angina pectoris Reba Smallwood Aug 26, 2017 14:35
[2017-08-26] MEDS: SENNOSIDES 8.6 MG TAB PO SCH (21:31)
[2017-08-26] MEDS: ATORVASTATIN 20 MG TAB PO SCH (21:31)
[2017-08-27] VITALS (29 sets, daily range): BP systolic 93–127; BP diastolic 57–76; PULSE 74–99; RESP 18; TEMP 97.3–98.7; O2SAT 91–98
[2017-08-27] MEDS: oxyCODONE/ACETAMINOPHEN 5 MG/325 MG TAB PO PRN ×3 (04:29→22:43)
[2017-08-27 05:23] LABS: HEMATOCRIT 29.8 % (39.0-51.0); HEMOGLOBIN 10.3 GM/DL (13.0-17.0); MEAN CELL VOLUME 98.6 FL (80.0-100.0); MEAN CORPUSCULAR HGB CONC 34.5 % (32.0-36.0); MEAN PLATELET VOLUME 9.1 FL (7.0-11.0); PLATELET COUNT 111 TH/MM3 (150-450); RED BLOOD COUNT 3.02 MIL/MM3 (4.50-5.90); RED CELL DISTRIBUTION WIDTH 13.1 % (11.6-17.2); WHITE BLOOD COUNT 16.3 TH/MM3 (4.0-11.0)
[2017-08-27 05:43] LABS: ALBUMIN 2.8 GM/DL (3.4-5.0); AST (GOT) 84 U/L (15-37); BICARBONATE 29.8 MEQ/L (21.0-32.0); BLOOD UREA NITROGEN 21 MG/DL (7-18); CALCIUM 8.3 MG/DL (8.5-10.1); CHLORIDE 98 MEQ/L (98-107); CREATININE 0.87 MG/DL (0.60-1.30); GLOMERULAR FILTRATION RATE 91 ML/MIN (>89); GLUCOSE,RANDOM 121 MG/DL (74-106); MAGNESIUM 2.2 MG/DL (1.5-2.5); SODIUM (NA) 133 MEQ/L (136-145)
[2017-08-27 05:44] LABS: ALT (GPT) 45 U/L (12-78); PHOSPHORUS 2.6 MG/DL (2.5-4.9)
[2017-08-27 05:46] LABS: ALKALINE PHOSPHATASE 48 U/L (45-117); TOTAL BILIRUBIN ADULT 1.5 MG/DL (0.2-1.0); TOTAL PROTEIN 5.8 GM/DL (6.4-8.2)
[2017-08-27] MEDS: AMIODARONE 200 MG TAB PO SCH ×3 (07:15→22:37)
[2017-08-27] MEDS: PANTOPRAZOLE SOD 40 MG DELAYED RELEASE TAB PO SCH (07:15)
[2017-08-27] MEDS: INSULIN ASPART SUPPLEMENTAL SCALE SQ SCH ×4 (08:00→22:38)
[2017-08-27] MEDS: RESP: ALBUTEROL 2.5 MG/IPRATROPIUM 0.5 MG NEB (SCH) NEB ×3 (08:44→20:28)
[2017-08-27] MEDS: SODIUM CHLORIDE 0.9% FLUSH 10 ML FLUSH IV FLUSH SCH ×2 (09:00→22:36)
[2017-08-27] MEDS: POLYETHYLENE GLYCOL 17 GM PKG PO SCH (09:00)
[2017-08-27] MEDS: MULTIVITAMINS/MINERALS THERAPEUTIC TAB PO SCH (09:16)
[2017-08-27] MEDS: MAGNESIUM HYDROXIDE SUSP 30 ML CUP PO SCH (09:16)
[2017-08-27] MEDS: ASPIRIN 81 MG CHEW TAB PO SCH (09:16)
[2017-08-27] MEDS: DOCUSATE SODIUM 100 MG CAP PO SCH ×2 (09:17→21:00)
[2017-08-27] MEDS: DIGOXIN 0.25 MG TAB PO SCH (09:17)
[2017-08-27] MEDS: METOPROLOL TARTRATE 25 MG TAB PO SCH ×3 (09:17→17:41)
--- NOTE | 2017-08-27 10:47 | PD.CAR.PN ---
CVT Progress Note CVT: POD #: 3 Subjective/Hospital Course: 57-year-old male with a past medical history significant for CAD status post AVR /CABG with a 25 [place] mechanical valve, atrial fibrillation anticoagulated on Eliquis, hypertension, diabetes mellitus, hyperlipidemia and COPD presents to the emergency department complaining of chest pain. The patient states his chest pain began last night and felt as though an elephant was sitting on his chest. He describes it as substernal and nonradiating. He endorses positive shortness of breath. He has had a cough productive of yellow sputum for approximately 3 weeks. He denies nausea vomiting. Denies fever/chills. Of note, the patient reports he has been out of his medications including his Cardizem and Eliquis for the past 3 days. He has been non-compliant with anticoagulation with resulting prosthetic valve malfunction requiring high-risk REDO sternotomy and REDO AVR/CABG. He also continues to smoke 1ppd cigarettes 08/23 scheduled for surgery in am no chest pain during the night 08/24 surgery: REDO sternotomy for REDO AVR with a 21 Trifecta tissue valve Right femoral arterial line placement SANTINO pump time 224min 3000cc crystalloid, 500cc cell saver, 750cc urine per Dr Doan CCM note Intraoperative events were complicated by technically difficult dissection. pump run was 3.5 hrs. The patient had normal biventricular function by intra-operative SANTINO and had no perivalvular leak or bioprosthetic valve stenosis at the conclusion of the case. The patient arrived to the CVICU intubated, initially instable condition. However, the patient became acutely hypoxic upon arrival to the cvicu. initial attempts to suction lavage the patient were unsuccessful at improvements. I was called to the bedside. the patient had equal and bilateral breath sounds with evidence of a pericardial friction rub, but no wheezing or rales. CXR demonstrated ett in satisfactory position, bilateral airspace disease consistent with possible early pulmonary edema. lasix 40mg iv x 1 without improvement. PEEP increased on the ventilator, again without any improvement. spo2 remained in the 70s. TTE was sufficient enough to rule out tamponade physiology and pericardial effusion , but was unable to rule out RV failure or intra-cardiac shunting. Serial ABG demonstrated rising lactate, most likely secondary to hypoxia and poor o2 delivery. STAT SANTINO demonstrated normal biventricular function, severely underfilled LV and RV. no evidence of intracardiac shunt by color flow, no pericardial effusion, no perivalvular leak. The patient was paralyzed and deeply sedated. patient was changed to pressure control mode of ventilation, and with recruitment maneuvers, as well as starting vasopressors to support cardiac function and improve perfusion pressures, spo2 began to rise > 90% on 100% fio2. 08/25 pt off all pressors / remains paralyzed on Nimbex, TOF on 50% fio2 BP stablized, HR 110, prn lopressor for now, consider longer acting BB if remains stable appreciate [facility] weaning of paralytics per [facility] 08/26 pt up in chair , pain controlled on 4 liter nasal cannula gentle diuresis / aggressive pulm toileting on scheduled BB , ASA, statin amiodarone PT consulted will eval to transfer pt to stepdown today appreciate [facility] 08/27/17 Doing well, no complaints Objective: Vital Signs Date Time Temp Pulse Resp B/P (MAP) Pulse Ox O2 Delivery O2 Flow Rate FiO2 08/27/17 08:44 97 Nasal Cannula 3.00 08/27/17 06:00 89 08/27/17 05:03 77 08/27/17 04:05 90 08/27/17 03:19 98.7 96 18 111/63 (79) 91 08/27/17 03:04 91 08/27/17 02:00 77 08/27/17 01:00 83 08/27/17 00:00 78 08/26/17 23:18 98.5 80 18 99/55 (70) 96 08/26/17 23:00 81 08/26/17 22:55 95 Nasal Cannula 3.00 08/26/17 22:00 76 08/26/17 21:00 82 08/26/17 20:00 80 08/26/17 19:40 93 Nasal Cannula 3.00 08/26/17 19:40 98.2 90 18 109/63 (78) 93 08/26/17 19:00 90 08/26/17 16:20 18 08/26/17 15:05 95 08/26/17 15:04 97.5 95 20 126/63 (84) 91 08/26/17 11:02 101 08/26/17 11:01 98.7 108 20 123/71 (88) 91 Arterial Line Labs: Laboratory Tests Test 08/27/17 04:45 White Blood Count 16.3 TH/MM3 (4.0-11.0) Red Blood Count 3.02 MIL/MM3 (4.50-5.90) Hemoglobin 10.3 GM/DL (13.0-17.0) Hematocrit 29.8 % (39.0-51.0) Mean Corpuscular Volume 98.6 FL (80.0-100.0) Mean Corpuscular Hemoglobin 34.0 PG (27.0-34.0) Mean Corpuscular Hemoglobin Concent 34.5 % (32.0-36.0) Red Cell Distribution Width 13.1 % (11.6-17.2) Platelet Count 111 TH/MM3 (150-450) Mean Platelet Volume 9.1 FL (7.0-11.0) Blood Urea Nitrogen 21 MG/DL (7-18) Creatinine 0.87 MG/DL (0.60-1.30) Random Glucose 121 MG/DL (74-106) Total Protein 5.8 GM/DL (6.4-8.2) Albumin 2.8 GM/DL (3.4-5.0) Calcium Level 8.3 MG/DL (8.5-10.1) Phosphorus Level 2.6 MG/DL (2.5-4.9) Magnesium Level 2.2 MG/DL (1.5-2.5) Alkaline Phosphatase 48 U/L (45-117) Aspartate Amino Transf (AST/SGOT) 84 U/L (15-37) Alanine Aminotransferase (ALT/SGPT) 45 U/L (12-78) Total Bilirubin 1.5 MG/DL (0.2-1.0) Sodium Level 133 MEQ/L (136-145) Potassium Level 4.1 MEQ/L (3.5-5.1) Chloride Level 98 MEQ/L (98-107) Carbon Dioxide Level 29.8 MEQ/L (21.0-32.0) Anion Gap 5 MEQ/L (5-15) Estimat Glomerular Filtration Rate 91 ML/MIN (>89) Result Diagram: 08/27/1744408/27/17444 Cardiovascular: RRR Telemetry: NSR Pulmonary: CTA GI/: NABS, NT Incision: dry and intact CT: 125ml charted Plan: Remove chest tubes Diurese Sup K Start plavix Wean O2 Ambulate/ up to chair Stim BM (1) NSTEMI (non-ST elevated myocardial infarction) Plan: (2) HTN (hypertension) (3) CAD (coronary artery disease) (4) s/p Redo AVR Plan: on ASA, BB ,statin , amiodarone PT/OOB pulm toileting CCM following (5) Postoperative acute respiratory failure Plan: resolved (6) Leukocytosis Plan: improving, no fevers (7) Postoperative respiratory failure Problem Qualifiers (1) CAD (coronary artery disease): Qualified Codes: I25.110 - Atherosclerotic heart disease of [place] coronary artery with unstable angina pectoris Annalee Guerrero MD Aug 27, 2017 10:47
[2017-08-27] MEDS: POTASSIUM CHLORIDE 10 MEQ CONTROLLED RELEASE TAB PO SCH ×2 (11:45→22:35)
[2017-08-27] MEDS: CLOPIDOGREL 75 MG TAB PO SCH (11:45)
[2017-08-27] MEDS: FUROSEMIDE 40 MG/4 ML VIAL IV PUSH SCH (17:41)
[2017-08-27] MEDS: SENNOSIDES 8.6 MG TAB PO SCH (21:00)
[2017-08-27] MEDS: ATORVASTATIN 20 MG TAB PO SCH (22:36)
[2017-08-28] VITALS (23 sets, daily range): BP systolic 97–142; BP diastolic 56–69; PULSE 70–102; RESP 16–18; TEMP 98.1–98.7; O2SAT 92–97
[2017-08-28] MEDS: PANTOPRAZOLE SOD 40 MG DELAYED RELEASE TAB PO SCH (05:46)
[2017-08-28] MEDS: AMIODARONE 200 MG TAB PO SCH ×3 (05:46→20:10)
[2017-08-28] MEDS: INSULIN ASPART SUPPLEMENTAL SCALE SQ SCH ×4 (08:00→20:10)
[2017-08-28] MEDS: RESP: ALBUTEROL 2.5 MG/IPRATROPIUM 0.5 MG NEB (SCH) NEB (08:37)
[2017-08-28] MEDS: POLYETHYLENE GLYCOL 17 GM PKG PO SCH (09:00)
[2017-08-28] MEDS: DOCUSATE SODIUM 100 MG CAP PO SCH ×2 (09:00→20:52)
[2017-08-28] MEDS: MAGNESIUM HYDROXIDE SUSP 30 ML CUP PO SCH (09:00)
[2017-08-28] MEDS: MULTIVITAMINS/MINERALS THERAPEUTIC TAB PO SCH (09:33)
[2017-08-28] MEDS: ASPIRIN 81 MG CHEW TAB PO SCH (09:33)
[2017-08-28] MEDS: METOPROLOL TARTRATE 25 MG TAB PO SCH ×3 (09:34→17:19)
[2017-08-28] MEDS: DIGOXIN 0.25 MG TAB PO SCH (09:35)
[2017-08-28] MEDS: POTASSIUM CHLORIDE 10 MEQ CONTROLLED RELEASE TAB PO SCH ×2 (09:35→20:09)
[2017-08-28] MEDS: SODIUM CHLORIDE 0.9% FLUSH 10 ML FLUSH IV FLUSH SCH ×2 (09:36→20:52)
[2017-08-28] MEDS: FUROSEMIDE 40 MG/4 ML VIAL IV PUSH SCH ×2 (09:37→17:19)
[2017-08-28] MEDS: CLOPIDOGREL 75 MG TAB PO SCH (09:38)
--- NOTE | 2017-08-28 11:35 | PD.CAR.PN ---
CVT Progress Note CVT: POD #: 4 Subjective/Hospital Course: 57-year-old male with a past medical history significant for CAD status post AVR /CABG with a 25 [address] [place] mechanical valve, atrial fibrillation anticoagulated on Eliquis, hypertension, diabetes mellitus, hyperlipidemia and COPD presents to the emergency department complaining of chest pain. The patient states his chest pain began last night and felt as though an elephant was sitting on his chest. He describes it as substernal and nonradiating. He endorses positive shortness of breath. He has had a cough productive of yellow sputum for approximately 3 weeks. He denies nausea vomiting. Denies fever/chills. Of note, the patient reports he has been out of his medications including his Cardizem and Eliquis for the past 3 days. He has been non-compliant with anticoagulation with resulting prosthetic valve malfunction requiring high-risk REDO sternotomy and REDO AVR/CABG. He also continues to smoke 1ppd cigarettes 08/23 scheduled for surgery in am no chest pain during the night 08/24 surgery: REDO sternotomy for REDO AVR with a 21 Trifecta tissue valve Right femoral arterial line placement SANTINO pump time 224min 3000cc crystalloid, 500cc cell saver, 750cc urine per Dr Doan CCM note Intraoperative events were complicated by technically difficult dissection. pump run was 3.5 hrs. The patient had normal biventricular function by intra-operative SANTINO and had no perivalvular leak or bioprosthetic valve stenosis at the conclusion of the case. The patient arrived to the CVICU intubated, initially instable condition. However, the patient became acutely hypoxic upon arrival to the cvicu. initial attempts to suction lavage the patient were unsuccessful at improvements. I was called to the bedside. the patient had equal and bilateral breath sounds with evidence of a pericardial friction rub, but no wheezing or rales. CXR demonstrated ett in satisfactory position, bilateral airspace disease consistent with possible early pulmonary edema. lasix 40mg iv x 1 without improvement. PEEP increased on the ventilator, again without any improvement. spo2 remained in the 70s. TTE was sufficient enough to rule out tamponade physiology and pericardial effusion , but was unable to rule out RV failure or intra-cardiac shunting. Serial ABG demonstrated rising lactate, most likely secondary to hypoxia and poor o2 delivery. STAT SANTINO demonstrated normal biventricular function, severely underfilled LV and RV. no evidence of intracardiac shunt by color flow, no pericardial effusion, no perivalvular leak. The patient was paralyzed and deeply sedated. patient was changed to pressure control mode of ventilation, and with recruitment maneuvers, as well as starting vasopressors to support cardiac function and improve perfusion pressures, spo2 began to rise > 90% on 100% fio2. 08/25 pt off all pressors / remains paralyzed on Nimbex, TOF on 50% fio2 BP stablized, HR 110, prn lopressor for now, consider longer acting BB if remains stable appreciate [facility] weaning of paralytics per [facility] 08/26 pt up in chair , pain controlled on 4 liter nasal cannula gentle diuresis / aggressive pulm toileting on scheduled BB , ASA, statin amiodarone PT consulted will eval to transfer pt to stepdown today appreciate [facility] 08/27/17 Doing well, no complaints 08/28/17 No complaints, doing well on 2 liters NC Objective: Vital Signs Date Time Temp Pulse Resp B/P (MAP) Pulse Ox O2 Delivery O2 Flow Rate FiO2 08/28/17 08:38 97 Nasal Cannula 2.00 08/28/17 06:00 83 08/28/17 05:00 72 08/28/17 04:00 98.1 80 18 142/69 (93) 92 08/28/17 04:00 70 08/28/17 03:00 70 08/28/17 02:00 84 08/28/17 01:00 72 08/28/17 00:00 74 08/27/17 23:00 97.3 78 18 100/58 (72) 94 08/27/17 23:00 80 08/27/17 22:00 80 08/27/17 21:07 94 Nasal Cannula 3.00 08/27/17 21:00 80 08/27/17 20:28 98 Nasal Cannula 2.00 08/27/17 20:00 97.3 84 18 106/60 (75) 94 08/27/17 20:00 80 08/27/17 19:00 83 08/27/17 18:01 80 08/27/17 17:00 78 08/27/17 16:00 74 08/27/17 15:01 94 08/27/17 15:01 97.9 82 18 127/65 (85) 91 08/27/17 14:00 88 2/17/18 13:01 81 08/27/17 12:00 76 Result Diagram: 08/27/17 0445 08/27/17 0445 Cardiovascular: RRR Telemetry: NSR Pulmonary: CTA GI/: NABS, NT Incision: dry and intact Plan: Diurese Encourage ambulation Stim BM CXR in AM Plan D/C tomorrow (1) NSTEMI (non-ST elevated myocardial infarction) Plan: (2) HTN (hypertension) (3) CAD (coronary artery disease) (4) s/p Redo AVR Plan: on ASA, BB ,statin , amiodarone PT/OOB pulm toileting CCM following (5) Postoperative acute respiratory failure Plan: resolved (6) Leukocytosis Plan: improving, no fevers (7) Postoperative respiratory failure Problem Qualifiers (1) CAD (coronary artery disease): Qualified Codes: I25.110 - Atherosclerotic heart disease of [place] coronary artery with unstable angina pectoris Annalee Guerrero MD Aug 28, 2017 11:34
[2017-08-28] MEDS: oxyCODONE/ACETAMINOPHEN 5 MG/325 MG TAB PO PRN ×2 (12:27→23:08)
[2017-08-28] MEDS: ATORVASTATIN 20 MG TAB PO SCH (20:09)
[2017-08-28] MEDS: SENNOSIDES 8.6 MG TAB PO SCH (20:53)
[2017-08-29] VITALS (16 sets, daily range): BP systolic 106–126; BP diastolic 67–68; PULSE 72–94; RESP 20; TEMP 97.8–98.2; O2SAT 92–95
--- NOTE | 2017-08-29 04:49 | RADRPT ---
EXAM DATE/TIME: 08/29/2017 04:00 [facility] COMPARISON: CHEST SINGLE AP, August 26, 2017, 4:26. INDICATIONS : Shortness of breath, possible pneumothorax. Interval removal of right-sided chest tube. MEDICAL HISTORY : Diabetes mellitus type II. Hypertension Chronic obstructive pulmonary disease. SURGICAL HISTORY : Coronary artery stent. CABG. AVR ENCOUNTER: Subsequent ACUITY: 1 week PAIN SCORE: 0/10 LOCATION: Bilateral chest FINDINGS: A single AP semierect view of the chest was obtained and demonstrates interval removal of the right-s ided chest tube and mediastinal chest tube with no pneumothorax. The previous noted right internal ju gular central venous line has been removed as well. The patient is status post median sternotomy. The heart size remains prominent. Mild hazy opacity is present at the lung bases left greater than right . The left costophrenic angle appears mildly blunted without change. CONCLUSION: 1. Interval removal of right internal jugular central venous line. 2. Interval removal of right-sided chest tube and mediastinal chest tube no pneumothorax. 3. Patchy opacity at the lung bases left greater than right with probable small left effusion. Willian Rai MD on August 29, 2017 at 4:46 Board Certified Radiologist. This report was verified electronically.
[2017-08-29] MEDS: AMIODARONE 200 MG TAB PO SCH ×2 (05:34→12:57)
[2017-08-29] MEDS: PANTOPRAZOLE SOD 40 MG DELAYED RELEASE TAB PO SCH (05:34)
[2017-08-29] MEDS: oxyCODONE/ACETAMINOPHEN 5 MG/325 MG TAB PO PRN (05:34)
[2017-08-29] MEDS: INSULIN ASPART SUPPLEMENTAL SCALE SQ SCH ×2 (08:00→12:00)
[2017-08-29] MEDS: MAGNESIUM HYDROXIDE SUSP 30 ML CUP PO SCH (09:00)
[2017-08-29] MEDS: MULTIVITAMINS/MINERALS THERAPEUTIC TAB PO SCH (09:00)
[2017-08-29] MEDS: ASPIRIN 81 MG CHEW TAB PO SCH (09:00)
[2017-08-29] MEDS: SODIUM CHLORIDE 0.9% FLUSH 10 ML FLUSH IV FLUSH SCH (09:00)
[2017-08-29] MEDS: FUROSEMIDE 40 MG/4 ML VIAL IV PUSH SCH (09:00)
[2017-08-29] MEDS: POLYETHYLENE GLYCOL 17 GM PKG PO SCH (09:00)
[2017-08-29] MEDS: CLOPIDOGREL 75 MG TAB PO SCH (09:01)
[2017-08-29] MEDS: METOPROLOL TARTRATE 25 MG TAB PO SCH ×2 (09:01→12:57)
[2017-08-29] MEDS: DOCUSATE SODIUM 100 MG CAP PO SCH (09:01)
[2017-08-29] MEDS: POTASSIUM CHLORIDE 10 MEQ CONTROLLED RELEASE TAB PO SCH (09:01)
[2017-08-29] MEDS ORDERED: PLAV75TA29 PO (13:31)
[2017-08-29] MEDS ORDERED: METO25TA3 PO (13:31)
[2017-08-29] MEDS ORDERED: FURO1TAB60 PO (13:31)
[2017-08-29] MEDS ORDERED: POTA-163 PO (13:31)
[2017-08-29] MEDS ORDERED: AMIO200T PO (13:31)
[2017-08-29] MEDS ORDERED: THERM PO (13:31)
[2017-08-29] MEDS ORDERED: OXYC1TAB63 PO (13:31)
[2017-08-29] MEDS ORDERED: DOCU1CAP39 PO (13:31)
--- NOTE | 2017-08-29 13:44 | HHI.DS ---
Discharge Summary Admission Date Aug 18, 2017 at 02:34 Discharge Date: Aug 29, 2017 Admitting Diagnosis nstemi (1) hx AVR Diagnosis: Principal (2) s/p Redo AVR Diagnosis: Secondary (3) CAD (coronary artery disease) Diagnosis: Principal ICD Codes: I25.10 - Coronary artery disease Status: Acute (4) Aortic valve insufficiency Diagnosis: [place] ICD Codes: I35.1 - Nonrheumatic aortic (valve) insufficiency Procedures REDO sternotomy for REDO AVR with a 21 Trifecta tissue valve 08/24 Right femoral arterial line placement Brief History Subjective/Hospital Course: 57-year-old male with a past medical history significant for CAD status post AVR /CABG with a 25 [address] [place] mechanical valve, atrial fibrillation anticoagulated on Eliquis, hypertension, diabetes mellitus, hyperlipidemia and COPD presents to the emergency department complaining of chest pain. The patient states his chest pain began last night and felt as though an elephant was sitting on his chest. He describes it as substernal and nonradiating. He endorses positive shortness of breath. He has had a cough productive of yellow sputum for approximately 3 weeks. He denies nausea vomiting. Denies fever/chills. Of note, the patient reports he has been out of his medications including his Cardizem and Eliquis for the past 3 days. He has been non-compliant with anticoagulation with resulting prosthetic valve malfunction requiring high-risk REDO sternotomy and REDO AVR/CABG. He also continues to smoke 1ppd cigarettes 08/23 scheduled for surgery in am no chest pain during the night 08/24 CBC/BMP: 08/27/17 0445 08/27/17 0445 Significant Findings Laboratory Tests Test 08/27/17 04:45 White Blood Count 16.3 TH/MM3 (4.0-11.0) Red Blood Count 3.02 MIL/MM3 (4.50-5.90) Hemoglobin 10.3 GM/DL (13.0-17.0) Hematocrit 29.8 % (39.0-51.0) Platelet Count 111 TH/MM3 (150-450) Blood Urea Nitrogen 21 MG/DL (7-18) Random Glucose 121 MG/DL (74-106) Total Protein 5.8 GM/DL (6.4-8.2) Albumin 2.8 GM/DL (3.4-5.0) Calcium Level 8.3 MG/DL (8.5-10.1) Aspartate Amino Transf (AST/SGOT) 84 U/L (15-37) Total Bilirubin 1.5 MG/DL (0.2-1.0) Sodium Level 133 MEQ/L (136-145) Imaging Last Impressions Chest X-Ray 08/29/17 0600 Signed Impressions: Service Date/Time: Tuesday, August 29, 2017 04:00 - CONCLUSION: 1. Interval removal of right internal jugular central venous line. 2. Interval removal of right-sided chest tube and mediastinal chest tube no pneumothorax. 3. Patchy opacity at the lung bases left greater than right with probable small left effusion. Willian Rai MD Lower Extremity Ultrasound 08/19/17 0000 Signed Impressions: Service Date/Time: Saturday, August 19, 2017 16:33 - CONCLUSION: Venous mapping as above. The below knee greater saphenous vein on the left is not visualized possibly representing prior vein harvesting.. Edvin Guzman MD Chest CT 08/19/17 0000 Signed Impressions: Service Date/Time: Saturday, August 19, 2017 21:30 - CONCLUSION: 1. Bibasilar infiltrates with small bilateral effusions suggestive of atelectasis. 2. Increased interstitial markings bilaterally suggesting some mild pulmonary edema. 3. Central lobar emphysema throughout both lung cano. 4. Mild aneurysmal dilatation of the ascending thoracic aorta measuring 4.5 x 4.4 cm. No significant change compared to the prior study. Vinicio Bethea MD Carotid Artery Ultrasound 08/19/17 0000 Signed Impressions: Service Date/Time: Saturday, August 19, 2017 16:05 - CONCLUSION: 1. Minimal plaquing in both carotid systems. 2. No sonographic or Doppler findings of a hemodynamically significant stenosis. Edvin Guzman MD PE at Discharge GENERAL: A&O x 3 SKIN: Warm and dry. prevena dressing to chest, incision intact left leg HEAD: Normocephalic. EYES: No scleral icterus. No injection or drainage. NECK: Supple, trachea midline. No JVD or lymphadenopathy. CARDIOVASCULAR: Regular rate and rhythm without murmurs, gallops, or rubs. mild lower ext edema RESPIRATORY: Breath sounds equal bilaterally. No accessory muscle use. diminished in bases GASTROINTESTINAL: Abdomen soft, non-tender, nondistended. MUSCULOSKELETAL: No cyanosis, or edema. BACK: Nontender without obvious deformity. No CVA tenderness. Hospital Course surgery: REDO sternotomy for REDO AVR with a 21 Trifecta tissue valve Right femoral arterial line placement SANTINO pump time 224min 3000cc crystalloid, 500cc cell saver, 750cc urine per Dr Doan CCM note Intraoperative events were complicated by technically difficult dissection. pump run was 3.5 hrs. The patient had normal biventricular function by intra-operative SANTINO and had no perivalvular leak or bioprosthetic valve stenosis at the conclusion of the case. The patient arrived to the CVICU intubated, initially instable condition. However, the patient became acutely hypoxic upon arrival to the cvicu. initial attempts to suction lavage the patient were unsuccessful at improvements. I was called to the bedside. the patient had equal and bilateral breath sounds with evidence of a pericardial friction rub, but no wheezing or rales. CXR demonstrated ett in satisfactory position, bilateral airspace disease consistent with possible early pulmonary edema. lasix 40mg iv x 1 without improvement. PEEP increased on the ventilator, again without any improvement. spo2 remained in the 70s. TTE was sufficient enough to rule out tamponade physiology and pericardial effusion , but was unable to rule out RV failure or intra-cardiac shunting. Serial ABG demonstrated rising lactate, most likely secondary to hypoxia and poor o2 delivery. STAT SANTINO demonstrated normal biventricular function, severely underfilled LV and RV. no evidence of intracardiac shunt by color flow, no pericardial effusion, no perivalvular leak. The patient was paralyzed and deeply sedated. patient was changed to pressure control mode of ventilation, and with recruitment maneuvers, as well as starting vasopressors to support cardiac function and improve perfusion pressures, spo2 began to rise > 90% on 100% fio2. Pt Condition on Discharge: Good Discharge Disposition: Disch w/ Home Health Serv Discharge Instructions DIET: Follow Instructions for: Heart Healthy Diet, Low Sodium Diet Activities you can perform: Full Weight Bearing, Shower Only-No Bath Activities to avoid: Strenuous Activity, Driving Additional Activity Instructio: no lifting > 8 lbs or gallon of milk Follow up Referrals: Cardiology - 4 Weeks with William Villagran MD PCP Follow-up - 2 Weeks with Yury Garcia D.o. Surgical - 2 Weeks with Reba Smallwood New Orders: 2D ECHO - 2 Weeks CBC NO DIFF - 2 Weeks COMP MET PROF (CMP) - 2 Weeks X-RAY CHEST PA & LAT - 2 Weeks New Medications: Furosemide (Lasix) 40 Mg Tab 40 MG PO DAILY for edema for 7 Days, #7 TAB 1 Refill Potassium Chloride ER (Potassium Chloride ER) 20 Meq Tab 20 MEQ PO DAILY for Electrolyte Replacement, #7 TAB 1 Refill Amiodarone (Amiodarone) 200 Mg Tab 400 MG PO Q12HR for heart rhythm, #32 TAB 400mg bid x 3 days, then 200mg bid x 3 days , then 200mg daily x 2 weeks Clopidogrel (Plavix) 75 Mg Tab 75 MG PO DAILY for Blood Clot Prevention, #30 TAB 2 Refills Docusate Sodium (Dok) 100 Mg Cap 100 MG PO BID for Constipation, #60 CAP 0 Refills Metoprolol Tartrate (Metoprolol Tartrate) 25 Mg Tab 50 MG PO BID for Blood Pressure Management, #30 TAB 2 Refills Multiple Vitamins W/ Minerals (Thera M Plus) 1 Tab 1 TAB PO DAILY for multi vitamin, #30 TAB 2 Refills Oxycodone HCl/Acetaminophen (Oxycodone-Acetaminophen 5-325) 5 Mg-325 Mg Tablet 1 TAB PO Q4H PRN for PAIN SCALE 1 TO 5, #40 TAB 0 Refills Continued Medications: Aspirin (Aspirin Low Dose) 81 Mg Chew 81 MG CHEW DAILY, TAB 0 Refills Atorvastatin (Lipitor) 20 Mg Tab 20 MG PO HS for Cholesterol Management, #30 TAB 0 Refills Metformin ER (Metformin ER) 500 Mg Tab 500 MG PO DAILY for 90 Days, TAB Discontinued Medications: Apixaban (Eliquis) 5 Mg Tab 5 MG PO BID for Blood Clot Prevention, #60 TAB 0 Refills Digoxin (Digoxin) 0.25 Mg Tab 0.25 MG PO DAILY for Regulate Heart Beat, #30 TAB 0 Refills Diltiazem HCl Extended Release (Diltiazem HCl) 360 Mg Cap 240 MG MT DAILY for 90 Days, TAB Metoprolol Tartrate (Lopressor) 100 Mg Tab 100 MG PO BID for atrial fib, #62 TAB Reba Smallwood Aug 29, 2017 13:44
== END 2017-08-29 15:16 | disposition home health service (06) | DRG 216 ==
LOC: NEPC 23:24 → NEDA 08-18 02:34 → NEDH 08-18 06:26 → HCIS 08-18 12:10 → HCVI 08-23 19:00 → HCPC 08-26 18:50
PROVIDERS: ADMIT Thoracic Surgery (Cardiothoracic Vascular Surgery); ATTEND Thoracic Surgery (Cardiothoracic Vascular Surgery)
PROC: B2111ZZ Fluoroscopy of Multiple Coronary Arteries using Low Osmolar Contrast (ICD-10-PCS; 2017-08-19)
PROC: B2181ZZ Fluoroscopy of Left Internal Mammary Bypass Graft using Low Osmolar Contrast (ICD-10-PCS; 2017-08-19)
PROC: B2121ZZ Fluoroscopy of Single Coronary Artery Bypass Graft using Low Osmolar Contrast (ICD-10-PCS; 2017-08-19)
PROC: B3101ZZ Fluoroscopy of Thoracic Aorta using Low Osmolar Contrast (ICD-10-PCS; 2017-08-19)
PROC: 4A023N7 Measurement of Cardiac Sampling and Pressure, Left Heart, Percutaneous Approach (ICD-10-PCS; 2017-08-19)
PROC: 04HY32Z Insertion of Monitoring Device into Lower Artery, Percutaneous Approach (ICD-10-PCS; 2017-08-24)
PROC: 5A1221Z Performance of Cardiac Output, Continuous (ICD-10-PCS; 2017-08-24)
PROC: B246ZZ4 Ultrasonography of Right and Left Heart, Transesophageal (ICD-10-PCS; 2017-08-24)
PROC: B246ZZZ Ultrasonography of Right and Left Heart (ICD-10-PCS; 2017-08-24)
PROC: 02RF08Z Replacement of Aortic Valve with Zooplastic Tissue, Open Approach (ICD-10-PCS; principal; 2017-08-24 07:23)
PROC: 0PN Upper Bones, Release (ICD-10-PCS; 2017-08-24 07:23)
DX: I21.4 Non-ST elevation (NSTEMI) myocardial infarction (principal); J98.59 Other diseases of mediastinum, not elsewhere classified; J95.821 Acute postprocedural respiratory failure; I11.0 Hypertensive heart disease with heart failure; I50.9 Heart failure, unspecified; T82.867A Thrombosis due to cardiac prosthetic devices, implants and grafts, initial encounter; E87.2 Acidosis; I35.1 Nonrheumatic aortic (valve) insufficiency; I48.0 Paroxysmal atrial fibrillation; I25.110 Atherosclerotic heart disease of native coronary artery with unstable angina pectoris; I25.700 Atherosclerosis of coronary artery bypass graft(s), unspecified, with unstable angina pectoris; E78.5 Hyperlipidemia, unspecified; F17.210 Nicotine dependence, cigarettes, uncomplicated; I71.2 Thoracic aortic aneurysm, without rupture; E11.9 Type 2 diabetes mellitus without complications; Y83.1 Surgical operation with implant of artificial internal device as the cause of abnormal reaction of the patient, or of later complication, without mention of misadventure at the time of the procedure; R00.0 Tachycardia, unspecified; Z79.01 Long term (current) use of anticoagulants; Z95.5 Presence of coronary angioplasty implant and graft; Z85.820 Personal history of malignant melanoma of skin; Z79.84 Long term (current) use of oral hypoglycemic drugs; Z91.19 Patient's noncompliance with other medical treatment and regimen
CPT/HCPCS: 71045; 71250; 76937; 80048; 80053; 80162; 81001; 82550; 82552; 82805; 82948; 83735; 83880; 84100; 84484; 85025; 85027; 85610; 85730; 86850; 86900; 86901; 86920; 87641; 88305; 88311; 93005; 93306; 93318; 93454; 93567; 93880; 93970; 93998; 94002; 94003; 94010; 94150; 94640; 94664; 94667; 94668; 94799; 96361; 96374; C1760; C1769; C1893; G0269; J0131; J0171; J0690; J1250; J1265; J1325; J1644; J1815; J1817; J1940; J2150; J2250; J2370; J2720; J2930; J3010; J3370; J3475; J3480; J7030; J7040; J7050; J7120; P9045; P9047; Q9967

== ENCOUNTER 2017-12-08 06:16 | Day surgery (SDC) | payer MEDICARE ==
[~2017-12-08] VITALS: Ht 177.8 cm; Wt 88.9 kg
[~2017-12-08 06:16] MED LIST changes: +AMIO200T PO; -APIX5TAB PO; -ASPI1TAB69 PO; +ASPI81CH6 CHEW; -DIGO0.25 PO; -DILT1CAP9 MT; +DOCU1CAP39 PO; +FURO1TAB60 PO; -METO-338 PO; +METO25TA3 PO; +OXYC1TAB63 PO; +PLAV75TA29 PO; +POTA-163 PO; +THERM PO
[2017-12-08] MEDS ORDERED: IOHEXOL 350 MG/ML 100 ML BTL (for Cath Lab) OTHER ONE (06:17)
[2017-12-08 06:35] VITALS: BP 139/93; PULSE 81; RESP 17; TEMP 98.6; O2SAT 99
[2017-12-08] MEDS ORDERED: VITA2000 PO (06:55)
[2017-12-08] MEDS ORDERED: METF1000 PO (06:55)
[2017-12-08] MEDS ORDERED: METO25TA3 PO (06:55)
[2017-12-08] MEDS ORDERED: NS 1000P @30 MLS/HR (KVO) IV SCH (07:00)
[2017-12-08] MEDS ORDERED: HEPARIN-NS/PF INJ 1,500 ML ONE (09:08)
[2017-12-08] MEDS ORDERED: MIDAZOLAM HCL 2 MG/2 ML VIAL ONE (10:29)
[2017-12-08] MEDS ORDERED: NITROGLYCERIN INJ 5 ML ONE (10:31)
[2017-12-08] MEDS ORDERED: BIVALIRUDIN 250 MG VIAL ONE (10:48)
[2017-12-08] MEDS ORDERED: STERILE WATER FOR INJECTION 10 ML VIAL ONE (10:48)
[2017-12-08] MEDS ORDERED: oxyCODONE/ACETAMINOPHEN 5 MG/325 MG TAB PO PRN (11:30)
[2017-12-08] MEDS ORDERED: oxyCODONE/ACETAMINOPHEN 10 MG/325 MG TAB PO PRN (11:30)
[2017-12-08] MEDS ORDERED: MISC INFORMATION XX ONE (11:30)
[2017-12-08] MEDS ORDERED: BACITRACIN OINT 0.9 GM PKT TOP ONE (11:30)
[2017-12-08] MEDS ORDERED: LIDOCAINE 2% JELLY 30 ML TUBE TOP PRN (11:30)
--- NOTE | 2017-12-08 11:31 | CATHPROC ---
[employer] HIS Report Study Information Study Number Admission Scheduled Start Study Start [id number] Dec 08 2017 6:16AM 12/08/2017 Dec 08 2017 10:21AM [facility] Cardiac Catheterization Admit Source Facility Department Other [facility] - Disaster Recovery Analyst Physician and Clinical Staff Initial William Aguillon Subassembly AssemblerRichard Jenkins,YONATAN Subassembly Assembler Felicia Doss,YONATAN Recorder Yeimi Bee ,RT(R) Scrub Aguila Watkins RCIS(BS) Procedures Performed Procedure Location (Site) Vessel Name Coronary Angiograms LCA Left Coronary Coronary Angiograms RCA Right Coronary Drug Eluting Inflatio DIAG Prox Left Coronary Drug Eluting Inflatio RCA Mid Right Coronary Drug Eluting Inflatio RCA Prox Right Coronary L Heart Cath PTCA DIAG Prox Left Coronary PTCA RCA Mid Right Coronary Wire insertion Radial (right) Radial Art. Equipment Time Shuttler Car Description Size Mfg Part Number Used/Scraped COPILOT VALVE, BLEEDBACK [id number] 10:25 [employer] Used CONTROL *[id number] TRANSDUCER, TRUWAVE [id number] 10:25 YEAGER SAINZ * Used W/STOCKCOCK *[id number] [phone] *[id number] [phone] *[id number] 10:25 [employer] Dynamics PACK, CCL CUSTOM * Used *[id number] 10:25 [employer] SUPPORT, ARTERIAL ADULT 54435 *[id number] Used [id number] 10:25 [employer] PACER PEN, SKIN DUAL W/ RULER * Used *[id number] 10:53 MEDTRONIC BALLOON, 2.0 X 20MM EUPHORA 20MM Used *[id number] BALLOON, 3.0 X 20MM NC [id number] 10:58 MEDTRONIC 20MM Used EUPHORA *[id number] 11:13 MEDTRONIC STENT, 3.0 12MM MARILIA 3.0 12MM Used *[id number] [id number] 11:07 MEDTRONIC STENT, 3.0 22MM MARILIA 3.0 22MM Used *[id number] [id number] 10:55 MEDTRONIC STENT, 3.0 26MM MARLIIA 3.0 26MM Used *[id number] 11:00 MEDTRONIC STENT, 3.5 30MM MARILIA 3.5 30MM Used *[id number] 10:25 Fabricly 30 YUMIKO INDEFLATOR Used *[id number] BAND, RADIAL COMPRESSION TR [id number] 11:18 Fabricly 29CM Used LARGE 29 *[id number] SHEATH, FR6 RADIAL PRELUDE 10:25 Fabricly FR 6 [id number] Used EASE 11CM [id number] 10:25 [employer]ly WIRE, EXCHANGE 260CM 3MMJ 260CM Used *[id number] [id number] 10:25 NAMIC MANIFOLD, 4 PORT * Used *[id number] 10:25 [employer]COMED OMNIPAQUE, 350 MG, 150ML 150ML [id number] Used 11:16 NYCOMED OMNIPAQUE, 350 MG, 150ML 150ML [id number] Used 11:16 NYCOMED OMNIPAQUE, 350 MG, 50ML 50ML [id number] Used [id number] 10:25 [facility] BLANKET,WARM AIR CCL * Used *0032406 WIRE, RUNTHROUGH NS FLOPPY 25-1011 10:45 [employer] MEDICAL 180CM Used .014 180CM *[id number] Equipment Model, Serial, Lot Number and Expiration Data Description Model Number Serial Number Lot Number Expiration Date BAND, RADIAL COMPRESSION TR [id number] 08-10-2020 LARGE 29 STENT, 3.0 12MM MARILIA [id number] 08-31-2019 STENT, 3.0 22MM MARILIA [id number] 07-25-2019 STENT, 3.0 26MM MARILIA [id number] 08-11-2019 STENT, 3.5 30MM MARILIA [id number] 12-14-2018 History: Current Medications Medication Dosage/Unit Route Frequency Last Date/Time Taken Statins (any) Beta Radha ASA PLAVIX LASIX Glucophage History: Allergies Allergy Reaction No Known Allergies History: Risk Factors Family History of Hypertension Dyslipidemia Previous HI Previous Heart Failure Premature CAD Yes Yes Yes Yes No Prior Valve Prior PCI Prior PCIDate Prior CABG Prior CABGDate Surgery Yes Yes 07/11/2006 Yes 07/11/2014 Cerebrovascular Peripheral Artery Chronic Lung On Dialysis Diabetes Diabetes Therapy Disease Disease Disease No No No Yes Yes Oral History: Symptoms/Diagnosis Selection Items Chest pain History: CV Disease Selection Items Known CAD History: Stress Tests Stress or Imaging Studies Performed No History: Other Disease Selection Items CAD HTN History: HI/CV Data Previous Valve Previous Cath Date Previous CABG Date Replacement Date 07/11/2014 07/11/2006 07/11/2014 History: Other Current Smoker Packs a Day Years Used Pack Years No 1 40 40 Labs Hgb (g/dl) Hct (%) WBC (l/cumm) Platelets (thousands) 11.60-17.00 35.00-51.00 4.00-11.00 150.00-450.00 15.9 47.4 10.2 243 Glucose (mg/dl) BUN (mg/dl) Creatinine (mg/dl) BUN:Creatinine (1:x) 74.00-106.00 7.00-18.00 0.50-1.30 10.00-20.00 151 20 1.1 18.2 Na (meq/l) K (meq/l) 136.00-145.00 3.50-5.10 141 4.2 INR (PTT:PT) 0.90-1.10 0.9 CPK-MB (ng/ML) 0.50-3.60 Not Drawn Medication Medication Total Dose (Bolus/Oral) Medication Total Dosage/Unit 1% XYLOCAINE 5 mL ANGIOMAX BOLUS 13.5 mL FENTANYL 50 mcg NTG (IC) 200 mcg VERSED 2 mg Medications (Bolus/Oral) Medication Time Given Dosage/Unit Administered By Reason VERSED 12/08/2017 10:46:24 AM 2 mg Felicia Doss 2 mg VERSED given in lab by Felicia Doss, RN in Left Antecubital via Peripheral IV. Ordered by William Escamilla. 1% XYLOCAINE 12/08/2017 10:46:41 AM 5 mL William Villagran 5 mL 1% XYLOCAINE given in lab by William Villagran in Right Radial via Subcutaneous. Ordered by William Villagran. FENTANYL 12/08/2017 10:47:26 AM 50 mcg Felicia Doss 50 mcg FENTANYL given in lab by Felicia Doss, RN in Left Antecubital via Peripheral IV. Ordered by William Villagran. NTG (IC) 12/08/2017 10:48:55 AM 200 mcg William Villagran 200 mcg NTG (IC) given in lab by William Villagran via Intra-coronary. Ordered by William Villagran. ANGIOMAX BOLUS 12/08/2017 10:52:22 AM 13.5 mL Felicia Doss 13.5 mL ANGIOMAX BOLUS given in lab by Felicia Doss, YONATAN via Peripheral IV. Ordered by Tigist Villagran Medication (Drip) Medication Time Given Dosage/Unit Concentration/Unit Diluent (ml) Solution ANGIOMAX DRIP 12/08/2017 10:54:00 AM 1.772 mg/kg/hr 250 mg 50 NaCl .9 1.772 mg/kg/hr ANGIOMAX DRIP given in lab by Felicia Doss, OYNATAN via Peripheral IV. Pump/Drip Flow = 31.5 ml/hr using NaCl .9 with a concentration of 250 mg in 50 ml. Ordered by William Villagran. ANGIOMAX DRIP 12/08/2017 11:22:07 AM 1.772 mg/kg/hr 250 mg 50 NaCl .9 1.772 mg/kg/hr ANGIOMAX DRIP given in lab by Felicia Doss, YONATAN via Peripheral IV. Pump/Drip Flow = 31.51 ml/hr using NaCl .9 with a concentration of 250 mg in 50 ml. Ordered by William Villagran. Discontinued at 12/08/2017 11:23. [employer] [facility] 12/08/2017 10:22:25 AM 50 mL (IV) NaCl .9 Patient arrived on [facility] via Peripheral IV. Pump/Drip Flow using NaCl .9. Initial Case Assessment Cardiovascular HR Rhythm NIBP Chest Pain 76 sr 164/101 0 Edema Present Skin color Skin None Normal Warm Dry Circulatory - Right Pulses Dorsalis Pedis Femoral 2 3 Scale (0,1,2,3,4,d) Circulatory - Left Pulses Dorsalis Pedis Femoral 2 3 Scale (0,1,2,3,4,d) Circulatory - Lower Extremities Color Lower Right Color Lower Left Normal Normal Neurological State Oriented to time-place- Alert Moves all extremities person Respiration - General Respiration Rate SpO2 (%) (B/min) 23 97 Final Case Assessment Cardiovascular HR Rhythm NIBP Chest Pain 76 sr 164/101 0 Edema Present Skin color Skin None Normal Warm Dry Circulatory - Right Pulses Dorsalis Pedis Femoral 2 3 Scale (0,1,2,3,4,d) Circulatory - Left Pulses Dorsalis Pedis Femoral 2 3 Scale (0,1,2,3,4,d) Circulatory - Lower Extremities Color Lower Right Color Lower Left Normal Normal Neurological State Oriented to time-place- Alert Moves all extremities person Respiration - General Respiration Rate SpO2 (%) (B/min) 23 97 Chronological Log Time Study Chronological Log 10:20:00 Patient arrived via Bed. 10::48 Patient Name, D.O.B, / Armband Verified By R.N. 10::48 Consent signed by the physician and the patient and verified by the Disaster Recovery Analyst staff. 10::49 Pre-op and post- op instructions given; patient acknowledges understanding of instructions. Verbal Stimulation=~VERBAL~ Physical Stimulation=~PHYSICAL~ Airway=~AIRWAY~ Respiration=~RESPIR ATION~ 10::49 TOTAL=~TOTAL~. (0=absent, 1=limited, 2=present) 10:22:04 Presedation assessment performed by Disaster Recovery Analyst RN. 10:22:15 Allens test performed on the right radial and ulnar artery. 10:22:19 Patient has been NPO for More than 6Hrs. 10:22:19 Skin Breakdown- psoriasis 10:22:20 Patient Warmer Placed on the Table. 10:22:22 [place] Prominences Protected 10:22:24 A # 20 IV was noted in the Antecubital (left). Grade = 0 10:22:25 Patient arrived on [facility] via Peripheral IV. Pump/Drip Flow using NaCl .9. 10:22:26 History and physical on the chart or being dictated. Assessment: Initial Case, HR=76 BPM, Rhythm=sr, JASA=919/101 mmhg, Chest Pain=0, Edema=None, Co candi=Normal, Skin = Warm, Dry Right Pulses: Sixto Ped=2, Femoral=3 Left Pulses: Sixto Ped=2, Femoral=3 10:22:27 Lower Right Extremities: Color=Normal Lower Left Extremities: Color=Normal Neurological: State=Alert, Ox3, JOHNSON Respiration: Resp=23 B/min, SpO2=97 % Vitals capture started with the following parameters, Patient=Adult, Interval=5 min, Initial Pr fxlvbm=747 mmHg, 10:26:53 Deflation Rate=5 mmHg, Cuff placed on Right Arm 10:27:28 HR=81 bpm, XADL=894/101 mmhg, SpO2=96.0 %, Resp=14 B/min, Pain=0, Sandeep=10, Villa=2 10:32:31 HR=78 bpm, GSEB=347/99 mmhg, Resp=8 B/min, Pain=0, Sandeep=10, Villa=2 10:33:18 Reference ECG taken 10:35:57 Right Radial and groin(s) prepped with 2% chlorhexidine, and draped after a 3 min. waiting time. 10:36:03 MD paged 10:37:28 HR=75 bpm, GVHA=543/101 mmhg, SpO2=97.0 %, Resp=12 B/min 10:40:07 Pressure channel 1 zeroed. 10:41:58 MD responded 10:43:06 HR=80 bpm, YJJG=146/94 mmhg, SpO2=98.0 %, Resp=13 B/min 10:43:24 MD arrived. Time Out. Correct patient, correct procedure, correct physician, labs, allergies, and equipment verified with laborer [employer] 10:46:04 team present. Fire risk assesment completed (see hard stop sheet for coding). Time Out Conc urred by MD and individual staff in procedure. 10:46:24 2 mg VERSED given in lab by Felicia Doss, YONATAN in Left Antecubital via Peripheral IV. Orde red by William Villagran. 10:46:31 Case Start 10:46:41 5 mL 1% XYLOCAINE given in lab by William Villagran in Right Radial via Subcutaneous. Ordered by William Villagran. 10:47:19 Access site was Right Radial Artery. 10:47:26 HR=94 bpm, AFFW=684/107 mmhg, SpO2=96.0 %, Resp=18 B/min, Pain=0, Sandeep=10, Villa=2 10:47:26 50 mcg FENTANYL given in lab by Felicia Doss, RN in Left Antecubital via Peripheral IV. Ordered by William Villagran. 10:47:29 A wire was inserted via Radial (right). A SHEATH, FR6 RADIAL PRELUDE EASE 11CM FR 6 was advanced into the Radial (right) using the Perc utaneous 10:47:36 technique. A JR 5.0 GUIDE CATHETER FR 6 was advanced over a wire. OMNIPAQUE, 350 MG, 150ML 150ML was used for 10:48:09 injections. 10:48:55 200 mcg NTG (IC) given in lab by William Villagran via Intra-coronary. Ordered by Tigist Villagran. Recorded Pressure: Ao, HR=89, Condition=Condition 1 10:49:15 (Aorta) Ao 127/84/103 10:49:41 The RCA was injected and visualized at various angles. OMNIPAQUE, 350 MG, 150ML 150ML used . 10:50:36 A WIRE, RUNTHROUGH NS FLOPPY .014 180CM 180CM was inserted via Radial (right). 10:51:11 Interventional wire has crossed the lesion A BALLOON, 2.0 X 20MM EUPHORA 20MM was inserted over WIRE, RUNTHROUGH NS FLOPPY .014 180CM 180C M via 10:52:11 the Radial (right). 10:52:22 13.5 mL ANGIOMAX BOLUS given in lab by Felicia Doss, YONATAN via Peripheral IV. Ordered by William Najera. 10:52:29 HR=87 bpm, CNLH=984/97 mmhg, SpO2=93.0 %, Resp=19 B/min, Pain=0, Sandeep=10, Villa=2 A BALLOON, 2.0 X 20MM EUPHORA 20MM over a WIRE, RUNTHROUGH NS FLOPPY .014 180CM 180CM in the RC A Mid 10:53:15 was inflated using a 30 YUMIKO INDEFLATOR at 8 yumiko for 30 sec. 10:53:56 Balloon Removed. 1.772 mg/kg/hr ANGIOMAX DRIP given in lab by Felicia Doss, YONATAN via Peripheral IV. Pump/Drip F low = 31.5 ml/hr 10:54:00 using NaCl .9 with a concentration of 250 mg in 50 ml. Ordered by William Villagran. A STENT, 3.0 26MM MARILIA 3.0 26MM was advanced through a JR 5.0 GUIDE CATHETER FR 6 over a WIRE, 10:54:42 RUNTHROUGH NS FLOPPY .014 180CM 180CM. A STENT, 3.0 26MM MARILIA 3.0 26MM was deployed using a 30 YUMIKO INDEFLATOR at 14 atmospheres for 10 seconds in 10:55:28 the RCA Mid. 10:56:47 Delivery device removed A BALLOON, 3.0 X 20MM NC EUPHORA 20MM was inserted over WIRE, RUNTHROUGH NS FLOPPY .014 180CM 1 80CM 10:57:05 via the Radial (right). 10:57:26 HR=89 bpm, JVIV=267/99 mmhg, SpO2=91.0 %, Resp=18 B/min, Pain=0, Sandeep=10, Villa=2 A BALLOON, 3.0 X 20MM NC EUPHORA 20MM over a WIRE, RUNTHROUGH NS FLOPPY .014 180CM 180CM in the RCA 10:57:39 Mid was inflated using a 30 YUMIKO INDEFLATOR at 20 yumiko for 15 sec. A STENT, 3.5 30MM MARILIA 3.5 30MM was advanced through a JR 5.0 GUIDE CATHETER FR 6 over a WIRE, 10:58:24 RUNTHROUGH NS FLOPPY .014 180CM 180CM. A STENT, 3.5 30MM MARILIA 3.5 30MM was deployed using a 30 YUMIKO INDEFLATOR at 14 atmospheres for 15 seconds in 11:00:08 the RCA Prox. 11:01:03 Delivery device removed 11:01:47 Runthrough Wire removed 11:02:13 A WIRE, EXCHANGE 260CM 3MMJ 260CM was inserted via Radial (right). After removing the current catheter a XBLAD 4.0 GUIDE CATHETER FR 6 was advanced over a WIRE, E XCHANGE 11:02:24 260CM 3MMJ 260CM. 11:02:30 HR=88 bpm, LGZX=898/98 mmhg, SpO2=97.0 %, Resp=19 B/min, Pain=0, Sandeep=10, Villa=2 11:03:45 The LCA was injected and visualized at various angles. OMNIPAQUE, 350 MG, 150ML 150ML used . 11:04:36 A WIRE, RUNTHROUGH NS FLOPPY .014 180CM 180CM was inserted via Radial (right). 11:05:04 Interventional wire has crossed the lesion A BALLOON, 2.0 X 20MM EUPHORA 20MM was inserted over WIRE, RUNTHROUGH NS FLOPPY .014 180CM 180C M via 11:05:58 the Radial (right). A BALLOON, 2.0 X 20MM EUPHORA 20MM over a WIRE, RUNTHROUGH NS FLOPPY .014 180CM 180CM in the DI AG 11:06:20 Prox was inflated using a 30 YUMIKO INDEFLATOR at 12 yumiko for 20 sec. A BALLOON, 2.0 X 20MM EUPHORA 20MM over a WIRE, RUNTHROUGH NS FLOPPY .014 180CM 180CM in the DI AG 11:06:55 Prox was inflated using a 30 YUMIKO INDEFLATOR at 12 yumiko for 20 sec. 11:07:13 Balloon Removed. 11:07:29 HR=87 bpm, DZJP=533/95 mmhg, SpO2=91.0 %, Resp=18 B/min, Pain=0, Sandeep=10, Villa=2 A STENT, 3.0 22MM MARILIA 3.0 22MM was advanced through a XBLAD 4.0 GUIDE CATHETER FR 6 over a WIR E, 11:07:49 RUNTHROUGH NS FLOPPY .014 180CM 180CM. A STENT, 3.0 22MM MARILIA 3.0 22MM was deployed using a 30 YUMIKO INDEFLATOR at 14 atmospheres for 10 seconds in 11:09:06 the DIAG Prox. 11:10:10 Re-inflated the stent balloon in the DIAG Prox to 8 YUMIKO for 30 seconds. 11:11:02 Delivery device removed 11:12:28 HR=94 bpm, GTBU=429/104 mmhg, SpO2=94.0 %, Resp=14 B/min, Pain=0, Sandeep=10, Villa=2 A STENT, 3.0 12MM MARILIA 3.0 12MM was advanced through a XBLAD 4.0 GUIDE CATHETER FR 6 over a WIR E, 11:13:47 RUNTHROUGH NS FLOPPY .014 180CM 180CM. A STENT, 3.0 12MM MARILIA 3.0 12MM was deployed using a 30 YUMIKO INDEFLATOR at 20 atmospheres for 20 seconds in 11:14:05 the DIAG Prox. 11:14:58 Delivery device removed A BALLOON, 3.0 X 20MM NC EUPHORA 20MM was inserted over WIRE, RUNTHROUGH NS FLOPPY .014 180CM 1 80CM 11:15:44 via the Radial (right). A BALLOON, 3.0 X 20MM NC EUPHORA 20MM over a WIRE, RUNTHROUGH NS FLOPPY .014 180CM 180CM in the DIAG 11:16:05 Prox was inflated using a 30 YUMIKO INDEFLATOR at 20 yumiko for 15 sec. 11:16:47 Balloon Removed. 11:17:13 RUNTHROUGH Wire removed 11:: Catheter was removed 11:17:29 HR=83 bpm, ICOF=117/99 mmhg, SpO2=95.0 %, Resp=15 B/min, Pain=0, Sandeep=10, Villa=2 11:17:42 Case End Assessment: Final Case, HR=76 BPM, Rhythm=sr, VAIW=204/101 mmhg, Chest Pain=0, Edema=None, Col or=Normal, Skin = Warm, Dry Right Pulses: Sixto Ped=2, Femoral=3 Left Pulses: Sixto Ped=2, Femoral=3 11:17:54 Lower Right Extremities: Color=Normal Lower Left Extremities: Color=Normal Neurological: State=Alert, Ox3, JOHNSON Respiration: Resp=23 B/min, SpO2=97 % 11:18:00 Catheter(s) removed without difficulty Radial Compression Device Used. 12 mLs of air placed in BAND, RADIAL COMPRESSION TR LARGE 29 2 9CM. Affected 11:18:03 hand 96 % O2 saturation. 11:18:19 No case complications noted. 11:18:20 Cine recording checked. 11:18:21 Bedside Report will be given. 11:18:23 Implantable Device card placed in patient's chart. 11:18:26 A Left Heart Cath was performed. 11:21:22 Vitals capture stopped. 1.772 mg/kg/hr ANGIOMAX DRIP given in lab by Felicia Doss, YONATAN via Peripheral IV. Pump/Drip Flow = 31.51 ml/hr 11:22:07 using NaCl .9 with a concentration of 250 mg in 50 ml. Ordered by William Villagran. Discontinued at 12/08/2017 11:23. 11:29:07 [facility] End Study - Contrast Media Used In Study Contrast Total Opened (mL) Total Used (mL) Total Wasted (mL) Omnipaque 200 200 0 End Study - Maximum Contrast Load Max Contrast Load (mL) 404.1 End Study - Radiation Exposure Fluoro Time (minutes) 7.6 End Study - Sheaths Sheaths Pulled By Sheath Hold Time (min) Aguila Watkins End Study - Patient Disposition Complications Transferred To Interventional Outcome No Telemetry Bed successful
--- NOTE | 2017-12-08 11:52 | MA ---
cc: William Villagran MD DATE: 12/08/2017 DATE OF PROCEDURE: 12/08/2017. INDICATION: Unstable angina. PROCEDURES PERFORMED: 1. Fluoroscopy with interpretation. 2. Coronary angiography. 3. Percutaneous intervention with drug-eluting stents to the right coronary artery and left anterior descending/diagonal branch coronary arteries. METHOD: Risks, benefits, alternatives were discussed with the patient. The patient understood and consented to the procedure. PROCEDURE: The patient was brought to the catheterization lab and placed on the catheterization table. The right wrist was prepped and draped in sterile fashion. The right wrist was anesthetized with 2% lidocaine. Right radial artery was cannulated and 6-Senegalese, 7 cm sheath was placed without difficulty. DIAGNOSTIC ANGIOGRAPHY: 1. The left main coronary has mild to moderate disease distally. 2. The left anterior descending coronary has 80% stenosis right at the bifurcation of a diagonal branch into the proximal diagonal branch itself, which is moderate caliber size. Mid left anterior descending coronary is 100% occluded. 3. The left circumflex is very small caliber with 100% occluded obtuse marginal branch. 4. Right coronary artery is a large dominant vessel giving rise to posterior descending branch, has 80% proximal stenosis in the posterior descending branch. The proximal right coronary has tortuosity with 70% stenosis. The mid to distal segment has 75% stenosis. PERCUTANEOUS INTERVENTION: The patient was initially planned for 2-vessel bypass, but the aortic valve replacement took extended length of time, so the bypass was aborted. He is now here for planned percutaneous intervention. Right coronary circulation was selectively engaged with a 6-Senegalese JR5 guide catheter. Angiomax was administered throughout the entire procedure to maintain appropriate anticoagulation. jellyfish Runthrough wire was navigated down the distal posterior descending branch. A 2.0 x 20 mm RX Euphora balloon was deployed in the proximal posterior descending artery. Repeat angiography showed moderate residual stenosis, but small caliber size. 3.0 x 26 mm RX Resolute Ed stent was advanced in the mid distal right coronary and deployed and postdilated with a 3.0 x 20 mm NC balloon to 20 atmospheres. Repeat angiography showed no residual stenosis, but in the proximal segment there appeared to be moderate to severe stenosis. A 3.0 x 30 mm RX Resolute Kanaranzi stent was advanced into the proximal segment and deployed. Repeat angiography showed no residual stenosis. The wire was removed, guide catheter removed. Attention was then directed to the left circulation. Left circulation was selectively engaged with 6-Senegalese XBLAD 4.0 guide catheter.. Wire was navigated down the diagonal branch. A 2.0 x 20 mm balloon was then deployed in the proximal diagonal branch. A 3.0 x 26 mm RX Resolute Kanaranzi stent was advanced to the left anterior descending coronary, extending into the proximal diagonal branch and deployed. A 3.0 x 12 mm RX Resolute Kanaranzi stent was then deployed in the proximal left anterior descending coronary artery. Repeat angiography showed no residual stenosis, АНДРЕЙ 3 flow. Guide catheter was removed, wire removed and HemoBand applied. CONCLUSIONS: 1. Successful percutaneous intervention to the left anterior descending, extending in the first diagonal branch with drug-eluting stent. 2. Successful percutaneous intervention to the right coronary artery. PLAN: Monitor the patient closely for any post-procedural complication. The procedure went very well. He tolerated it well without any symptoms, arrhythmias or complaints. He is already on Plavix and tolerating well. If he has no immediate post-procedure complications, may consider discharge later today. William Villagran MD KEN/TL , 11:27 AM , 11:51 AM
== END 2017-12-08 17:53 | disposition home or self-care (01) ==
LOC: HDOC 06:16 → HDIC 06:17 → HDOC 17:53
PROVIDERS: ATTEND Internal Medicine
DX: I20.0 Unstable angina (principal); I48.92 Unspecified atrial flutter; I10 Essential (primary) hypertension; E78.5 Hyperlipidemia, unspecified; E11.9 Type 2 diabetes mellitus without complications; J44.9 Chronic obstructive pulmonary disease, unspecified; I25.2 Old myocardial infarction
CPT/HCPCS: 86850; 86900; 86901; 92928; 92929; 93454; 99152; 99153; C1725; C1769; C1874; C1887; C1893; J0583; J1644; J2250; J3010; Q9967